=== PATIENT | male | born 1940 | race Caucasian/White ===

== ENCOUNTER 2016-08-01 09:58 | Inpatient (IN) ==
[2016-08-01] MEDS ORDERED: Albuterol 2.5 MG/3 ML NEBULIZER IH PRN (13:55)
--- NOTE | 2016-08-01 14:31 | Internal Med History&Physical ---
<Braeden Rueda - Last Filed: 08/02/16 12:58> Date of Encounter: 08/02/16 Time of Encounter: 14:00 Assessment and Plan (1) HCAP (healthcare-associated pneumonia) Current visit: Yes Status: Acute -Admission in 07/17/16 for pneumonia for 5 days. Abx unknown during treatment. -Patient on Bipap and tolerating it well. Is able to communicate without difficulty. -CXR on 07/30 shows bilateral pulmonary infiltrates. ECHO on 06/26/16 shows LVEF 60% -Labs ordered. Blood culture, sputum, Patient received leviquin and fluids in ED prior to transfer -Will continue abx, fluids, BIPAP. (2) Acute and chronic respiratory failure with hypoxia Current visit: Yes Status: Acute -Likely do to HCAP. See above (3) Chronic kidney disease (CKD) Current visit: Yes Status: Acute -Cr improving -Continue therapy. -Established with [facility]. Qualifiers: Chronic kidney disease stage: stage 3 (moderate) Qualified Code(s): N18.3 - Chronic kidney disease, stage 3 (moderate) (4) Tobacco abuse Current visit: No Status: Chronic -Smokes 2 cigars per day. -Consider adding nicotine patch. (5) Diabetes Current visit: Yes Status: Acute -Patient started on home DM regimen. Qualifiers: Diabetes mellitus type: type 2 Diabetes mellitus complication status: with unspecified complications Diabetes mellitus fci insulin use: with fci use Qualified Code(s): E11.8 - Type 2 diabetes mellitus with unspecified complications; Z79.4 - FPC (current) use of insulin (6) Goals of care, counseling/discussion Current visit: Yes Status: Acute -Patients KARAN is , Yenni, -Lives with . Good support. Established with [facility]. -Patient wishes to remain full code. (7) Alcohol abuse Current visit: No Status: Chronic - reports patient drinks 5/day. -A protocol in place. -Patient does not have signs of alcohol withdraw at this time. Internal Medicine - H&P: HPI Chief complaint: Shortness of Breath Admitted From: Hospital to Hospital Transfer Plans for Post Hospital Care: Home History of present illness: Mr. Cummins is a 76 year old male, PHM:HTN, ETOH, insulin req DM, DVT, CKD III, transferred from [facility] with acute respiratory failure. Patient had recent hospitalization for pneumonia on July 17 for 5 days and sent home on antibiotics. Unsure of abx in hospital and outpatient. Patient improved. He has never been intubated, but placed on home oxygen for the first time. On 07/31 patient's noticed his home oxygen saturation was 80%. brought patient to the ED. At that time, he did have a non productive cough, did not complain of sudden SOB, no fever, chest pain, headache or GI complaints. Currently, the patient is on BIPAP and tolerating it well. Feels like he can breath better. Still feels SOB. Besides the SOB, itching is his only complaint. He has had this issue for years and seems to improve with Lasix. Patient is on coumadin for DVT in 1991. Smokes 2 cigars a day. Drinks 5 beers per day. Yenni , his is his POA. 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 Past Med Surg Social Fam HX - Past Medical History Medical history: arthritis, asthma, COPD, DVT, diabetes, GERD, hyperlipidemia, hypertension, kidney stones, osteoporosis (Left hip avascular necrosis.), RA, renal disease, SVT, other (Psoriasis. Alcohol dependency. Anemia. Nicotine dependency.) Psychiatric history: no psych history, other - Past Surgical History Surgical History: hip replacement, ureteral stent, vascular surgery (Right lower extremity venous thrombectomy s/p DVT), other (Penile implant 2. Colonoscopy.) - Social History Smoking Status: Current every day smoker Smokeless Tobacco Status: No Alcohol use: occasionally, heavy (Drinks as much as 6-12 beers per day. Rarely less than 2-3 beers per day.) Drug use: none - Family History Father Living Status: Internal Medicine - H&P: Meds Warfarin [Coumadin] 5 mg PO Q48H 06/24/16 [History] Atorvastatin [Lipitor] 20 mg PO HS 07/01/16 [History] Carvedilol [Coreg] 12.5 mg PO BID 07/01/16 [History] Cholecalciferol (Vitamin D3) [Vitamin D3] 5,000 unit PO DAILY 07/01/16 [History] CloNIDine HCl [Clonidine HCl] 0.3 mg PO TID 07/01/16 [History] Doxazosin [Cardura] 4 mg PO BID 07/01/16 [History] Hydroxyzine HCl 25 mg PO Q6H 07/01/16 [History] Insulin DETEMIR [Levemir Flextouch] 26 unit SQ HS 07/01/16 [History] NIFEdipine XL (24 HR) [Procardia XL] 60 mg PO BID 07/01/16 [History] Sitagliptin Phosphate [Januvia] 50 mg PO DAILY 07/01/16 [History] Furosemide [Lasix] 40 mg PO DAILY 08/02/16 [History] Warfarin [Coumadin] 2.5 mg PO Q48H 08/02/16 [History] Allergies ciprofloxacin [From Cipro] Allergy (Verified 07/01/16 13:16) See Comments doxycycline Allergy (Verified 07/01/16 13:16) Redness of Skin Erythromycin Base Allergy (Verified 07/01/16 13:16) Rash guanfacine Allergy (Verified 07/01/16 13:16) See Comments ofloxacin Allergy (Verified 07/01/16 13:16) Hives Penicillins [PCN] Allergy (Verified 07/01/16 13:16) See Comments Procaine Allergy (Verified 07/01/16 13:16) See Comments sulfamethoxazole Allergy (Verified 07/01/16 13:16) See Comments Tocainide [From Tonocard] Allergy (Verified 07/01/16 13:16) See Comments All Systems PM: A 10-system review of systems was performed and is negative for pertinent findings except as documented above in the HPI. - Constitutional Constitutional: as per HPI, no chills, no fatigue, no fever(s), no night sweats , no weakness - EENT Eyes: no change in vision, no discharge, no pain, no photophobia - Cardiovascular Cardiovascular ROS IM: no chest pain, no diaphoresis, no dyspnea, no lightheadedness, no palpitations, no syncope - Respiratory Respiratory: cough, dyspnea, no pain on inspiration, no excessive phlegm production, no pain with cough - Gastrointestinal Gastrointestinal: no abdominal pain, no diarrhea, no hematemesis, no hematochezia, no melena, no nausea, no vomiting - Genitourinary Genitourinary ROS male: no difficulty urinating, no dysuria - Integumentary Integumentary IM: pruritus, sores (Diffuse. From itching. ) - Neurological Neurological ROS: no confusion, no convulsions, no focal weakness, no numbness, no tingling, no tremor(s) - Psychiatric Psychiatric: no confusion, no depression - Constitutional Vitals: Resp Pulse Ox 27 99 08/01/16 13:59 08/01/16 13:59 General appearance: Present: A&O X 3, pleasant, answers questions appropriately - Head Head exam: Present: atraumatic, normal inspection - Respiratory Respiratory exam: Present: rhonchi, wheezes - Cardiovascular Cardiovascular exam: Present: RRR, tachycardia. Absent: diastolic murmur, systolic murmur - GI/Abdominal GI/Abdominal exam: Present: soft, no peritoneal signs. Absent: distended, tenderness - Neurological Exam Neurological exam: Present: oriented X3, no focal deficits. Absent: speech deficit - Psychiatric Psychiatric exam: Present: normal affect, normal mood - Skin Additional comments: Sores from chronic itching throughout the body. Internal Med - H&P Results - Labs CBC & Chem 7: 08/02/16 07:49 08/02/16 05:28 <Willie Romero - Last Filed: 08/02/16 18:25> Date of Encounter: 08/01/16 Internal Medicine - H&P: HPI History of present illness: Mr. Cummins is a 76 year old male All Systems PM: A 10-system review of systems was performed and is negative for pertinent findings except as documented above in the HPI. - Constitutional Vitals: Temp Pulse Resp BP Pulse Ox 97.0 F L 75 27 108/76 95 08/02/16 15:00 08/02/16 15:00 08/02/16 16:25 08/02/16 15:00 08/02/16 16:25 Internal Med - H&P Results - Labs CBC & Chem 7: 08/02/16 07:49 08/02/16 05:28 Labs: Short CBC 08/02/16 Range/Units 07:49 WBC 13.7 H (4.3-11.1) K/mcL Hgb 10.5 L (12.9-16.9) g/dL Hct 31.2 L (37.5-50.1) % Plt Count 363 (140-400) K/mcL Neutrophils # 11.5 H (1.6-8.9) K/mcL BMP 08/02/16 05:28 Sodium 138 Potassium 3.3 L Chloride 104 Carbon Dioxide 22 BUN 27 H Creatinine 1.54 H Glucose 37 L* Calcium 9.1 - ABG Interpretation ABG results: 08/01/16 08/02/16 16:50 06:16 ABG pH 7.47 H 7.40 ABG pCO2 36 44 ABG pO2 68 L 68 L ABG HCO3 26.2 27.3 H ABG Total CO2 27.3 H 28.7 H ABG O2 Saturation 94 L 93 L ABG Base Excess 2.5 2.1 - Impressions ITS Impressions Chest X-Ray 08/01/16 13:55 IMPRESSION: 1. Worsening bilateral lung infiltrates, suspicious for pneumonia. D/ / 08/01/2016 17:33:33 Jabari Morse MD / [facility] Interpreting Provider: Jabari Morse MD - Attending Attestation I examined this patient and my medical decision-making was reviewed with the Resident Physician on 08/01/16. I agree with the documented findings, disposition and treatment plan as described except to the extent set forth below. Please see event note of this day for attestation. Pt high risk due to potential for further acute respiratory failure.
[2016-08-01 14:36] LABS: Basophils # 0.1 K/mcL (0.0-0.2); Basophils % 0.6 %; Eosinophils # 0.4 K/mcL (0.0-0.6); Eosinophils % 3.3 %; Hematocrit 34.5 % (37.5-50.1); Hemoglobin 11.6 g/dL (12.9-16.9); Immature Granulocytes % 0.5 % (0-4); Lymphocytes # 1.2 K/mcL (0.6-4.6); Mean Corpuscular HGB Conc 33.6 g/dL (31.6-35.5); Mean Corpuscular Hemoglobin 29.8 pg (28.0-33.3); Mean Corpuscular Volume 88.7 fL (83.0-100.0); Mean Platelet Volume 9.9 fL (9.4-12.4); Neutrophils # 9.6 K/mcL (1.6-8.9); Platelet Count 412 K/mcL (140-400); Red Blood Count 3.89 M/mcL (4.19-5.50); Red Cell Distribution Width 12.5 % (11.5-14.5); Segmented Neutrophils % 77.6 %
[2016-08-01 14:47] LABS: INR 3.6; Prothrombin Time 40.1 Seconds (9.4-12.1)
[2016-08-01 14:50] LABS: Activated Partial Thrombo Time 43.8 Seconds (26.0-36.0)
[2016-08-01 15:20] LABS: Albumin 2.9 g/dL (3.5-5.0); Albumin/Globulin Ratio 0.5 (1.1-2.2); Bilirubin,Total 0.5 mg/dL (0.2-1.2); Calcium 9.7 mg/dL (8.6-10.8); Globulin 5.3 g/dL (2.4-3.5); Potassium 4.1 mEq/L (3.5-4.5); Total Protein 8.2 g/dL (6.0-8.3)
[2016-08-01] MEDS: Ipratropium/Albuterol Neb 3 ML IH SCH ×2 (16:21→22:10)
[2016-08-01 16:57] LABS: ABG Base Excess 2.5 mEq/L (-2.0 to 3.0); ABG HCO3 26.2 mEQ/L (21-27); ABG Oxygen Saturation 94 % (95-98); ABG PCO2 36 mmHg (35-45); ABG PH 7.47 pH Units (7.32-7.45); ABG PO2 68 mmHg (85-104); ABG TCO2 27.3 mEq/L (20-26)
[2016-08-01 16:58] LABS: Blood Gas FiO2 35 %
[2016-08-01] MEDS ORDERED: *HR* Warfarin 2.5 MG TABLET PO SCH (18:00)
[2016-08-01] MEDS ORDERED: Dextrose Gel 15 GM PO PRN ×2 (18:24)
[2016-08-01] MEDS ORDERED: *HR* Dextrose 50 % in Water (Syg) 50 ML SYRINGE IVP PRN (18:24)
[2016-08-01] MEDS ORDERED: D5% in Water 1,000 ML IV PRN (18:24)
[2016-08-01] MEDS ORDERED: *HR* LORazepam 2 MG/ML VIAL IVP PRN ×3 (18:26)
--- NOTE | 2016-08-01 18:37 | Event Note ---
Date of Encounter: 08/01/16 Time of Encounter: 14:00 Full H&P to be completed 76 y/o male with history of HTN, ETOH and insulin req DM transferred from [facility] with acute respiratory failure. Pt recently hospitalized end of June for hypertensive emergency and again early Jul for pneumonia. He continued to have significant dyspnea. His oxygen saturation was 70% and he was started on bipap. At the time of arrival here he is feeling somewhat better. He remains on bipap with oxygen saturation of 90% Exam Alert. Moderate resp distress at rest Heart tachy and regular Lungs with diffuse rhonchi bilaterally. No wheeze No edema I/P 1. Acute hypoxic resp failure 2. Multifocal pneumonia 3. ETOH abuse 4. Tobacco abuse 5. HTN 6. Ins req DM 7. CKD 3 Pt is high risk for worsening respiratory complications. He is admitted inpatient and is full code per our conversation. His is POA.
[2016-08-01] MEDS: cloNIDine HCl 0.1 MG TABLET PO SCH ×2 (18:50→20:23)
[2016-08-01] MEDS ORDERED: Vancomycin (wt based) 1,000 MG VIAL IVPB SCH (19:00)
[2016-08-01] MEDS ORDERED: Vancomycin 2,000 MG in D5% in Water 500 ML IVPB ONE (19:00)
[2016-08-01] MEDS: Thiamine (B-1) 100 MG, Folic Acid 1 MG, MVI, adult with vitamin K 10 ML in 0.9 % Sodi... IV SCH (19:23)
[2016-08-01] MEDS: NIFEdipine XL (24 HR) 60 MG TAB.ER.24 PO SCH (20:22)
[2016-08-01] MEDS: Insulin LISPRO 300 UNITS/3 ML VIAL SQ SCH (20:23)
[2016-08-01] MEDS: Insulin DETEMIR 100 UNIT/ML X5UNITS SQ SCH (20:23)
[2016-08-01] MEDS ORDERED: INSULIN DETEMIR 26 UNIT SQ SCH (21:00)
[2016-08-01] MEDS: Aztreonam 2,000 MG in D5% in Water (Mini-Bag+) 100 ML IVPB SCH (23:42)
[2016-08-02] MEDS ORDERED: *HR* LORazepam 1 MG TABLET PO ONE (03:25)
[2016-08-02] MEDS: Ipratropium/Albuterol Neb 3 ML IH SCH ×4 (04:28→22:46)
[2016-08-02 06:17] LABS: INR 3.3; Prothrombin Time 36.9 Seconds (9.4-12.1)
[2016-08-02 06:24] LABS: ABG Base Excess 2.1 mEq/L (-2.0 to 3.0); ABG HCO3 27.3 mEQ/L (21-27); ABG Oxygen Saturation 93 % (95-98); ABG PCO2 44 mmHg (35-45); ABG PO2 68 mmHg (85-104); ABG TCO2 28.7 mEq/L (20-26); Blood Gas FiO2 40 %
[2016-08-02 06:26] LABS: Calcium 9.1 mg/dL (8.6-10.8); Magnesium 1.4 mg/dL (1.6-2.6); Potassium 3.3 mEq/L (3.5-4.5)
--- NOTE | 2016-08-02 08:17 | Internal Med Progress Note ---
<Braeden Rueda - Last Filed: 08/02/16 13:37> Date of Encounter: 08/02/16 Time of Encounter: 08:15 - Assessment and plan (1) HCAP (healthcare-associated pneumonia) Current Visit: Yes Status: Acute Assessment and plan: -Admission on 07/17/16 for pneumonia for 5d. Abx unknown during treatment -Patient on Bipap and tolerating it well. Is able to communicate without difficulty -CXR on 07/30 shoes bilateral pulmonary infiltrates. ECHO on in June 2016 showed LVEF 60% -Awaiting BC and sputum culture. -Patient has multiple allergies making abx choice difficult. Pseudomonas coverage, atypical and anaerobes. Currently on Vanc, Levaquin, and Aztreonam. -Consider switching abx to merpenem, vanc and gentamicin. (2) Acute and chronic respiratory failure with hypoxia Current Visit: Yes Status: Acute Assessment and plan: -Likely due to HCAP -See above. (3) Chronic kidney disease (CKD) Current Visit: Yes Status: Acute Assessment and plan: -Monitor Qualifiers: Chronic kidney disease stage: stage 3 (moderate) Qualified Code(s): N18.3 - Chronic kidney disease, stage 3 (moderate) (4) Tobacco abuse Current Visit: No Status: Chronic Assessment and plan: -Consider adding nicotine patch. (5) Diabetes Current Visit: Yes Status: Acute Assessment and plan: -Patient became hypoglycemic on home medication. Amp given. No complications -Insulin adjusted Qualifiers: Diabetes mellitus type: type 2 Diabetes mellitus complication status: with unspecified complications Diabetes mellitus adjunct faculty for medical terminology insulin use: with adjunct faculty for medical terminology use Qualified Code(s): E11.8 - Type 2 diabetes mellitus with unspecified complications; Z79.4 - USP (current) use of insulin (6) Goals of care, counseling/discussion Current Visit: Yes Status: Acute Assessment and plan: -Patients KARAN is , Yenni, -Lives with . Good support. Established with [facility] -Patient wishes to remain full code. (7) Alcohol abuse Current Visit: No Status: Chronic - Time Spent With Patient 25 - 35 minutes - Subjective Interval history: Patient states that he feels a little better today than yesterday.Still requiring the bipap. Is able to make complete sentences. Admits to being SOB without the bipap. Denies CP, cough. He is resting comfortably in bed. at bedside. - Constitutional Vitals: Temp Pulse Resp BP Pulse Ox 97.9 F 61 24 125/70 94 L 08/02/16 06:53 08/02/16 06:53 08/02/16 06:53 08/02/16 06:53 08/02/16 06:53 General appearance: Present: A&O X 3, pleasant, answers questions appropriately - Respiratory Respiratory exam: Present: decreased breath sounds, wheezes - Cardiovascular Cardiovascular exam: Present: RRR. Absent: diastolic murmur, systolic murmur - GI/Abdominal GI/Abdominal exam: Present: soft, no peritoneal signs. Absent: distended, tenderness - Neurological Exam Neurological exam: Present: alert, oriented X3 - Psychiatric Psychiatric exam: Present: normal affect, normal mood Internal Medicine: Result - Labs CBC & Chem 7: 08/02/16 07:49 08/02/16 05:28 Labs: Short CBC 08/01/16 Range/Units 14:16 WBC 12.4 H (4.3-11.1) K/mcL Hgb 11.6 L (12.9-16.9) g/dL Hct 34.5 L (37.5-50.1) % Plt Count 412 H (140-400) K/mcL Neutrophils # 9.6 H (1.6-8.9) K/mcL BMP 08/01/16 08/02/16 14:16 05:28 Sodium 140 138 Potassium 4.1 3.3 L Chloride 105 104 Carbon Dioxide 23 22 BUN 32 H 27 H Creatinine 1.87 H 1.54 H Glucose 161 H 37 L* Calcium 9.7 9.1 Liver Function 08/01/16 Range/Units 14:16 Total Bilirubin 0.5 (0.2-1.2) mg/dL AST 17 (5-34) Units/L ALT 13 (0-55) Units/L Alkaline Phosphatase 178 H (38-126) Units/L Albumin 2.9 L (3.5-5.0) g/dL - ABG Interpretation Interpretation: ABG interpreted by id ABG results: ABG ABG pH 7.40 pH Units (7.32-7.45) 08/02/16 06:16 ABG pCO2 44 mmHg (35-45) 08/02/16 06:16 ABG pO2 68 mmHg (85-104) L 08/02/16 06:16 ABG O2 Saturation 93 % (95-98) L 08/02/16 06:16 PT/INR, D-dimer PT 36.9 Seconds (9.4-12.1) H 08/02/16 05:28 - Impressions Impressions Chest X-Ray 08/01/16 13:55 IMPRESSION: 1. Worsening bilateral lung infiltrates, suspicious for pneumonia. D/ / 08/01/2016 17:33:33 Jabari Morse MD / [facility] Interpreting Provider: Jabari Morse MD Consult Discharge Plan - Plan Referrals: Silas Shah MD [Primary Care Provider] - <Willie Romero - Last Filed: 08/02/16 18:35> Date of Encounter: 08/02/16 - Assessment and plan (1) Acute and chronic respiratory failure with hypoxia Current Visit: Yes Status: Acute (2) Pneumonia Current Visit: Yes Status: Suspected Qualifiers: Pneumonia type: due to other aerobic Gram-negative bacteria Laterality: bilateral Lung location: unspecified part of lung Qualified Code(s): J15.6 - Pneumonia due to other aerobic Gram-negative bacteria (3) Chronic kidney disease (CKD) Current Visit: Yes Status: Acute Qualifiers: Chronic kidney disease stage: stage 3 (moderate) Qualified Code(s): N18.3 - Chronic kidney disease, stage 3 (moderate) (4) Alcohol abuse Current Visit: No Status: Chronic (5) Nicotine dependence with nicotine-induced disorder Current Visit: No Status: Chronic Qualifiers: Nicotine product type: other Qualified Code(s): F17.299 - Nicotine dependence, other tobacco product, with unspecified nicotine-induced disorders (6) COPD (chronic obstructive pulmonary disease) Current Visit: No Status: Chronic Qualifiers: COPD type: emphysema Emphysema type: panlobular Qualified Code(s): J43.1 - Panlobular emphysema (7) Hypertension associated with chronic kidney disease due to type 2 diabetes mellitus Current Visit: Yes Status: Chronic - Constitutional Vitals: Temp Pulse Resp BP Pulse Ox 97.0 F L 75 27 108/76 95 08/02/16 15:00 08/02/16 15:00 08/02/16 16:25 08/02/16 15:00 08/02/16 16:25 Internal Medicine: Result - Labs CBC & Chem 7: 08/02/16 07:49 08/02/16 05:28 Labs: Short CBC 08/02/16 Range/Units 07:49 WBC 13.7 H (4.3-11.1) K/mcL Hgb 10.5 L (12.9-16.9) g/dL Hct 31.2 L (37.5-50.1) % Plt Count 363 (140-400) K/mcL Neutrophils # 11.5 H (1.6-8.9) K/mcL BMP 08/02/16 05:28 Sodium 138 Potassium 3.3 L Chloride 104 Carbon Dioxide 22 BUN 27 H Creatinine 1.54 H Glucose 37 L* Calcium 9.1 - ABG Interpretation ABG results: ABG ABG pH 7.40 pH Units (7.32-7.45) 08/02/16 06:16 ABG pCO2 44 mmHg (35-45) 08/02/16 06:16 ABG pO2 68 mmHg (85-104) L 08/02/16 06:16 ABG O2 Saturation 93 % (95-98) L 08/02/16 06:16 PT/INR, D-dimer PT 36.9 Seconds (9.4-12.1) H 08/02/16 05:28 - Attending Attestation I examined this patient and my medical decision-making was reviewed with the Resident Physician on 08/02/16. I agree with the documented findings, disposition and treatment plan as described except to the extent set forth below. Mr. Cummins is currently admitted for acute hypoxic respiratory failure. He remains high risk due to potential for worsening respiratory status and failure. Mr. Cummins is off bipap to eat lunch. He is dropping his oxygen saturation while eating but it does come up. He says he feels somewhat better today. No CP. Not eating very much. Probably constipated. No abdominal pain. Exam Alert. Moderate respiratory distress while eating. Mucus membranes moist Heart reg Lungs with diffuse wheeze but clearer than yesterday. Abd soft. No edema Current labs reviewed I/P 1. Acute on chronic hypoxic respiratory failure 2. Acute HCAP 3. CKD 3 4. tobacco abuse Further diagnoses and plan as above.
[2016-08-02 08:29] LABS: Basophils # 0.1 K/mcL (0.0-0.2); Basophils % 0.4 %; Eosinophils # 0.2 K/mcL (0.0-0.6); Eosinophils % 1.7 %; Hematocrit 31.2 % (37.5-50.1); Hemoglobin 10.5 g/dL (12.9-16.9); Lymphocytes # 0.8 K/mcL (0.6-4.6); Mean Corpuscular HGB Conc 33.7 g/dL (31.6-35.5); Mean Corpuscular Hemoglobin 30.1 pg (28.0-33.3); Mean Corpuscular Volume 89.4 fL (83.0-100.0); Mean Platelet Volume 10.2 fL (9.4-12.4); Monocytes % 7.2 %; Neutrophils # 11.5 K/mcL (1.6-8.9); Platelet Count 363 K/mcL (140-400); Red Blood Count 3.49 M/mcL (4.19-5.50); Red Cell Distribution Width 12.5 % (11.5-14.5); Segmented Neutrophils % 83.7 %
[2016-08-02] MEDS: Insulin LISPRO 300 UNITS/3 ML VIAL SQ SCH ×4 (09:26→20:41)
[2016-08-02] MEDS: Aztreonam 2,000 MG in D5% in Water (Mini-Bag+) 100 ML IVPB SCH ×3 (09:28→23:24)
[2016-08-02] MEDS: Levofloxacin 750 MG/150 ML 750 MG/150 ML BAG IVPB SCH (09:29)
[2016-08-02] MEDS: Magnesium Oxide 400 MG TABLET PO SCH (09:30)
[2016-08-02] MEDS: Cholecalciferol (D-3) 1,000 UNIT TABLET PO SCH (09:30)
[2016-08-02] MEDS: NIFEdipine XL (24 HR) 60 MG TAB.ER.24 PO SCH ×2 (09:30→20:40)
[2016-08-02] MEDS: cloNIDine HCl 0.1 MG TABLET PO SCH ×3 (09:30→20:40)
[2016-08-02] MEDS ORDERED: *HR* LORazepam 2 MG/ML VIAL IVP PRN (09:42)
[2016-08-02] MEDS: Thiamine (B-1) 100 MG, Folic Acid 1 MG, MVI, adult with vitamin K 10 ML in 0.9 % Sodi... IV SCH (11:06)
[2016-08-02] MEDS ORDERED: Vancomycin 2,000 MG in D5% in Water 500 ML IVPB SCH (13:00)
[2016-08-02] MEDS: 0.9 % Sodium Chloride 1,000 ML IVC SCH (14:10)
[2016-08-02] MEDS ORDERED: Warfarin perPT PO PRN (18:00)
[2016-08-02] MEDS ORDERED: *HR* Warfarin 5 MG TABLET PO SCH (18:00)
[2016-08-02] MEDS ORDERED: *HR* Warfarin 4 MG TABLET PO ONE (18:00)
[2016-08-02] MEDS: Insulin DETEMIR 100 UNIT/ML X5UNITS SQ SCH (23:23)
[2016-08-03 03:43] LABS: Basophils # 0.1 K/mcL (0.0-0.2); Basophils % 0.7 %; Eosinophils # 0.3 K/mcL (0.0-0.6); Eosinophils % 2.9 %; Hematocrit 27.2 % (37.5-50.1); Hemoglobin 9.2 g/dL (12.9-16.9); Immature Granulocytes % 0.5 % (0-4); Lymphocytes # 1.1 K/mcL (0.6-4.6); Lymphocytes % 9.5 %; Mean Corpuscular HGB Conc 33.8 g/dL (31.6-35.5); Mean Corpuscular Volume 88.6 fL (83.0-100.0); Monocytes # 1.1 K/mcL (0.0-1.3); Monocytes % 9.8 %; Neutrophils # 8.6 K/mcL (1.6-8.9); Platelet Count 310 K/mcL (140-400); Red Blood Count 3.07 M/mcL (4.19-5.50); Red Cell Distribution Width 12.6 % (11.5-14.5); Segmented Neutrophils % 76.6 %
[2016-08-03 03:48] LABS: INR 2.2; Prothrombin Time 24.7 Seconds (9.4-12.1)
[2016-08-03 03:57] LABS: Calcium 8.3 mg/dL (8.6-10.8); Magnesium 1.1 mg/dL (1.6-2.6); Phosphorous 3.2 mg/dL (2.3-4.7); Potassium 4.1 mEq/L (3.5-4.5)
[2016-08-03 05:18] LABS: ABG Base Excess 2.4 mEq/L (-2.0 to 3.0); ABG HCO3 26.2 mEQ/L (21-27); ABG Oxygen Saturation 96 % (95-98); ABG PCO2 36 mmHg (35-45); ABG PH 7.47 pH Units (7.32-7.45); ABG PO2 75 mmHg (85-104); ABG TCO2 27.3 mEq/L (20-26)
[2016-08-03 05:19] LABS: Blood Gas FiO2 40 %
[2016-08-03] MEDS: Ipratropium/Albuterol Neb 3 ML IH SCH ×5 (05:29→23:31)
[2016-08-03] MEDS: 0.9 % Sodium Chloride 1,000 ML IVC SCH (06:04)
[2016-08-03] MEDS: Aztreonam 2,000 MG in D5% in Water (Mini-Bag+) 100 ML IVPB SCH ×3 (07:38→23:42)
[2016-08-03] MEDS: Insulin LISPRO 300 UNITS/3 ML VIAL SQ SCH ×4 (07:38→20:03)
[2016-08-03] MEDS: Cholecalciferol (D-3) 1,000 UNIT TABLET PO SCH (07:39)
[2016-08-03] MEDS: NIFEdipine XL (24 HR) 60 MG TAB.ER.24 PO SCH ×2 (07:39→22:03)
[2016-08-03] MEDS: cloNIDine HCl 0.1 MG TABLET PO SCH ×3 (07:40→22:03)
[2016-08-03] MEDS: Magnesium Oxide 400 MG TABLET PO SCH (07:40)
--- NOTE | 2016-08-03 09:19 | Internal Med Progress Note ---
Addendum entered and electronically signed by Braeden Rueda DO 10:53: Omit the subjective portion of note Patient feeling worse today compared to yesterday.Increase work of breathing. He is able to make speak complete sentences Patient getting tired, been on the BIPAP constantly since arrival. Failed venti mask. Talked with patient the likely pierre of being intubated, ICU transfer and care. Patient wishes to be intubated if necessary and continue being a full code. not present at bedside. Original Note: <Braeden Rueda - Last Filed: 08/03/16 18:24> Date of Encounter: 08/03/16 Time of Encounter: 09:17 - Assessment and plan (1) HCAP (healthcare-associated pneumonia) Current Visit: Yes Status: Acute Assessment and plan: -Admission on 07/17/16 for pneumonia for 5d. Abx unknown during treatment -Trial of Venti Mask ineffective. Bipap resumed. Tolerating well. -CXR on 07/30 shoes bilateral pulmonary infiltrates. ECHO on in June 2016 showed LVEF 60%. CT Chest 08/03 shows multifocal pneumonia and pleural effusions. Patient has never had thorocentesis. Will monitor. Thorocentesis not needed at this time. -BC and sputum culture negative. -Patient has multiple allergies making abx choice difficult. Pseudomonas coverage, atypical and anaerobes. Currently on Vanc, Levaquin, and Aztreonam. WBC is trending down. Will continue. If need be, consider switching abx to merpenem, vanc and gentamicin. -Because patient is still requiring bipap and failed venti mask, CT shows multifocal pneumonia, will get pulmonary consult. Bronchoscope desired, but patient unable to tolerate procedure because 02 stats in 70's without bipap. (2) Acute and chronic respiratory failure with hypoxia Current Visit: Yes Status: Acute Assessment and plan: -Likely due to HCAP -See above. (3) Chronic kidney disease (CKD) Current Visit: Yes Status: Acute Assessment and plan: -Monitor Qualifiers: Chronic kidney disease stage: stage 3 (moderate) Qualified Code(s): N18.3 - Chronic kidney disease, stage 3 (moderate) (4) Tobacco abuse Current Visit: No Status: Chronic Assessment and plan: -Consider adding nicotine patch. (5) Diabetes Current Visit: Yes Status: Acute Assessment and plan: -Patient is not eating or drinking. Difficult with bipap and not hungry. -Became hypoglycemic and A&Ox3 during this episode. Basal insulin held tonight and patient started on D5 1/2NS -Continue accuchecks and monitor. 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 Good support. Established with [place] PCP -Patient wishes to remain full code. (7) Alcohol abuse Current Visit: No Status: Chronic Assessment and plan: -CWA protocol in place. - Subjective Interval history: Mr. Cummins states that he feels moderately better today than yesterday. He is still requiring bipap. Is able to make complete sentences. Admits to being SOB without the bipap. Denies CP, cough. He is resting comfortably in bed. at bedside. - Constitutional Vitals: Temp Pulse Resp BP Pulse Ox 97.8 F 61 26 131/76 95 08/03/16 07:04 08/03/16 07:04 08/03/16 07:04 08/03/16 07:04 08/03/16 07:04 General appearance: Present: cooperative, A&O X 3, pleasant, answers questions appropriately - Head Head exam: Present: atraumatic, normocephalic - Eye Eye exam: Present: conjuntiva pink, sclera anicteric - Neck Neck exam general surgery: Present: supple, trachea midline. Absent: lymphadenopathy - Respiratory Respiratory exam: Absent: accessory muscle use, rales, rhonchi, wheezes Additional comments: Requires bipap. If removed, stat at 70% - Cardiovascular Cardiovascular exam: Present: RRR, +S1, +S2. Absent: diastolic murmur, gallop, rubs, systolic murmur - GI/Abdominal GI/Abdominal exam: Present: normal bowel sounds, soft, no peritoneal signs. Absent: distended, tenderness - Extremities Exam Extremities exam: Present: warm, radial pulses palpable and symetrical. Absent : calf tenderness, cyanotic, pedal edema - Neurological Exam Neurological exam: Present: alert, oriented X3, no focal deficits. Absent: pronater drift, facial droop, speech deficit - Psychiatric Psychiatric exam: Present: normal affect, normal mood - Skin Skin exam: Present: dry, intact Internal Medicine: Result - Labs CBC & Chem 7: 08/03/16 03:25 08/03/16 03:25 Labs: Short CBC 08/03/16 Range/Units 03:25 WBC 11.3 H (4.3-11.1) K/mcL Hgb 9.2 L (12.9-16.9) g/dL Hct 27.2 L (37.5-50.1) % Plt Count 310 (140-400) K/mcL Neutrophils # 8.6 (1.6-8.9) K/mcL BMP 08/03/16 03:25 Sodium 136 Potassium 4.1 Chloride 103 Carbon Dioxide 24 BUN 27 H Creatinine 1.58 H Glucose 106 H Calcium 8.3 L - ABG Interpretation Interpretation: ABG interpreted by me ABG results: ABG ABG pH 7.47 pH Units (7.32-7.45) H 08/03/16 05:07 ABG pCO2 36 mmHg (35-45) 08/03/16 05:07 ABG pO2 75 mmHg (85-104) L 08/03/16 05:07 ABG O2 Saturation 96 % (95-98) 08/03/16 05:07 PT/INR, D-dimer PT 24.7 Seconds (9.4-12.1) H 08/03/16 03:25 Interpretation: abnormal - Diagnostic Studies CT scan - chest Status: image reviewed by me Additional comments: Reviewed with patient and at bedside. Consult Discharge Plan - Plan Referrals: Silas Shah MD [Primary Care Provider] - <Willie Romero - Last Filed: 08/03/16 18:41> Date of Encounter: 08/03/16 - Assessment and plan (1) Acute and chronic respiratory failure with hypoxia Current Visit: Yes Status: Acute (2) Pneumonia Current Visit: Yes Status: Suspected Qualifiers: Pneumonia type: due to other aerobic Gram-negative bacteria Laterality: bilateral Lung location: unspecified part of lung Qualified Code(s): J15.6 - Pneumonia due to other aerobic Gram-negative bacteria (3) Chronic kidney disease (CKD) Current Visit: Yes Status: Acute Qualifiers: Chronic kidney disease stage: stage 3 (moderate) Qualified Code(s): N18.3 - Chronic kidney disease, stage 3 (moderate) (4) Alcohol abuse Current Visit: No Status: Chronic (5) Nicotine dependence with nicotine-induced disorder Current Visit: No Status: Chronic Qualifiers: Nicotine product type: other Qualified Code(s): F17.299 - Nicotine dependence, other tobacco product, with unspecified nicotine-induced disorders (6) COPD (chronic obstructive pulmonary disease) Current Visit: No Status: Chronic Qualifiers: COPD type: emphysema Emphysema type: panlobular Qualified Code(s): J43.1 - Panlobular emphysema (7) Hypertension associated with chronic kidney disease due to type 2 diabetes mellitus Current Visit: Yes Status: Chronic - Constitutional Vitals: Temp Pulse Resp BP Pulse Ox 97.4 F L 58 27 130/66 94 L 08/03/16 15:00 08/03/16 15:00 08/03/16 15:43 08/03/16 15:00 08/03/16 15:43 Internal Medicine: Result - Labs CBC & Chem 7: 08/03/16 03:25 08/03/16 03:25 Labs: Short CBC 08/03/16 Range/Units 03:25 WBC 11.3 H (4.3-11.1) K/mcL Hgb 9.2 L (12.9-16.9) g/dL Hct 27.2 L (37.5-50.1) % Plt Count 310 (140-400) K/mcL Neutrophils # 8.6 (1.6-8.9) K/mcL BMP 08/03/16 03:25 Sodium 136 Potassium 4.1 Chloride 103 Carbon Dioxide 24 BUN 27 H Creatinine 1.58 H Glucose 106 H Calcium 8.3 L - ABG Interpretation ABG results: ABG ABG pH 7.47 pH Units (7.32-7.45) H 08/03/16 05:07 ABG pCO2 36 mmHg (35-45) 08/03/16 05:07 ABG pO2 75 mmHg (85-104) L 08/03/16 05:07 ABG O2 Saturation 96 % (95-98) 08/03/16 05:07 PT/INR, D-dimer PT 24.7 Seconds (9.4-12.1) H 08/03/16 03:25 - Impressions Impressions Chest CT 08/03/16 11:00 IMPRESSION: Multifocal pneumonia with small pleural effusions. Small mediastinal nodes are seen, likely reactive D/ / Juancarlos Smith MD / Juancarlos Smith MD Interpreting Provider: Juancarlos Smith MD - Attending Attestation I examined this patient and my medical decision-making was reviewed with the Resident Physician on 08/03/16. I agree with the documented findings, disposition and treatment plan as described except to the extent set forth below. Mr. Cummins is currently admitted for acute hypoxic resp failure due to multifocal pneumonia which is HCAP. He remains high risk due to persistent hypoxemia despite treatment. Mr. Cummins still desaturates with removing the bipap. He is unable to tolerate a venti mask. No CP. Coughing some but not much up. No GI symptoms. No fever. Has not been eating much due to the hypoxemia and bipap and blood sugars have been low. Exam Alert. Mod resp distress Diffuse rales and rhonchi noted bilaterally Heart regular Abd distended and full of air. No edema CT done I/P 1. Acute hypoxic resp failure due to multifocal pneumonia 2. Alcohol abuse Further diagnoses and plan as above.
[2016-08-03] MEDS: Levofloxacin 750 MG/150 ML 750 MG/150 ML BAG IVPB SCH (09:46)
[2016-08-03] MEDS: Simethicone 80 MG TAB.CHEW PO SCH ×3 (13:13→22:02)
[2016-08-03] MEDS ORDERED: Benzocaine 20% 9 GM GEL..GRAM. TP PRN (13:16)
[2016-08-03] MEDS ORDERED: [UNRECOGNIZED DRUG - OTHER] IVC SCH (17:15)
[2016-08-03] MEDS: Thiamine (B-1) 100 MG, Folic Acid 1 MG, MVI, adult with vitamin K 10 ML in 0.9 % Sodi... IV SCH (17:23)
[2016-08-03] MEDS ORDERED: D5% in 0.9% NACL 1,000 ML IVC ONE (17:39)
[2016-08-03] MEDS ORDERED: *HR* Warfarin 5 MG TABLET PO ONE (18:00)
[2016-08-03] MEDS: D5% in 0.9% NACL 1,000 ML IVC SCH (20:02)
[2016-08-04] MEDS: Ipratropium/Albuterol Neb 3 ML IH SCH ×5 (04:26→20:03)
[2016-08-04 05:14] LABS: Basophils # 0.1 K/mcL (0.0-0.2); Basophils % 0.4 %; Eosinophils # 0.3 K/mcL (0.0-0.6); Hemoglobin 9.2 g/dL (12.9-16.9); Immature Granulocytes % 1.2 % (0-4); Lymphocytes # 1.3 K/mcL (0.6-4.6); Lymphocytes % 9.6 %; Mean Corpuscular HGB Conc 32.9 g/dL (31.6-35.5); Mean Corpuscular Hemoglobin 29.8 pg (28.0-33.3); Mean Corpuscular Volume 90.6 fL (83.0-100.0); Mean Platelet Volume 10.5 fL (9.4-12.4); Monocytes # 1.6 K/mcL (0.0-1.3); Monocytes % 11.5 %; Neutrophils # 10.4 K/mcL (1.6-8.9); Platelet Count 336 K/mcL (140-400); Red Blood Count 3.09 M/mcL (4.19-5.50); Segmented Neutrophils % 75.3 %
[2016-08-04 05:22] LABS: Calcium 8.2 mg/dL (8.6-10.8); Potassium 4.8 mEq/L (3.5-4.5)
[2016-08-04 05:29] LABS: ABG Base Excess -4.9 mEq/L (-2.0 to 3.0); ABG HCO3 18.8 mEQ/L (21-27); ABG Oxygen Saturation 90 % (95-98); ABG PCO2 29 mmHg (35-45); ABG PH 7.42 pH Units (7.32-7.45); ABG PO2 58 mmHg (85-104); ABG TCO2 19.7 mEq/L (20-26)
[2016-08-04 05:30] LABS: Blood Gas FiO2 45 %
[2016-08-04 05:34] LABS: INR 2.4; Prothrombin Time 26.9 Seconds (9.4-12.1)
[2016-08-04] MEDS ORDERED: *HR* Etomidate 40 MG/20 ML VIAL IVP ONE (07:45)
[2016-08-04] MEDS ORDERED: *HR* Midazolam HCl 2 MG/2 ML VIAL IV ONE (07:45)
[2016-08-04] MEDS ORDERED: *HR* Midazolam HCl 5 MG/5 ML VIAL IVP ONE (07:45)
[2016-08-04] MEDS ORDERED: *HR* Rocuronium Bromide 100 MG/10 ML VIAL IVC ONE (07:45)
[2016-08-04] MEDS ORDERED: Aztreonam 1,000 MG in D5% in Water (Mini-Bag+) 100 ML IVPB SCH (08:03)
[2016-08-04] MEDS: D5% in 0.9% NACL 1,000 ML IVC SCH (08:11)
[2016-08-04] MEDS: Cholecalciferol (D-3) 1,000 UNIT TABLET PO SCH (08:13)
[2016-08-04] MEDS: cloNIDine HCl 0.1 MG TABLET PO SCH ×3 (08:14→21:15)
[2016-08-04] MEDS: Simethicone 80 MG TAB.CHEW PO SCH ×3 (08:15→21:14)
[2016-08-04] MEDS: Magnesium Oxide 400 MG TABLET PO SCH (08:15)
[2016-08-04] MEDS: NIFEdipine XL (24 HR) 60 MG TAB.ER.24 PO SCH (08:15)
[2016-08-04] MEDS: Insulin LISPRO 300 UNITS/3 ML VIAL SQ SCH ×4 (08:16→21:08)
[2016-08-04 09:03] LABS: Thyroid Stimulating Hormone 6.026 mcIU/mL (0.350-4.840)
[2016-08-04] MEDS ORDERED: Aminoglycoside Consult 1 EACH MC ONE (09:07)
--- NOTE | 2016-08-04 09:22 | Pulmonology Consult Note ---
<Bina Berger - Last Filed: 08/04/16 13:46> Date of Encounter: 08/04/16 Time of Encounter: 09:45 Assessment and Plan (1) ARDS (adult respiratory distress syndrome) Current Visit: Yes Status: Acute Patient presented to the ICU in respiratory distress with tachypnea, tachycardia , diaphoresis and use of accessory muscles of respiration as well as a cough. Arterial blood gases revealed hypoxemia. Patient meets criteria for ARDS: Respiratory symptoms have begun within a week and the patient's clinical symptoms have progressively worsened as patient initially had dyspnea and hypoxemia progressing to acute respiratory failure. However, given symptoms may be due to pneumonia, sepsis, aspiration as patient has not had known trauma. Most likely etiology may be pneumonia. Differential does include acute hypoxemic respiratory failure with bilateral alveolar infiltrates. Reform criteria: -patient has bilateral opacities on chest x-ray which are not fully explained by cardiac failure or fluid overload, pleural effusion, lobar collapse, lung collapse or pulmonary nodule; a PaO2/FiO2 ratio of less than 300 patient is currently at 58/.45 = 128.8 ;on PEEP greater than 5 cm of water patient is currently at a PEEP of 10. Currently stratified as moderate ARDS. Patient's risk factor for ARDS was recent pneumonia which puts him at significant risk for a pulmonary source of sepsis. Supportive care: -Fluid balance should be maintained at neutral or negative balance. Will hold supplemental fluids for conservative management of fluids evidence is based on the FACTT trial. -Maintain CVP of less than 4. -Maintain arterial pressure greater than 60. -Enternal nutritional support -DVT prophylaxis -stress ulcer prophylaxis If patient receives low tidal volume and has a pH of less than 7.15 despite our increase in ventilatory rate - we may consider a bicarbonate infusion. Steroids may be considered as this episode is less than 1 week as of today. Antibiotic therapy: We will continue on Levaquin and Vancomycin pending results of blood culture, sputum culture, urine antigens for Legionella and streptococcal. Optimizing ventilation for better outcome: Continue sedation to reduce patient ventilator dyssynchrony. No specific guideline for ARDS however if the patient is difficult to oxygenate heavy sedation may be required 4-5 on the Leija agitation sedation scale. Continue paralytic either intermittent doses or continuous IV infusion with monitoring if oxygenation cannot be achieved despite low tidal volume ventilation and adequate sedation or continued evidence of ventilator patient dyssynchrony. Prone positioning is not available at this institution. History of Present Illness Consult date: 08/04/16 Requesting physician: Willie Romero Reason for consult: dyspnea, cough, hypoxemia Chief complaint: Increased difficulty breathing History of present illness: Patient is a 76-year-old male with a past medical history of daily alcohol use 5 beers per day, tobacco use smoking 2 cigars per day, hypertension, insulin- dependent diabetes, chronic kidney disease stage III, history of DVTs, chronic pruritus, who on 07/31/16 was reported to be desaturating. The patient's noticed that the patient's home oxygen saturation had dropped to the 80's and she took him to the emergency department. Patient's only complaint was nonproductive cough. Patient was recently hospitalized on 07/17/16 for 5 days for pneumonia and was sent home on some unknown antibiotic to be treated as outpatient as well being initiated on home oxygen. Patient was transferred from [facility] and admitted to [facility] 08/01/16. During his course at [facility], patient was placed on BiPAP and initially tolerated it well for the first few days however he remained "short of breath ". On patient began feeling worse having increased work of breathing and difficulty completing sentences. Patient had been on BiPAP continually since admission having failed a Ventimask and was transferred to the ICU for progression of his dyspnea and hypoxemia into respiratory failure. On arrival to the ICU at approximately 935 the patient was on BiPAP 45% FiO2 respiratory rate in the 30s with labored breathing use of accessory muscles and inability to complete full sentences. Blood pressure 154/94, heart rate 71, respiration rate at 30, oxygen saturation 91%. Discussed intubation with patient who agreed and also confirmed that he was full code. His IV was infiltrated and a new IV had to be established in order to push medication for procedure, however once established a 7.5 ET tube was placed at 24 using a glide scope. Good CO2 color change and bilateral breath sounds. Patient was then prepared for left central venous catheter in the internal jugular vein, all 3 ports flushed well and was sutured and dressed appropriately. Full code. POA: Yenni his . Patient has close follow-up with: PCP, emblem fuser tender, neurologist, and do all operator. Past Med Surg Social Fam HX - Past Medical History Medical history: arthritis, asthma, COPD, DVT, diabetes, GERD, hyperlipidemia, hypertension, kidney stones, osteoporosis (Left hip avascular necrosis.), RA, renal disease, SVT, other (Psoriasis. Alcohol dependency. Anemia. Nicotine dependency.) Psychiatric history: no psych history, other - Past Surgical History Surgical History: hip replacement, ureteral stent, vascular surgery (Right lower extremity venous thrombectomy s/p DVT), other (Penile implant 2. Colonoscopy.) - Social History Smoking Status: Current every day smoker Smokeless Tobacco Status: No Alcohol use: occasionally, heavy (Drinks as much as 6-12 beers per day. Rarely less than 2-3 beers per day.) Drug use: none - Family History Father Living Status: Medications and Allergies Warfarin [Coumadin] 5 mg PO Q48H 06/24/16 [History] Atorvastatin [Lipitor] 20 mg PO HS 07/01/16 [History] Carvedilol [Coreg] 12.5 mg PO BID 07/01/16 [History] Cholecalciferol (Vitamin D3) [Vitamin D3] 5,000 unit PO DAILY 07/01/16 [History] CloNIDine HCl [Clonidine HCl] 0.3 mg PO TID 07/01/16 [History] Doxazosin [Cardura] 4 mg PO BID 07/01/16 [History] Hydroxyzine HCl 25 mg PO Q6H 07/01/16 [History] Insulin DETEMIR [Levemir Flextouch] 26 unit SQ HS 07/01/16 [History] NIFEdipine XL (24 HR) [Procardia XL] 60 mg PO BID 07/01/16 [History] Sitagliptin Phosphate [Januvia] 50 mg PO DAILY 07/01/16 [History] Furosemide [Lasix] 40 mg PO DAILY 08/02/16 [History] Warfarin [Coumadin] 2.5 mg PO Q48H 08/02/16 [History] Allergies ciprofloxacin [From Cipro] Allergy (Verified 07/01/16 13:16) See Comments doxycycline Allergy (Verified 07/01/16 13:16) Redness of Skin Erythromycin Base Allergy (Verified 07/01/16 13:16) Rash guanfacine Allergy (Verified 07/01/16 13:16) See Comments ofloxacin Allergy (Verified 07/01/16 13:16) Hives Penicillins [PCN] Allergy (Verified 07/01/16 13:16) See Comments Procaine Allergy (Verified 07/01/16 13:16) See Comments sulfamethoxazole Allergy (Verified 07/01/16 13:16) See Comments Tocainide [From Tonocard] Allergy (Verified 07/01/16 13:16) See Comments ROS unobtainable: due to endotracheal tube All Systems: A 10-system review of systems was performed and is negative for pertinent findings except as documented above in the HPI. Physical Examination Vital Signs: Vital Signs, Last 4 Hours Temp Pulse Resp BP Pulse Ox 08/04/16 08:41 39 97 08/04/16 07:40 97.8 F 63 39 136/74 93 L General appearance: appears uncomfortable, other (Significant respiratory distress) Eyes: nonicteric, injected ENT: oropharynx dry Mallampati (class): 2 Neck: supple, no lymphadenopathy Effort: very labored Inspection: normal Auscultation: bilateral: wheezes, rales Percussion: bilateral: dull Cardiovascular: regular rate and rhythm Gastrointestinal: normoactive bowel sounds, soft, non-tender Integumentary: other (Diffuse excoriations entire body patient states that he has intense pruritus and is always itching.) Extremities: no edema, pink and warm, pulses normal non-focal exam, pupils equal and round, CN II-XII normal mood appropriate, affect normal Results - Laboratory Findings CBC and BMP: 08/04/16 04:16 08/04/16 04:16 ABG ABG pH 7.42 pH Units (7.32-7.45) 08/04/16 05:20 ABG pCO2 29 mmHg (35-45) L 08/04/16 05:20 ABG pO2 58 mmHg (85-104) L 08/04/16 05:20 ABG O2 Saturation 90 % (95-98) L 08/04/16 05:20 PT/INR, D-dimer PT 26.9 Seconds (9.4-12.1) H 08/04/16 04:16 Abnormal lab findings: Abnormal lab results WBC 13.9 K/mcL (4.3-11.1) H 08/04/16 04:16 RBC 3.09 M/mcL (4.19-5.50) L 08/04/16 04:16 Hgb 9.2 g/dL (12.9-16.9) L 08/04/16 04:16 Hct 28.0 % (37.5-50.1) L 08/04/16 04:16 Neutrophils # 10.4 K/mcL (1.6-8.9) H 08/04/16 04:16 Monocytes # 1.6 K/mcL (0.0-1.3) H 08/04/16 04:16 PT 26.9 Seconds (9.4-12.1) H 08/04/16 04:16 APTT 43.8 Seconds (26.0-36.0) H 08/01/16 14:16 ABG pCO2 29 mmHg (35-45) L 08/04/16 05:20 ABG pO2 58 mmHg (85-104) L 08/04/16 05:20 ABG HCO3 18.8 mEQ/L (21-27) L 08/04/16 05:20 ABG Total CO2 19.7 mEq/L (20-26) L 08/04/16 05:20 ABG O2 Saturation 90 % (95-98) L 08/04/16 05:20 ABG Base Excess -4.9 mEq/L (-2.0 to 3.0) L 08/04/16 05:20 Sodium 133 mEq/L (136-145) L 08/04/16 04:16 Potassium 4.8 mEq/L (3.5-4.5) H 08/04/16 04:16 Carbon Dioxide 17 mEq/L (19-29) L 08/04/16 04:16 BUN 35 mg/dL (8-26) H 08/04/16 04:16 Creatinine 2.30 mg/dL (0.72-1.25) H 08/04/16 04:16 Est GFR ( Amer) 34 (> 60) L 08/04/16 04:16 Est GFR (Non-Af Amer) 28 (> 60) L 08/04/16 04:16 Glucose 251 mg/dL (70-99) H 08/04/16 04:16 POC Glucose 178 (58-89) H 08/03/16 19:41 Calcium 8.2 mg/dL (8.6-10.8) L 08/04/16 04:16 Magnesium 1.1 mg/dL (1.6-2.6) L 08/03/16 03:25 Alkaline Phosphatase 178 Units/L (38-126) H 08/01/16 14:16 Albumin 2.9 g/dL (3.5-5.0) L 08/01/16 14:16 Globulin 5.3 g/dL (2.4-3.5) H 08/01/16 14:16 Albumin/Globulin Ratio 0.5 (1.1-2.2) L 08/01/16 14:16 TSH 6.026 mcIU/mL (0.350-4.840) H 08/04/16 04:16 Vancomycin Trough 20.5 mcg/mL (10-20) H* 08/04/16 04:16 - Microbiology Findings Microbiology Findings: Microbiology, Last 48 Hours 08/01/16 14:23 Blood Culture - Preliminary Peripheral Venipuncture No growth. 08/01/16 14:16 Blood Culture - Preliminary Peripheral Venipuncture No growth. 08/02/16 18:09 Sputum Culture - Preliminary Sputum - Clinical Findings Intake & Output: Intake & Output 08/03/16 08/04/16 08/04/16 23:59 07:59 15:59 Intake Total 320 / 320 1100 / 1100 Output Total 0 / 0 150 / 150 Balance 320 / 320 950 / 950 Weight 75.6 kg Pulmonary Procedures - Central Line Placement Left IJ Consent obtained: verbal consent Time out performed: Yes Patient placed on monitor/pulse ox: Yes prep: mask, gown, gloves Central line prep: Povidone-Iodine 1%, Chlorhexidine scrub, sterile drapes applied Local anesthesia used: Lidocaine 1% Amount of anesthesia used (mls): 1.5 Ultrasound used for placement: Yes Central line lumen inserted: triple Post procedure: sutured in place, good blood return, all ports aspirated, flushed, capped, sterile dressing applied Post procedure x-ray: tip of catheter in good position Patient tolerated procedure: well, no complications Complications: none - Intubation Time out performed: Yes Sedative: Versed Consult Discharge Plan - Plan Referrals: Silas Shah MD [Primary Care Provider] - <Alfonso Olmos - Last Filed: 08/04/16 13:59> Date of Encounter: 08/04/16 All Systems: A 10-system review of systems was performed and is negative for pertinent findings except as documented above in the HPI. Physical Examination Vital Signs: Vital Signs, Last 4 Hours Temp Pulse Resp BP Pulse Ox 08/04/16 13:00 52 22 111/63 100 08/04/16 12:00 60 20 117/67 100 08/04/16 11:59 21 117/67 100 08/04/16 11:00 97.8 F 60 24 128/74 100 08/04/16 10:23 12 152/88 90 L Ventilator Settings Ventilator Settings: Ventilator Settings, Last 8 Hours Ventilator Mode A/C Ventilator Mode A/C Ventilator Mode A/C Ventilator Mode A/C Ventilator Mode A/C Ventilator Tidal Volume 400 Setting Ventilator Tidal Volume 400 Setting Ventilator Tidal Volume 400 Setting Ventilator Tidal Volume 400 Setting Ventilator Tidal Volume 500 Setting Ventilator Respiratory Rate 20 Setting Ventilator Respiratory Rate 20 Setting Ventilator Respiratory Rate 20 Setting Ventilator Respiratory Rate 20 Setting Ventilator Respiratory Rate 12 Setting Actual Respiratory Rate 22 Actual Respiratory Rate 20 Actual Respiratory Rate 24 Actual Respiratory Rate 24 Actual Respiratory Rate 12 Positive End Expiratory 10 Pressure Positive End Expiratory 10 Pressure Positive End Expiratory 10 Pressure Positive End Expiratory 10 Pressure Positive End Expiratory 5 Pressure Peak Inspiratory Airway 30 Pressure Peak Inspiratory Airway 30 Pressure Peak Inspiratory Airway 34 Pressure Peak Inspiratory Airway 33 Pressure Peak Inspiratory Airway 31 Pressure Results - Laboratory Findings CBC and BMP: 08/04/16 04:16 08/04/16 04:16 ABG ABG pH 7.42 pH Units (7.32-7.45) 08/04/16 05:20 ABG pCO2 29 mmHg (35-45) L 08/04/16 05:20 ABG pO2 58 mmHg (85-104) L 08/04/16 05:20 ABG O2 Saturation 90 % (95-98) L 08/04/16 05:20 PT/INR, D-dimer PT 26.9 Seconds (9.4-12.1) H 08/04/16 04:16 Abnormal lab findings: Abnormal lab results WBC 13.9 K/mcL (4.3-11.1) H 08/04/16 04:16 RBC 3.09 M/mcL (4.19-5.50) L 08/04/16 04:16 Hgb 9.2 g/dL (12.9-16.9) L 08/04/16 04:16 Hct 28.0 % (37.5-50.1) L 08/04/16 04:16 Neutrophils # 10.4 K/mcL (1.6-8.9) H 08/04/16 04:16 Monocytes # 1.6 K/mcL (0.0-1.3) H 08/04/16 04:16 PT 26.9 Seconds (9.4-12.1) H 08/04/16 04:16 APTT 43.8 Seconds (26.0-36.0) H 08/01/16 14:16 ABG pCO2 29 mmHg (35-45) L 08/04/16 05:20 ABG pO2 58 mmHg (85-104) L 08/04/16 05:20 ABG HCO3 18.8 mEQ/L (21-27) L 08/04/16 05:20 ABG Total CO2 19.7 mEq/L (20-26) L 08/04/16 05:20 ABG O2 Saturation 90 % (95-98) L 08/04/16 05:20 ABG Base Excess -4.9 mEq/L (-2.0 to 3.0) L 08/04/16 05:20 Sodium 133 mEq/L (136-145) L 08/04/16 04:16 Potassium 4.8 mEq/L (3.5-4.5) H 08/04/16 04:16 Carbon Dioxide 17 mEq/L (19-29) L 08/04/16 04:16 BUN 35 mg/dL (8-26) H 08/04/16 04:16 Creatinine 2.30 mg/dL (0.72-1.25) H 08/04/16 04:16 Est GFR ( Amer) 34 (> 60) L 08/04/16 04:16 Est GFR (Non-Af Amer) 28 (> 60) L 08/04/16 04:16 Glucose 251 mg/dL (70-99) H 08/04/16 04:16 POC Glucose 229 (58-89) H 08/04/16 09:37 Calcium 8.2 mg/dL (8.6-10.8) L 08/04/16 04:16 Magnesium 1.1 mg/dL (1.6-2.6) L 08/03/16 03:25 Alkaline Phosphatase 178 Units/L (38-126) H 08/01/16 14:16 Albumin 2.9 g/dL (3.5-5.0) L 08/01/16 14:16 Globulin 5.3 g/dL (2.4-3.5) H 08/01/16 14:16 Albumin/Globulin Ratio 0.5 (1.1-2.2) L 08/01/16 14:16 TSH 6.026 mcIU/mL (0.350-4.840) H 08/04/16 04:16 Vancomycin Trough 20.5 mcg/mL (10-20) H* 08/04/16 04:16 - Microbiology Findings Microbiology Findings: Microbiology, Last 48 Hours 08/04/16 12:10 Streptococcus pneumoniae Antigen (M - Final Urine,Catheterized 08/04/16 12:10 Legionella Antigen - Final Urine,[place] 08/01/16 14:23 Blood Culture - Preliminary Peripheral Venipuncture No growth. 08/01/16 14:16 Blood Culture - Preliminary Peripheral Venipuncture No growth. 08/02/16 18:09 Sputum Culture - Preliminary Sputum - Clinical Findings Intake & Output: Intake & Output 08/03/16 08/04/16 08/04/16 23:59 07:59 15:59 Intake Total 320 / 320 1100 / 1100 Output Total 0 / 0 150 / 150 450 / 450 Balance 320 / 320 950 / 950 -450 / -450 Weight 75.6 kg
--- NOTE | 2016-08-04 11:15 | Electrocardiograph Report ---
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
[2016-08-04] MEDS ORDERED: *HR* Dextrose 50 % in Water (Syg) 50 ML SYRINGE IVP PRN (11:49)
[2016-08-04] MEDS ORDERED: Albuterol 2.5 MG/3 ML NEBULIZER IH PRN (11:49)
[2016-08-04] MEDS ORDERED: Dextrose Gel 15 GM PO PRN ×2 (11:49)
[2016-08-04] MEDS ORDERED: D5% in Water 1,000 ML IV PRN (11:49)
[2016-08-04] MEDS ORDERED: D5% in 0.9% NACL 1,000 ML IVC SCH (11:49)
[2016-08-04] MEDS ORDERED: Warfarin perPT PO PRN (11:49)
[2016-08-04] MEDS ORDERED: Benzocaine 20% 9 GM GEL..GRAM. TP PRN (11:49)
[2016-08-04] MEDS ORDERED: *HR* LORazepam 2 MG/ML VIAL IVP PRN (11:49)
--- NOTE | 2016-08-04 13:59 | Event Note ---
Date of Encounter: 08/04/16 Time of Encounter: 13:51 Patient examined, chart and all data reviewed as well as current and recent chest imaging studies. Reportedly, this patient may have had a pneumonia within the last week and developed progressive hypoxic respiratory failure necessitating noninvasive ventilatory support. Given the near nearly continuous requirement of noninvasive ventilatory support since his admission to [facility] on 2116, and given the patient's increased work of breathing and fatigue as well as altered mental status, the patient was transferred on noninvasive ventilatory support to the intensive care unit. As outlined by Dr. Berger, the patient does fulfill clinical criteria for ARDS. He subsequently underwent intubation and placement of the central venous catheter (given limited access) by Dr Berger under my direct supervision (no untoward events) and will receive ventilation via low tidal volume lung protecctive strategy as outlined in the ARDS network trial. I agree with Dr. Berger's comments regarding conservative fluid management, intermittent use of diuretic therapy use of sedation and possible need for neuromuscular blockade and administration of broad-spectrum antimicrobial agents pending results of cultures. Given the patient's comorbidities and severity of ARDS (moderate severity based upon PaO2 FiO2 ratio), patient's mortality approximate 50% which I reviewed with the spouse. Focused ultrasound evaluation of the chest revealed small bilateral pleural effusions, interstitial edema pattern and preserved left and right heart function. The patient will be maintained with DVT ulcer prophylaxis and enteral feeds can be initiated within the next 24 hours trophic doses.
[2016-08-04] MEDS: FentaNYL (PF) 1,000 MCG in 0.9 % Sodium Chloride 80 ML IVC SCH (14:49)
[2016-08-04 15:41] LABS: ABG Base Excess -3.5 mEq/L (-2.0 to 3.0); ABG HCO3 21.4 mEQ/L (21-27); ABG Oxygen Saturation 88 % (95-98); ABG PCO2 37 mmHg (35-45); ABG PH 7.37 pH Units (7.32-7.45); ABG PO2 57 mmHg (85-104); ABG TCO2 22.5 mEq/L (20-26); Blood Gas FiO2 50 %
[2016-08-04] MEDS ORDERED: MetroNIDAZOLE 500 MG/100 ML 500 MG/100 ML BAG IVPB SCH (16:00)
[2016-08-04] MEDS: Pantoprazole 40 MG VIAL IVP SCH (16:11)
[2016-08-04] MEDS: Chlorhexidine Rinse 15 ML MOUTHWASH MM SCH ×2 (16:11→21:15)
[2016-08-04] MEDS: Aztreonam 1,000 MG in D5% in Water (Mini-Bag+) 100 ML IVPB SCH (16:11)
[2016-08-04] MEDS ORDERED: Insulin LISPRO 300 UNITS/3 ML VIAL SQ SCH (21:00)
[2016-08-04] MEDS ORDERED: NIFEdipine XL (24 HR) 60 MG TAB.ER.24 PO SCH (21:00)
[2016-08-04] MEDS: Aztreonam 2,000 MG in D5% in Water (Mini-Bag+) 100 ML IVPB SCH (21:08)
[2016-08-04] MEDS: 0.9 % Sodium Chloride 1,000 ML IVC SCH (21:09)
[2016-08-04] MEDS: Insulin DETEMIR 100 UNIT/ML X5UNITS SQ SCH (21:31)
[2016-08-05] MEDS: Ipratropium/Albuterol Neb 3 ML IH SCH ×6 (00:23→20:08)
[2016-08-05] MEDS: Aztreonam 1,000 MG in D5% in Water (Mini-Bag+) 100 ML IVPB SCH ×2 (00:35→08:15)
[2016-08-05] MEDS: Insulin LISPRO 300 UNITS/3 ML VIAL SQ SCH ×5 (00:35→17:33)
[2016-08-05] MEDS: FentaNYL (PF) 1,000 MCG in 0.9 % Sodium Chloride 80 ML IVC SCH ×2 (03:19→20:14)
[2016-08-05 04:08] LABS: Basophils # 0.1 K/mcL (0.0-0.2); Basophils % 0.5 %; Eosinophils # 0.8 K/mcL (0.0-0.6); Hematocrit 27.2 % (37.5-50.1); Hemoglobin 8.9 g/dL (12.9-16.9); Immature Granulocytes % 0.9 % (0-4); Lymphocytes # 1.7 K/mcL (0.6-4.6); Mean Corpuscular HGB Conc 32.7 g/dL (31.6-35.5); Mean Corpuscular Hemoglobin 29.6 pg (28.0-33.3); Mean Corpuscular Volume 90.4 fL (83.0-100.0); Mean Platelet Volume 10.3 fL (9.4-12.4); Monocytes # 1.2 K/mcL (0.0-1.3); Monocytes % 10.4 %; Neutrophils # 7.4 K/mcL (1.6-8.9); Platelet Count 297 K/mcL (140-400); Red Blood Count 3.01 M/mcL (4.19-5.50); Red Cell Distribution Width 13.1 % (11.5-14.5); Segmented Neutrophils % 66.2 %
[2016-08-05 04:15] LABS: Calcium 8.5 mg/dL (8.6-10.8); Potassium 4.2 mEq/L (3.5-4.5)
[2016-08-05 04:17] LABS: Activated Partial Thrombo Time 42.2 Seconds (26.0-36.0)
[2016-08-05 04:37] LABS: INR 3.9
[2016-08-05 04:38] LABS: Prothrombin Time 44.3 Seconds (9.4-12.1)
[2016-08-05 06:00] LABS: ABG Oxygen Saturation 82 % (95-98); ABG PCO2 38 mmHg (35-45); ABG PH 7.37 pH Units (7.32-7.45); ABG TCO2 23.2 mEq/L (20-26)
[2016-08-05 06:01] LABS: Blood Gas FiO2 40 %
[2016-08-05 06:02] LABS: ABG PO2 48 mmHg (85-104)
[2016-08-05] MEDS: Chlorhexidine Rinse 15 ML MOUTHWASH MM SCH ×2 (08:15→20:35)
[2016-08-05] MEDS ORDERED: Levofloxacin 750 MG/150 ML 750 MG/150 ML BAG IVPB SCH ×2 (09:00)
--- NOTE | 2016-08-05 09:10 | Pulmonology Progress Note ---
Date of Encounter: 08/05/16 Time of Encounter: 09:10 Assessment and Plan (1) ARDS (adult respiratory distress syndrome) Current Visit: Yes Status: Acute Patient presented to the ICU in respiratory distress with tachypnea, tachycardia , diaphoresis and use of accessory muscles of respiration as well as a cough. Arterial blood gases revealed hypoxemia. Patient meets criteria for ARDS: Respiratory symptoms have begun within a week and the patient's clinical symptoms have progressively worsened as patient initially had dyspnea and hypoxemia progressing to acute respiratory failure. However, given symptoms may be due to pneumonia, sepsis, aspiration as patient has not had known trauma. Most likely etiology may be pneumonia. Differential does include acute hypoxemic respiratory failure with bilateral alveolar infiltrates. [place] criteria: -patient has bilateral opacities on chest x-ray which are not fully explained by cardiac failure or fluid overload, pleural effusion, lobar collapse, lung collapse or pulmonary nodule; a PaO2/FiO2 ratio of less than 300 patient was initially at 58/.45 = 128.8 ; on PEEP greater than 5 cm of water patient is currently at a PEEP of 10. Currently stratified as moderate ARDS. Chest x-ray today demonstrated improving airspace disease anticipate 2-3 more days on ventilator support. Patient's risk factor for ARDS was recent pneumonia which puts him at significant risk for a pulmonary source of sepsis. Supportive care: -Fluid balance should be maintained at neutral or negative balance. Will hold supplemental fluids for conservative management of fluids evidence is based on the FACTT trial. 20 mg IVP Lasix today and re evaluate; may require another dose. -Maintain CVP of less than 4. -Maintain arterial pressure greater than 60. 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 Will Re evaluate INR Tomorrow. May consider Heparin Drip. -stress ulcer prophylaxis If patient receives low tidal volume and has a pH of less than 7.15 despite our increase in ventilatory rate - we may consider a bicarbonate infusion. Steroids may be considered as this episode is less than 1 week as of today. Antibiotic therapy: Stop vancomycin Results: NEGATIVE: blood culture, sputum culture, urine antigens for Legionella and streptococcal. Respiratory panel pending. Optimizing ventilation for better outcome: Continue sedation to reduce patient ventilator dyssynchrony. No specific guideline for ARDS however if the patient is difficult to oxygenate heavy sedation may be required 4-5 on the Leija agitation sedation scale. Continue paralytic either intermittent doses or continuous IV infusion with monitoring if oxygenation cannot be achieved despite low tidal volume ventilation and adequate sedation or continued evidence of ventilator patient dyssynchrony. Subjective Principal diagnosis: ARDS Interval history: Patient responding to commands appropriately. Appears very comfortable. No events overnight. Objective PUL Vital signs: Last Vital Signs Temp 96.9 F L 08/05/16 07:57 Pulse 68 08/05/16 08:15 Resp 20 08/05/16 08:15 BP 117/60 08/05/16 08:15 Pulse Ox 98 08/05/16 08:15 General appearance: no acute distress, alert Eyes: nonicteric ENT: oropharynx moist Mallampati (class): 2 Neck: supple, no lymphadenopathy Effort: normal Auscultation: bilateral: diminished breath sounds Cardiovascular: irregular rhythm Gastrointestinal: normoactive bowel sounds, soft, non-tender, non-distended Integumentary: normal Extremities: no cyanosis, pink and warm, pulses normal Musculoskeletal: no deformities non-focal exam, pupils equal and round Ventilator Settings Ventilator Settings: Ventilator Settings, Last 8 Hours Ventilator Mode A/C Ventilator Mode A/C Ventilator Mode A/C Ventilator Mode A/C Ventilator Mode A/C Ventilator Mode A/C Ventilator Mode A/C Ventilator Mode A/C Ventilator Tidal Volume 400 Setting Ventilator Tidal Volume 400 Setting Ventilator Tidal Volume 400 Setting Ventilator Tidal Volume 400 Setting Ventilator Tidal Volume 400 Setting Ventilator Tidal Volume 400 Setting Ventilator Tidal Volume 400 Setting Ventilator Tidal Volume 400 Setting Ventilator Respiratory Rate 20 Setting Ventilator Respiratory Rate 20 Setting Ventilator Respiratory Rate 20 Setting Ventilator Respiratory Rate 20 Setting Ventilator Respiratory Rate 20 Setting Ventilator Respiratory Rate 20 Setting Ventilator Respiratory Rate 20 Setting Ventilator Respiratory Rate 20 Setting Actual Respiratory Rate 20 Actual Respiratory Rate 20 Actual Respiratory Rate 20 Actual Respiratory Rate 20 Actual Respiratory Rate 20 Actual Respiratory Rate 20 Actual Respiratory Rate 20 Positive End Expiratory 10 Pressure Positive End Expiratory 10 Pressure Positive End Expiratory 10 Pressure Positive End Expiratory 10 Pressure Positive End Expiratory 10 Pressure Positive End Expiratory 10 Pressure Positive End Expiratory 10 Pressure Positive End Expiratory 10 Pressure Peak Inspiratory Airway 26 Pressure Peak Inspiratory Airway 27 Pressure Peak Inspiratory Airway 39 Pressure Peak Inspiratory Airway 27 Pressure Peak Inspiratory Airway 27 Pressure Peak Inspiratory Airway 27 Pressure Peak Inspiratory Airway 29 Pressure Results - Laboratory Findings CBC and BMP: 08/05/16 03:35 08/05/16 03:35 ABG ABG pH 7.37 pH Units (7.32-7.45) 08/05/16 05:52 ABG pCO2 38 mmHg (35-45) 08/05/16 05:52 ABG pO2 48 mmHg (85-104) L* 08/05/16 05:52 ABG O2 Saturation 82 % (95-98) L 08/05/16 05:52 PT/INR, D-dimer PT 44.3 Seconds (9.4-12.1) H* D 08/05/16 03:35 Abnormal lab findings: Abnormal lab results WBC 11.2 K/mcL (4.3-11.1) H 08/05/16 03:35 RBC 3.01 M/mcL (4.19-5.50) L 08/05/16 03:35 Hgb 8.9 g/dL (12.9-16.9) L 08/05/16 03:35 Hct 27.2 % (37.5-50.1) L 08/05/16 03:35 Eosinophils # 0.8 K/mcL (0.0-0.6) H 08/05/16 03:35 PT 44.3 Seconds (9.4-12.1) H* D 08/05/16 03:35 APTT 42.2 Seconds (26.0-36.0) H 08/05/16 03:35 ABG pO2 48 mmHg (85-104) L* 08/05/16 05:52 ABG O2 Saturation 82 % (95-98) L 08/05/16 05:52 ABG Base Excess -3.0 mEq/L (-2.0 to 3.0) L 08/05/16 05:52 BUN 35 mg/dL (8-26) H 08/05/16 03:35 Creatinine 1.85 mg/dL (0.72-1.25) H 08/05/16 03:35 Est GFR ( Amer) 43 (> 60) L 08/05/16 03:35 Est GFR (Non-Af Amer) 36 (> 60) L 08/05/16 03:35 Calcium 8.5 mg/dL (8.6-10.8) L 08/05/16 03:35 Magnesium 1.1 mg/dL (1.6-2.6) L 08/03/16 03:25 Alkaline Phosphatase 178 Units/L (38-126) H 08/01/16 14:16 Albumin 2.9 g/dL (3.5-5.0) L 08/01/16 14:16 Globulin 5.3 g/dL (2.4-3.5) H 08/01/16 14:16 Albumin/Globulin Ratio 0.5 (1.1-2.2) L 08/01/16 14:16 TSH 6.026 mcIU/mL (0.350-4.840) H 08/04/16 04:16 Vancomycin Trough 20.5 mcg/mL (10-20) H* 08/04/16 04:16 - Microbiology Findings Microbiology Findings: Microbiology, Last 48 Hours 08/02/16 18:09 Sputum Culture - Final Sputum 08/04/16 12:10 Streptococcus pneumoniae Antigen (M - Final Urine,Catheterized 08/04/16 12:10 Legionella Antigen - Final Urine,[place] 08/01/16 14:23 Blood Culture - Preliminary Peripheral Venipuncture No growth. 08/01/16 14:16 Blood Culture - Preliminary Peripheral Venipuncture No growth. - Clinical Findings Intake & Output: Intake & Output 08/04/16 08/05/16 08/05/16 23:59 07:59 15:59 Intake Total 160 / 160 240 / 240 100 / 100 Output Total 160 / 160 425 / 425 Balance 0 / 0 -185 / -185 100 / 100 Weight 73.981 kg Consult Discharge Plan - Plan Referrals: Silas Shah MD [Primary Care Provider] -
[2016-08-05] MEDS ORDERED: Vancomycin 1,000 MG in D5% in Water 250 ML IVPB ONE (10:00)
[2016-08-05] MEDS ORDERED: Furosemide 20 MG/2 ML VIAL IVP ONE (11:35)
[2016-08-05] MEDS: cloNIDine HCl 0.1 MG TABLET PO SCH (11:52)
[2016-08-05] MEDS: Pantoprazole 40 MG VIAL IVP SCH (11:57)
[2016-08-05] MEDS: Magnesium Oxide 400 MG TABLET PO SCH (11:57)
[2016-08-05] MEDS: Simethicone 80 MG TAB.CHEW PO SCH ×3 (11:57→20:35)
[2016-08-05] MEDS: Cholecalciferol (D-3) 1,000 UNIT TABLET PO SCH (11:57)
--- NOTE | 2016-08-05 12:00 | Event Note ---
Date of Encounter: 08/05/16 Time of Encounter: 11:56 The patient was examined, the chart and all data reviewed as well as the current chest imaging studies. The patient remains comfortable with intravenous sedation and on full ventilatory support. There has been a significant reduction in the FiO2 requirement through the night and currently on 40% FiO2 and 10 of PEEP saturation values via pulse oximetry approximate 95- 96%. The plateau pressures are acceptable with current ventilator settings targeting protective lung strategy management. All cultures are negative to date and therefore all antimicrobials will be discontinued. Patient utilizes anticoagulation, therapy for chronic DVT currently is therapeutic with Coumadin (the doses been held for the last couple days given therapeutic INR). Given disparity and fluid balance, diuretic therapy will be initiated. Feedings have been ordered as well. I anticipate another 24-48 hours of need for ventilation and dependent upon the patient's clinical status breathing trials will be undertaken in that timeframe. Her graft the fall of hemoglobin is likely delusional, there is no evidence to suggest active bleeding. The patient suffers from life-threatening critical illness due to ARDS, necessitating need for invasive ventilatory support. 35 minutes of critical care time was required during today's evaluation. Nickolas
[2016-08-05] MEDS: Docusate Oral Soln 100 MG/10 ML UDC PO SCH ×2 (12:04→20:35)
[2016-08-05] MEDS: Insulin DETEMIR 100 UNIT/ML X5UNITS SQ SCH (20:38)
[2016-08-06] MEDS: Ipratropium/Albuterol Neb 3 ML IH SCH ×7 (00:12→23:43)
[2016-08-06] MEDS: Insulin LISPRO 300 UNITS/3 ML VIAL SQ SCH ×5 (00:33→23:32)
[2016-08-06 05:29] LABS: ABG Base Excess -4.8 mEq/L (-2.0 to 3.0); ABG HCO3 20.4 mEQ/L (21-27); ABG Oxygen Saturation 93 % (95-98); ABG PCO2 37 mmHg (35-45); ABG PH 7.35 pH Units (7.32-7.45); ABG PO2 71 mmHg (85-104); ABG TCO2 21.5 mEq/L (20-26)
[2016-08-06 05:31] LABS: Blood Gas FiO2 40 %
[2016-08-06 05:56] LABS: Basophils # 0.1 K/mcL (0.0-0.2); Basophils % 0.4 %; Eosinophils # 0.6 K/mcL (0.0-0.6); Eosinophils % 4.8 %; Hematocrit 26.7 % (37.5-50.1); Hemoglobin 8.8 g/dL (12.9-16.9); Immature Granulocytes % 0.6 % (0-4); Lymphocytes % 7.8 %; Mean Corpuscular Hemoglobin 29.4 pg (28.0-33.3); Mean Corpuscular Volume 89.3 fL (83.0-100.0); Mean Platelet Volume 9.8 fL (9.4-12.4); Monocytes # 1.2 K/mcL (0.0-1.3); Monocytes % 9.3 %; Neutrophils # 10.1 K/mcL (1.6-8.9); Platelet Count 295 K/mcL (140-400); Red Blood Count 2.99 M/mcL (4.19-5.50); Red Cell Distribution Width 13.2 % (11.5-14.5); Segmented Neutrophils % 77.1 %
[2016-08-06 06:05] LABS: INR 4.6; Prothrombin Time 51.6 Seconds (9.4-12.1)
[2016-08-06 06:06] LABS: Calcium 8.5 mg/dL (8.6-10.8); Potassium 3.9 mEq/L (3.5-4.5)
--- NOTE | 2016-08-06 07:38 | Pulmonology Progress Note ---
Date of Encounter: 08/06/16 Time of Encounter: 07:36 Assessment and Plan (1) ARDS (adult respiratory distress syndrome) Current Visit: Yes Status: Acute Patient presented to the ICU in respiratory distress with tachypnea, tachycardia , diaphoresis and use of accessory muscles of respiration as well as a cough. Arterial blood gases revealed hypoxemia. Patient meets criteria for ARDS: Respiratory symptoms have begun within a week and the patient's clinical symptoms have progressively worsened as patient initially had dyspnea and hypoxemia progressing to acute respiratory failure. However, given symptoms may be due to pneumonia, sepsis, aspiration as patient has not had known trauma. Most likely etiology may be pneumonia. Differential does include acute hypoxemic respiratory failure with bilateral alveolar infiltrates. [place] criteria: -patient has bilateral opacities on chest x-ray which are not fully explained by cardiac failure or fluid overload, pleural effusion, lobar collapse, lung collapse or pulmonary nodule; a PaO2/FiO2 ratio of less than 300 patient was initially at 58/.45 = 128.8 ; on PEEP greater than 5 cm of water patient was initially at a PEEP of 10. Stratified as moderate ARDS. Patient with low FiO2 requirement 40% PEEP changed to 8. Plan breathing trial and possible extubation today. Chest x-ray today demonstrated: Improving bilateral lung opacities. Patient's risk factor for ARDS was recent pneumonia which puts him at significant risk for a pulmonary source of sepsis. Supportive care: -Fluid balance should be maintained at neutral or negative balance. Will hold supplemental fluids for conservative management of fluids evidence is based on the FACTT trial. Fluid balance today remains slightly positive at 1.5 L overall since admission. 20 mg grams IV push Lasix established mild diuresis yesterday. 20 mg IVP Lasix today and re evaluate; may require another dose. -Maintain CVP of less than 4. -Maintain arterial pressure greater than 60. 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 As warfarin has been on hold, this is likely due to a combination of nutritional factors and poor liver function. Will Re evaluate INR Tomorrow. May consider Heparin Drip. -stress ulcer prophylaxis If patient receives low tidal volume and has a pH of less than 7.15 despite our increase in ventilatory rate - we may consider a bicarbonate infusion. Steroids may be considered as this episode is less than 1 week as of today. Antibiotic therapy: Discontinued due to results below that do not support pneumonia. Results: NEGATIVE: blood culture, sputum culture, urine antigens for Legionella and streptococcal. Optimizing ventilation for better outcome: Continue sedation to reduce patient ventilator dyssynchrony. No specific guideline for ARDS however if the patient is difficult to oxygenate heavy sedation may be required 4-5 on the Leija agitation sedation scale. Continue paralytic either intermittent doses or continuous IV infusion with monitoring if oxygenation cannot be achieved despite low tidal volume ventilation and adequate sedation or continued evidence of ventilator patient dyssynchrony. Patient demonstrated intermittent bradycardia and hypotension. Discontinued coreg and clonidine Subjective Principal diagnosis: ARDS Interval history: Patient mildly sedated resting comfortably and responding to commands appropriately. Intermittent episodes of hypotension and bradycardia overnight clonidine and Coreg were held. Vitals stable. Patient requiring low FiO2 of 40 will try breathing trial and possible extubation today. Objective PUL Vital signs: Last Vital Signs Temp 97.9 F 08/06/16 05:03 Pulse 71 08/06/16 06:00 Resp 20 08/06/16 06:12 BP 146/75 08/06/16 06:12 Pulse Ox 98 08/06/16 06:12 General appearance: no acute distress, appears uncomfortable Eyes: nonicteric ENT: oropharynx moist Mallampati (class): 2 Neck: supple Effort: normal Auscultation: bilateral: diminished breath sounds Cardiovascular: regular rate and rhythm Gastrointestinal: normoactive bowel sounds, soft, non-tender, non-distended Integumentary: normal Extremities: no cyanosis Musculoskeletal: no deformities pupils equal and round Ventilator Settings Ventilator Settings: Ventilator Settings, Last 8 Hours Ventilator Mode A/C Ventilator Mode A/C Ventilator Mode A/C Ventilator Mode A/C Ventilator Mode A/C Ventilator Mode A/C Ventilator Mode A/C Ventilator Mode A/C Ventilator Mode A/C Ventilator Mode A/C Ventilator Mode A/C Ventilator Mode A/C Ventilator Tidal Volume 400 Setting Ventilator Tidal Volume 400 Setting Ventilator Tidal Volume 400 Setting Ventilator Tidal Volume 400 Setting Ventilator Tidal Volume 400 Setting Ventilator Tidal Volume 400 Setting Ventilator Tidal Volume 400 Setting Ventilator Tidal Volume 400 Setting Ventilator Tidal Volume 400 Setting Ventilator Tidal Volume 400 Setting Ventilator Tidal Volume 400 Setting Ventilator Tidal Volume 400 Setting Ventilator Respiratory Rate 20 Setting Ventilator Respiratory Rate 20 Setting Ventilator Respiratory Rate 20 Setting Ventilator Respiratory Rate 20 Setting Ventilator Respiratory Rate 20 Setting Ventilator Respiratory Rate 20 Setting Ventilator Respiratory Rate 20 Setting Ventilator Respiratory Rate 20 Setting Ventilator Respiratory Rate 20 Setting Ventilator Respiratory Rate 20 Setting Ventilator Respiratory Rate 20 Setting Ventilator Respiratory Rate 20 Setting Actual Respiratory Rate 24 Actual Respiratory Rate 22 Actual Respiratory Rate 22 Actual Respiratory Rate 26 Actual Respiratory Rate 20 Actual Respiratory Rate 22 Actual Respiratory Rate 21 Actual Respiratory Rate 21 Actual Respiratory Rate 20 Actual Respiratory Rate 21 Actual Respiratory Rate 24 Positive End Expiratory 10 Pressure Positive End Expiratory 10 Pressure Positive End Expiratory 10 Pressure Positive End Expiratory 10 Pressure Positive End Expiratory 10 Pressure Positive End Expiratory 10 Pressure Positive End Expiratory 10 Pressure Positive End Expiratory 10 Pressure Positive End Expiratory 10 Pressure Positive End Expiratory 10 Pressure Positive End Expiratory 10 Pressure Positive End Expiratory 10 Pressure Peak Inspiratory Airway 23 Pressure Peak Inspiratory Airway 26 Pressure Peak Inspiratory Airway 26 Pressure Peak Inspiratory Airway 23 Pressure Peak Inspiratory Airway 30 Pressure Peak Inspiratory Airway 24 Pressure Peak Inspiratory Airway 28 Pressure Peak Inspiratory Airway 27 Pressure Peak Inspiratory Airway 27 Pressure Peak Inspiratory Airway 26 Pressure Peak Inspiratory Airway 24 Pressure Results - Laboratory Findings CBC and BMP: 08/06/16 05:45 08/06/16 05:45 ABG ABG pH 7.35 pH Units (7.32-7.45) 08/06/16 05:23 ABG pCO2 37 mmHg (35-45) 08/06/16 05:23 ABG pO2 71 mmHg (85-104) L 08/06/16 05:23 ABG O2 Saturation 93 % (95-98) L 08/06/16 05:23 PT/INR, D-dimer PT 51.6 Seconds (9.4-12.1) H* 08/06/16 05:45 Abnormal lab findings: Abnormal lab results WBC 13.1 K/mcL (4.3-11.1) H 08/06/16 05:45 RBC 2.99 M/mcL (4.19-5.50) L 08/06/16 05:45 Hgb 8.8 g/dL (12.9-16.9) L 08/06/16 05:45 Hct 26.7 % (37.5-50.1) L 08/06/16 05:45 Neutrophils # 10.1 K/mcL (1.6-8.9) H 08/06/16 05:45 PT 51.6 Seconds (9.4-12.1) H* 08/06/16 05:45 INR 4.6 H* 08/06/16 05:45 APTT 42.2 Seconds (26.0-36.0) H 08/05/16 03:35 ABG pO2 71 mmHg (85-104) L 08/06/16 05:23 ABG HCO3 20.4 mEQ/L (21-27) L 08/06/16 05:23 ABG O2 Saturation 93 % (95-98) L 08/06/16 05:23 ABG Base Excess -4.8 mEq/L (-2.0 to 3.0) L 08/06/16 05:23 Chloride 110 mEq/L (98-109) H 08/06/16 05:45 Carbon Dioxide 18 mEq/L (19-29) L 08/06/16 05:45 BUN 35 mg/dL (8-26) H 08/06/16 05:45 Creatinine 1.70 mg/dL (0.72-1.25) H 08/06/16 05:45 Est GFR ( Amer) 48 (> 60) L 08/06/16 05:45 Est GFR (Non-Af Amer) 39 (> 60) L 08/06/16 05:45 Glucose 152 mg/dL (70-99) H 08/06/16 05:45 POC Glucose 150 (58-89) H 08/06/16 05:44 Calcium 8.5 mg/dL (8.6-10.8) L 08/06/16 05:45 Magnesium 1.1 mg/dL (1.6-2.6) L 08/03/16 03:25 Alkaline Phosphatase 178 Units/L (38-126) H 08/01/16 14:16 Albumin 2.9 g/dL (3.5-5.0) L 08/01/16 14:16 Globulin 5.3 g/dL (2.4-3.5) H 08/01/16 14:16 Albumin/Globulin Ratio 0.5 (1.1-2.2) L 08/01/16 14:16 TSH 6.026 mcIU/mL (0.350-4.840) H 08/04/16 04:16 Vancomycin Trough 20.5 mcg/mL (10-20) H* 08/04/16 04:16 - Microbiology Findings Microbiology Findings: Microbiology, Last 48 Hours 08/02/16 18:09 Sputum Culture - Final Sputum 08/04/16 12:10 Streptococcus pneumoniae Antigen (M - Final Urine,Catheterized 08/04/16 12:10 Legionella Antigen - Final Urine,[place] - Clinical Findings Intake & Output: Intake & Output 08/05/16 08/05/16 08/06/16 15:59 23:59 07:59 Intake Total 220 / 220 319 / 319 233 / 233 Output Total 45 / 45 1100 / 1100 475 / 475 Balance 175 / 175 -781 / -781 -242 / -242 Weight 74.2 kg Consult Discharge Plan - Plan Referrals: Silas Shah MD [Primary Care Provider] -
[2016-08-06] MEDS: Pantoprazole 40 MG VIAL IVP SCH (07:59)
[2016-08-06] MEDS: Docusate Oral Soln 100 MG/10 ML UDC PO SCH ×2 (07:59→21:08)
[2016-08-06] MEDS: Chlorhexidine Rinse 15 ML MOUTHWASH MM SCH ×2 (07:59→21:08)
[2016-08-06] MEDS: Cholecalciferol (D-3) 1,000 UNIT TABLET PO SCH (08:00)
[2016-08-06] MEDS: Simethicone 80 MG TAB.CHEW PO SCH ×3 (08:00→21:09)
[2016-08-06] MEDS: Magnesium Oxide 400 MG TABLET PO SCH (08:00)
--- NOTE | 2016-08-06 09:30 | Event Note ---
Date of Encounter: 08/06/16 Time of Encounter: 09:26 The patient was examined, the chart and all data reviewed. This morning, is comfortable on low level ventilatory support with low-level continuous sedation. A breathing trial has yet to be performed this morning. Overnight, no acute issues were reported per discussion with nursing staff and respiratory therapy staff. Mild diuresis was established yesterday and fluid balance remains slightly positive at 1.5 L since his admission. The patient is currently free of antimicrobial therapy even lack of supporting data suggesting active pneumonia. Acute respiratory failure with hypoxia in this individual is due to ARDS likely the aftermath of prior pneumonia. Given improvement of the patient's respiratory status, breathing trial will be performed today and perhaps the patient can be extubated later today. Given bradycardia and hypotension, both Coreg and Clonidine were discontinued yesterday. Continue all other supportive measures as outlined by Dr. Berger and her comprehensive clinical note which I reviewed at length. [facility] [phone]
[2016-08-06] MEDS ORDERED: Furosemide 20 MG/2 ML VIAL IVP ONE (10:24)
[2016-08-06] MEDS: FentaNYL (PF) 1,000 MCG in 0.9 % Sodium Chloride 80 ML IVC SCH (12:18)
[2016-08-06] MEDS: Insulin DETEMIR 100 UNIT/ML X5UNITS SQ SCH (23:11)
[2016-08-07] MEDS: Ipratropium/Albuterol Neb 3 ML IH SCH ×5 (04:04→20:35)
[2016-08-07 04:24] LABS: Basophils % 0.3 %; Eosinophils # 0.7 K/mcL (0.0-0.6); Eosinophils % 5.6 %; Hematocrit 26.6 % (37.5-50.1); Hemoglobin 8.9 g/dL (12.9-16.9); INR 2.6; Immature Granulocytes % 0.8 % (0-4); Lymphocytes # 0.9 K/mcL (0.6-4.6); Lymphocytes % 7.5 %; Mean Corpuscular HGB Conc 33.5 g/dL (31.6-35.5); Mean Corpuscular Hemoglobin 29.7 pg (28.0-33.3); Mean Corpuscular Volume 88.7 fL (83.0-100.0); Mean Platelet Volume 10.2 fL (9.4-12.4); Monocytes # 1.1 K/mcL (0.0-1.3); Monocytes % 9.6 %; Neutrophils # 8.8 K/mcL (1.6-8.9); Platelet Count 300 K/mcL (140-400); Prothrombin Time 29.1 Seconds (9.4-12.1); Red Cell Distribution Width 13.2 % (11.5-14.5); Segmented Neutrophils % 76.2 %
[2016-08-07 04:34] LABS: BUN/Creatinine Ratio 20 (6-26); Blood Urea Nitrogen 27 mg/dL (8-26); Calcium 8.6 mg/dL (8.6-10.8); Carbon Dioxide 21 mEq/L (19-29); Chloride 108 mEq/L (98-109); Glucose 171 mg/dL (70-99); Osmolality,Calculated 299 (280-300); Potassium 3.5 mEq/L (3.5-4.5); Sodium 140 mEq/L (136-145); eGFR For African Americans > 60 (> 60); eGFR For Non-African Americans 50 (> 60)
[2016-08-07 05:23] LABS: ABG Base Excess 0.8 mEq/L (-2.0 to 3.0); ABG HCO3 25.3 mEQ/L (21-27); ABG Oxygen Saturation 93 % (95-98); ABG PCO2 39 mmHg (35-45); ABG PH 7.42 pH Units (7.32-7.45); ABG PO2 65 mmHg (85-104); ABG TCO2 26.5 mEq/L (20-26); Blood Gas FiO2 30 %
[2016-08-07] MEDS: Insulin LISPRO 300 UNITS/3 ML VIAL SQ SCH ×4 (06:08→23:25)
--- NOTE | 2016-08-07 06:15 | Pulmonology Progress Note ---
Addendum entered and electronically signed by Bina Berger DO 08/07/16 18:07: Physical exam: General appearance: Appears uncomfortable, mild respiratory distress on 4 L of oxygen by nasal cannula. Eyes: Nonicteric, without injection. ENT: Oropharynx moist, patient has large amount of saliva and phlegm. Mallampati: class II Neck: Supple, no lymphadenopathy Effort: Mildly labored Inspection: Normal Auscultation: Bilateral: Wheezes, Rales Percussion: Bilateral: Dole Cardiovascular: Regular Rate and rhythm Gastrointestinal: Normal active bowel sounds, soft, nontender Integument: Diffuse excoriations on entire body Extremities: No edema, pink and warm, pulses normal, nonfocal exam, pupils equal and round, Original Note: <Bina Berger - Last Filed: 08/07/16 06:14> Date of Encounter: 08/07/16 Time of Encounter: 06:14 Assessment and Plan (1) ARDS (adult respiratory distress syndrome) Current Visit: Yes Status: Acute Patient presented to the ICU in respiratory distress with tachypnea, tachycardia , diaphoresis and use of accessory muscles of respiration as well as a cough. Arterial blood gases revealed hypoxemia. Patient meets criteria for ARDS: Respiratory symptoms have begun within a week and the patient's clinical symptoms have progressively worsened as patient initially had dyspnea and hypoxemia progressing to acute respiratory failure. However, given symptoms may be due to pneumonia, sepsis, aspiration as patient has not had known trauma. Most likely etiology may be pneumonia. Differential does include acute hypoxemic respiratory failure with bilateral alveolar infiltrates. [place] criteria: -patient has bilateral opacities on chest x-ray which are not fully explained by cardiac failure or fluid overload, pleural effusion, lobar collapse, lung collapse or pulmonary nodule; a PaO2/FiO2 ratio of less than 300 patient was initially at 58/.45 = 128.8 ; on PEEP greater than 5 cm of water patient was initially at a PEEP of 10. Stratified as moderate ARDS. Patient with low FiO2 requirement 40% PEEP changed to 8. Plan breathing trial and possible extubation today. Chest x-ray today demonstrated: Improving bilateral lung opacities. Patient's risk factor for ARDS was recent pneumonia which puts him at significant risk for a pulmonary source of sepsis. Supportive care: -Fluid balance should be maintained at neutral or negative balance. Will hold supplemental fluids for conservative management of fluids evidence is based on the FACTT trial. Fluid balance today remains slightly positive at 1.5 L overall since admission. 20 mg grams IV push Lasix established mild diuresis yesterday. 20 mg IVP Lasix today and re evaluate; may require another dose. -Maintain CVP of less than 4. -Maintain arterial pressure greater than 60. 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 As warfarin has been on hold, this is likely due to a combination of nutritional factors and poor liver function. Will Re evaluate INR Tomorrow. May consider Heparin Drip. -stress ulcer prophylaxis If patient receives low tidal volume and has a pH of less than 7.15 despite our increase in ventilatory rate - we may consider a bicarbonate infusion. Steroids may be considered as this episode is less than 1 week as of today. Antibiotic therapy: Discontinued due to results below that do not support pneumonia. Results: NEGATIVE: blood culture, sputum culture, urine antigens for Legionella and streptococcal. Optimizing ventilation for better outcome: Continue sedation to reduce patient ventilator dyssynchrony. No specific guideline for ARDS however if the patient is difficult to oxygenate heavy sedation may be required 4-5 on the Leiaj agitation sedation scale. Continue paralytic either intermittent doses or continuous IV infusion with monitoring if oxygenation cannot be achieved despite low tidal volume ventilation and adequate sedation or continued evidence of ventilator patient dyssynchrony. Patient demonstrated intermittent bradycardia and hypotension. Discontinued coreg and clonidine Subjective Principal diagnosis: ARDS Interval history: Patient mildly sedated resting comfortably and responding to commands appropriately. Intermittent episodes of hypotension and bradycardia overnight clonidine and Coreg were held. Vitals stable. Patient requiring low FiO2 of 40 will try breathing trial and possible extubation today. Objective PUL Vital signs: Last Vital Signs Temp 98.2 F 08/07/16 04:00 Pulse 80 08/07/16 05:00 Resp 21 08/07/16 05:00 BP 135/64 08/07/16 05:00 Pulse Ox 94 L 08/07/16 05:00 Ventilator Settings Ventilator Settings: Ventilator Settings, Last 8 Hours Ventilator Mode A/C Ventilator Mode A/C Ventilator Mode A/C Ventilator Mode A/C Ventilator Mode A/C Ventilator Mode A/C Ventilator Mode A/C Ventilator Mode A/C Ventilator Mode A/C Ventilator Tidal Volume 400 Setting Ventilator Tidal Volume 400 Setting Ventilator Tidal Volume 400 Setting Ventilator Tidal Volume 400 Setting Ventilator Tidal Volume 400 Setting Ventilator Tidal Volume 400 Setting Ventilator Tidal Volume 400 Setting Ventilator Tidal Volume 400 Setting Ventilator Tidal Volume 400 Setting Ventilator Respiratory Rate 20 Setting Ventilator Respiratory Rate 20 Setting Ventilator Respiratory Rate 20 Setting Ventilator Respiratory Rate 20 Setting Ventilator Respiratory Rate 20 Setting Ventilator Respiratory Rate 20 Setting Ventilator Respiratory Rate 20 Setting Ventilator Respiratory Rate 20 Setting Ventilator Respiratory Rate 20 Setting Actual Respiratory Rate 26 Actual Respiratory Rate 26 Positive End Expiratory 8 Pressure Positive End Expiratory 8 Pressure Positive End Expiratory 8 Pressure Positive End Expiratory 8 Pressure Positive End Expiratory 5 Pressure Positive End Expiratory 8 Pressure Positive End Expiratory 8 Pressure Positive End Expiratory 8 Pressure Positive End Expiratory 8 Pressure Peak Inspiratory Airway 24 Pressure Peak Inspiratory Airway 24 Pressure Peak Inspiratory Airway 24 Pressure Peak Inspiratory Airway 23 Pressure Peak Inspiratory Airway 22 Pressure Peak Inspiratory Airway 25 Pressure Peak Inspiratory Airway 30 Pressure Results - Laboratory Findings CBC and BMP: 08/07/16 03:35 08/07/16 03:35 ABG ABG pH 7.42 pH Units (7.32-7.45) 08/07/16 04:27 ABG pCO2 39 mmHg (35-45) 08/07/16 04:27 ABG pO2 65 mmHg (85-104) L 08/07/16 04:27 ABG O2 Saturation 93 % (95-98) L 08/07/16 04:27 PT/INR, D-dimer PT 29.1 Seconds (9.4-12.1) H 08/07/16 03:35 Abnormal lab findings: Abnormal lab results WBC 11.6 K/mcL (4.3-11.1) H 08/07/16 03:35 RBC 3.00 M/mcL (4.19-5.50) L 08/07/16 03:35 Hgb 8.9 g/dL (12.9-16.9) L 08/07/16 03:35 Hct 26.6 % (37.5-50.1) L 08/07/16 03:35 Eosinophils # 0.7 K/mcL (0.0-0.6) H 08/07/16 03:35 PT 29.1 Seconds (9.4-12.1) H 08/07/16 03:35 APTT 42.2 Seconds (26.0-36.0) H 08/05/16 03:35 ABG pO2 65 mmHg (85-104) L 08/07/16 04:27 ABG Total CO2 26.5 mEq/L (20-26) H 08/07/16 04:27 ABG O2 Saturation 93 % (95-98) L 08/07/16 04:27 BUN 27 mg/dL (8-26) H 08/07/16 03:35 Creatinine 1.38 mg/dL (0.72-1.25) H 08/07/16 03:35 Est GFR (Non-Af Amer) 50 (> 60) L 08/07/16 03:35 Glucose 171 mg/dL (70-99) H 08/07/16 03:35 POC Glucose 185 (58-89) H 08/07/16 06:01 Magnesium 1.1 mg/dL (1.6-2.6) L 08/03/16 03:25 Alkaline Phosphatase 178 Units/L (38-126) H 08/01/16 14:16 Albumin 2.9 g/dL (3.5-5.0) L 08/01/16 14:16 Globulin 5.3 g/dL (2.4-3.5) H 08/01/16 14:16 Albumin/Globulin Ratio 0.5 (1.1-2.2) L 08/01/16 14:16 TSH 6.026 mcIU/mL (0.350-4.840) H 08/04/16 04:16 Vancomycin Trough 20.5 mcg/mL (10-20) H* 08/04/16 04:16 - Microbiology Findings Microbiology Findings: Microbiology, Last 48 Hours 08/01/16 14:23 Blood Culture - Final Peripheral Venipuncture No growth. 08/01/16 14:16 Blood Culture - Final Peripheral Venipuncture No growth. - Clinical Findings Intake & Output: Intake & Output 08/06/16 08/06/16 08/07/16 15:59 23:59 07:59 Intake Total 550 / 550 250 / 250 352 / 352 Output Total 800 / 800 450 / 450 350 / 350 Balance -250 / -250 -200 / -200 2 / 2 Weight 74.8 kg Consult Discharge Plan - Plan Referrals: Silas Shah MD [Primary Care Provider] - <Alfonso Olmos - Last Filed: 08/07/16 09:51> Date of Encounter: 08/07/16 Objective PUL Vital signs: Last Vital Signs Temp 98.6 F 08/07/16 08:17 Pulse 88 08/07/16 09:00 Resp 24 08/07/16 09:00 BP 159/83 08/07/16 09:00 Pulse Ox 91 L 08/07/16 09:00 Ventilator Settings Ventilator Settings: Ventilator Settings, Last 8 Hours Ventilator Mode CPAP Ventilator Mode CPAP Ventilator Mode A/C Ventilator Mode A/C Ventilator Mode A/C Ventilator Mode A/C Ventilator Mode A/C Ventilator Mode A/C Ventilator Mode A/C Ventilator Tidal Volume 400 Setting Ventilator Tidal Volume 400 Setting Ventilator Tidal Volume 400 Setting Ventilator Tidal Volume 400 Setting Ventilator Tidal Volume 400 Setting Ventilator Tidal Volume 400 Setting Ventilator Tidal Volume 400 Setting Ventilator Respiratory Rate 20 Setting Ventilator Respiratory Rate 20 Setting Ventilator Respiratory Rate 20 Setting Ventilator Respiratory Rate 20 Setting Ventilator Respiratory Rate 20 Setting Ventilator Respiratory Rate 20 Setting Ventilator Respiratory Rate 20 Setting Actual Respiratory Rate 26 Actual Respiratory Rate 28 Actual Respiratory Rate 26 Positive End Expiratory 8 Pressure Positive End Expiratory 8 Pressure Positive End Expiratory 8 Pressure Positive End Expiratory 8 Pressure Positive End Expiratory 8 Pressure Positive End Expiratory 8 Pressure Positive End Expiratory 8 Pressure Positive End Expiratory 5 Pressure Positive End Expiratory 8 Pressure Peak Inspiratory Airway 14 Pressure Peak Inspiratory Airway 19 Pressure Peak Inspiratory Airway 20 Pressure Peak Inspiratory Airway 24 Pressure Peak Inspiratory Airway 24 Pressure Peak Inspiratory Airway 24 Pressure Peak Inspiratory Airway 23 Pressure Results - Laboratory Findings CBC and BMP: 08/07/16 03:35 08/07/16 03:35 ABG ABG pH 7.42 pH Units (7.32-7.45) 08/07/16 04:27 ABG pCO2 39 mmHg (35-45) 08/07/16 04:27 ABG pO2 65 mmHg (85-104) L 08/07/16 04:27 ABG O2 Saturation 93 % (95-98) L 08/07/16 04:27 PT/INR, D-dimer PT 29.1 Seconds (9.4-12.1) H 08/07/16 03:35 Abnormal lab findings: Abnormal lab results WBC 11.6 K/mcL (4.3-11.1) H 08/07/16 03:35 RBC 3.00 M/mcL (4.19-5.50) L 08/07/16 03:35 Hgb 8.9 g/dL (12.9-16.9) L 08/07/16 03:35 Hct 26.6 % (37.5-50.1) L 08/07/16 03:35 Eosinophils # 0.7 K/mcL (0.0-0.6) H 08/07/16 03:35 PT 29.1 Seconds (9.4-12.1) H 08/07/16 03:35 APTT 42.2 Seconds (26.0-36.0) H 08/05/16 03:35 ABG pO2 65 mmHg (85-104) L 08/07/16 04:27 ABG Total CO2 26.5 mEq/L (20-26) H 08/07/16 04:27 ABG O2 Saturation 93 % (95-98) L 08/07/16 04:27 BUN 27 mg/dL (8-26) H 08/07/16 03:35 Creatinine 1.38 mg/dL (0.72-1.25) H 08/07/16 03:35 Est GFR (Non-Af Amer) 50 (> 60) L 08/07/16 03:35 Glucose 171 mg/dL (70-99) H 08/07/16 03:35 POC Glucose 185 (58-89) H 08/07/16 06:01 Magnesium 1.1 mg/dL (1.6-2.6) L 08/03/16 03:25 Alkaline Phosphatase 178 Units/L (38-126) H 08/01/16 14:16 Albumin 2.9 g/dL (3.5-5.0) L 08/01/16 14:16 Globulin 5.3 g/dL (2.4-3.5) H 08/01/16 14:16 Albumin/Globulin Ratio 0.5 (1.1-2.2) L 08/01/16 14:16 TSH 6.026 mcIU/mL (0.350-4.840) H 08/04/16 04:16 Vancomycin Trough 20.5 mcg/mL (10-20) H* 08/04/16 04:16 - Microbiology Findings Microbiology Findings: Microbiology, Last 48 Hours 08/01/16 14:23 Blood Culture - Final Peripheral Venipuncture No growth. 08/01/16 14:16 Blood Culture - Final Peripheral Venipuncture No growth. - Clinical Findings Intake & Output: Intake & Output 08/06/16 08/07/16 08/07/16 23:59 07:59 15:59 Intake Total 250 / 250 420 / 420 20 / 20 Output Total 450 / 450 350 / 350 100 / 100 Balance -200 / -200 70 / 70 -80 / -80
[2016-08-07] MEDS: Pantoprazole 40 MG VIAL IVP SCH (09:28)
--- NOTE | 2016-08-07 09:48 | Event Note ---
Date of Encounter: 08/07/16 Time of Encounter: 09:44 Patient examined, chart and all data reviewed as well as the most recent imaging studies. I have reviewed the management in detail with and agree with the provisions of care, physical examination findings and management as outlined in her comprehensive progress note No new acute problems were noted overnight. Patient's FiO2 and PEEP requirements gradually improved over the past several days. He is currently undergoing spontaneous breathing trial. He is much more awake and interactive with caregivers this morning versus yesterday. Examination audible for faint crackles bilaterally. Cardiac exam remarkable. Abdominal exam soft. Extremities were warm to touch. Acute respiratory failure with hypoxia in this individual is secondary to ARDS the etiology of which is likely prior pneumonia (higher course of antibiotic therapy completed, culture negative). If the breathing trial is well-tolerated today the patient will undergo extubation. Patient utilizes chronic Coumadin therapy for reported chronic deep vein thrombosis. His INR is currently acceptable but Coumadin will need to be reintroduced. Nickolas
[2016-08-07] MEDS: *HR* LORazepam 2 MG/ML VIAL IVP PRN ×3 (12:30→23:21)
[2016-08-07] MEDS: Magnesium Oxide 400 MG TABLET PO SCH (12:32)
[2016-08-07] MEDS: Simethicone 80 MG TAB.CHEW PO SCH ×3 (12:32→21:10)
[2016-08-07] MEDS: Chlorhexidine Rinse 15 ML MOUTHWASH MM SCH ×2 (12:32→21:10)
[2016-08-07] MEDS: Cholecalciferol (D-3) 1,000 UNIT TABLET PO SCH (12:32)
[2016-08-07] MEDS: Docusate Oral Soln 100 MG/10 ML UDC PO SCH ×2 (12:32→21:10)
[2016-08-07] MEDS ORDERED: Furosemide 40 MG/4 ML VIAL IVP ONE (12:49)
[2016-08-07] MEDS ORDERED: *HR* Warfarin 5 MG TABLET PO ONE (18:00)
[2016-08-07] MEDS: methylPREDNISolone 125 MG/2 ML VIAL IVP SCH ×2 (18:05→23:50)
[2016-08-07] MEDS: Insulin DETEMIR 100 UNIT/ML X5UNITS SQ SCH (20:32)
[2016-08-08] MEDS: Ipratropium/Albuterol Neb 3 ML IH SCH ×7 (00:17→23:54)
[2016-08-08] MEDS: *HR* LORazepam 2 MG/ML VIAL IVP PRN ×2 (02:51→05:19)
[2016-08-08 05:08] LABS: INR 2.5; Prothrombin Time 27.5 Seconds (9.4-12.1)
[2016-08-08] MEDS: methylPREDNISolone 125 MG/2 ML VIAL IVP SCH ×4 (05:42→23:59)
[2016-08-08] MEDS: Insulin LISPRO 300 UNITS/3 ML VIAL SQ SCH ×3 (05:46→18:25)
--- NOTE | 2016-08-08 06:37 | Pulmonology Progress Note ---
Date of Encounter: 08/08/16 Time of Encounter: 06:26 Assessment and Plan (1) ARDS (adult respiratory distress syndrome) Current Visit: Yes Status: Acute Patient presented to the ICU in respiratory distress with tachypnea, tachycardia , diaphoresis and use of accessory muscles of respiration as well as a cough. Arterial blood gases revealed hypoxemia. Patient meets criteria for ARDS: Respiratory symptoms have begun within a week and the patient's clinical symptoms have progressively worsened as patient initially had dyspnea and hypoxemia progressing to acute respiratory failure. However, given symptoms may be due to pneumonia, sepsis, aspiration as patient has not had known trauma. Most likely etiology may be pneumonia. Differential does include acute hypoxemic respiratory failure with bilateral alveolar infiltrates. [place] criteria: -patient has bilateral opacities on chest x-ray which are not fully explained by cardiac failure or fluid overload, pleural effusion, lobar collapse, lung collapse or pulmonary nodule; a PaO2/FiO2 ratio of less than 300 patient was initially at 58/.45 = 128.8 ; on PEEP greater than 5 cm of water patient was initially at a PEEP of 10. Stratified as moderate ARDS. Due to FiO2 and PEEP requirement gradually improving over the last 2 days- Patient was given a breathing trial and was extubated 08/07/16. Initally, patient was tolerating well and was interactive with staff. Patient was on bipap overnight he became hypertensive Appeared uncomfortable and began using accessory muscles with increase tachypnea rate of 30-40 respirations per minute , tachycardia. This morning patient was reintubated. Versed and fentanyl. ET tube was retracted as suggested. Morning Labs and ABG pending Bronchioalveolar Lavage Performed: Pending : Culture, cell count, Gram stain. Chest CT 08/03/16 11:00 IMPRESSION: Multifocal pneumonia with small pleural effusions. Small mediastinal nodes are seen, likely reactive Chest X-Ray 08/08/16 07:53 IMPRESSION: 1. Endotracheal tube tip is currently just above the marii. Recommend the tube be retracted approximately 3 cm 2. Persistent diffuse bilateral airspace disease with pleural effusions, with slight worsening airspace disease in the right perihilar region KUB X-Ray 08/08/16 09:20 IMPRESSION: Gastric tube in the stomach Patient's risk factor for ARDS was recent pneumonia which puts him at significant risk for a pulmonary source of sepsis. Supportive care: -Fluid balance should be maintained at neutral or negative balance. Will hold supplemental fluids for conservative management of fluids evidence is based on the FACTT trial. 20 mg grams IV push Lasix established mild diuresis yesterday. Patient may require another dose if fluid balance remains positive. -Maintain CVP of less than 4. -Maintain arterial pressure greater than 60. -Enternal nutritional support -DVT prophylaxis: Patient does have long-standing DVT and was on warfarin although therapy is currently being held due to INR; INR today is 2.5 . Will Re evaluate INR Tomorrow. Pharmacy to follow warfarin administration. -stress ulcer prophylaxis If patient receives low tidal volume and has a pH of less than 7.15 despite our increase in ventilatory rate - we may consider a bicarbonate infusion. Steroids may be considered as this episode is less than 1 week as of today. Antibiotic therapy: Discontinued due to results below that do not support pneumonia. Results: NEGATIVE: blood culture, sputum culture, urine antigens for Legionella and streptococcal. Optimizing ventilation for better outcome: Continue sedation to reduce patient ventilator dyssynchrony. No specific guideline for ARDS however if the patient is difficult to oxygenate heavy sedation may be required 4-5 on the [place] agitation sedation scale. Continue paralytic either intermittent doses or continuous IV infusion with monitoring if oxygenation cannot be achieved despite low tidal volume ventilation and adequate sedation or continued evidence of ventilator patient dyssynchrony. Palliative care consulted. Subjective Principal diagnosis: ARDS Interval history: Patient was extubated yesterday and was initially doing well on 4 L oxygen by nasal cannula for approximately 3 hours. He began to desaturate down to mid 80s and exhibited increased respiratory effort with accessory muscle use. Patient was placed on BiPAP overnight. Patient had episodes of hypertension that were adjusted with 20 mg hydralazine. This morning patient appeared very uncomfortable, which tachypnea breathing at 30-40 respirations per minute, increase use of muscles of respiration and paradoxical breathing. Patient was reintubated and sedated. Palliative care consult placed. Objective PUL Vital signs: Last Vital Signs Temp 96.7 F L 08/08/16 04:59 Pulse 89 08/08/16 06:00 Resp 42 08/08/16 06:00 BP 176/88 08/08/16 06:00 Pulse Ox 100 08/08/16 06:00 General appearance: appears uncomfortable, other (Increase work of breathing with accessory muscle usage and paradoxical breathing.) Eyes: nonicteric ENT: oropharynx moist Neck: supple Effort: normal Auscultation: bilateral: other (crackles) Cardiovascular: irregular rhythm (A. fib rate controlled) Gastrointestinal: normoactive bowel sounds, soft, non-tender, non-distended Integumentary: other (Diffuse excoriations) Extremities: no cyanosis, no edema, pink and warm, pulses normal Musculoskeletal: no deformities pupils equal and round, other (Right side decreased babysitter strength) other (Baseline dementia. Minimally responsive.) Results - Laboratory Findings CBC and BMP: 08/07/16 03:35 08/07/16 03:35 ABG ABG pH 7.42 pH Units (7.32-7.45) 08/07/16 04:27 ABG pCO2 39 mmHg (35-45) 08/07/16 04:27 ABG pO2 65 mmHg (85-104) L 08/07/16 04:27 ABG O2 Saturation 93 % (95-98) L 08/07/16 04:27 PT/INR, D-dimer PT 27.5 Seconds (9.4-12.1) H 08/08/16 04:55 Abnormal lab findings: Abnormal lab results WBC 11.6 K/mcL (4.3-11.1) H 08/07/16 03:35 RBC 3.00 M/mcL (4.19-5.50) L 08/07/16 03:35 Hgb 8.9 g/dL (12.9-16.9) L 08/07/16 03:35 Hct 26.6 % (37.5-50.1) L 08/07/16 03:35 Eosinophils # 0.7 K/mcL (0.0-0.6) H 08/07/16 03:35 PT 27.5 Seconds (9.4-12.1) H 08/08/16 04:55 APTT 42.2 Seconds (26.0-36.0) H 08/05/16 03:35 ABG pO2 65 mmHg (85-104) L 08/07/16 04:27 ABG Total CO2 26.5 mEq/L (20-26) H 08/07/16 04:27 ABG O2 Saturation 93 % (95-98) L 08/07/16 04:27 BUN 27 mg/dL (8-26) H 08/07/16 03:35 Creatinine 1.38 mg/dL (0.72-1.25) H 08/07/16 03:35 Est GFR (Non-Af Amer) 50 (> 60) L 08/07/16 03:35 Glucose 171 mg/dL (70-99) H 08/07/16 03:35 POC Glucose 170 (58-89) H 08/08/16 05:41 Magnesium 1.1 mg/dL (1.6-2.6) L 08/03/16 03:25 Alkaline Phosphatase 178 Units/L (38-126) H 08/01/16 14:16 Albumin 2.9 g/dL (3.5-5.0) L 08/01/16 14:16 Globulin 5.3 g/dL (2.4-3.5) H 08/01/16 14:16 Albumin/Globulin Ratio 0.5 (1.1-2.2) L 08/01/16 14:16 TSH 6.026 mcIU/mL (0.350-4.840) H 08/04/16 04:16 Vancomycin Trough 20.5 mcg/mL (10-20) H* 08/04/16 04:16 - Microbiology Findings Microbiology Findings: Microbiology, Last 48 Hours 08/01/16 14:23 Blood Culture - Final Peripheral Venipuncture No growth. 08/01/16 14:16 Blood Culture - Final Peripheral Venipuncture No growth. - Clinical Findings Intake & Output: Intake & Output 08/07/16 08/07/16 08/08/16 15:59 23:59 07:59 Intake Total Output Total 1650 / 1650 1000 / 1000 650 / 650 Balance -1630 / -1630 -1000 / -1000 -650 / -650 Pulmonary Procedures - Intubation Time out performed: Yes Sedative: other (Etomidate and Versed) Assist device used: video scope ET tube size: 7.5 Tube secured depth (cm): 25 Tube secured location: lips Tube placement confirmation: visualized tube passing through cords, equal breath sounds bilaterally, no breath sounds over epigastrium, confirmation by capnometry Patient tolerated procedure: well, no complications Intubation complications: none Consult Discharge Plan - Plan Referrals: Silas Shah MD [Primary Care Provider] -
[2016-08-08] MEDS ORDERED: *HR* Midazolam HCl 5 MG/5 ML VIAL IVP ONE (07:39)
[2016-08-08] MEDS ORDERED: *HR* Etomidate 20 MG/10 ML AMPUL IVP ONE (07:39)
[2016-08-08 08:52] LABS: Source of Body Fluid BAL:right upper lobe
[2016-08-08] MEDS: FentaNYL (PF) 1,000 MCG in 0.9 % Sodium Chloride 80 ML IVC SCH ×2 (09:52→23:50)
[2016-08-08 09:57] LABS: Appearance of Body Fluid Clear (Clear); Volume of Body Fluid 18 mL
[2016-08-08] MEDS: Chlorhexidine Rinse 15 ML MOUTHWASH MM SCH ×2 (09:57→21:03)
--- NOTE | 2016-08-08 10:45 | Procedure Note ---
Date of procedure: 08/04/16 Pre-op diagnosis: Acute respiratory failure Post-op diagnosis: same Procedure: Given the magnitude of hypoxia as well as respiratory distress, the patient received sedation with Versed and Etomidate and was subsequently orally intubated by Dr. Berger my direct supervision. No untoward events were noted. A follow-up chest radiograph revealed appropriate placement of the endotracheal tube.
--- NOTE | 2016-08-08 10:48 | Procedure Note ---
Date of procedure: 08/04/16 Pre-op diagnosis: Acute respiratory failure with hypoxia Post-op diagnosis: same Procedure: A left IJ CVC device was placed using sterile maximal barrier technique, sterile ultrasound guidance by Dr. Berger under my direct supervision. The device was flushed sutured in position. No untoward events were noted. A follow-up chest radiograph revealed appropriate placement.
--- NOTE | 2016-08-08 10:51 | Procedure Note ---
Date of procedure: 08/08/16 Pre-op diagnosis: Acute respiratory failure with hypoxia Post-op diagnosis: same Procedure: Following oral intubation, bronchoscopy was performed for the purpose of microbiological analysis (emergently). Disposable bronchoscope was passed through the pre-existing oral undertake tracheal tube. The scope was subsequently wedged into the right lower lobe and a bronchoalveolar lavage was performed. The retrieved specimen was sent for routine analysis including microbiology and cell count differential. The underlying airway mucosa was friable, not severely inflamed. No obvious purulence was noted.
[2016-08-08 10:54] LABS: ABG Base Excess 2.6 mEq/L (-2.0 to 3.0); ABG HCO3 26.1 mEQ/L (21-27); ABG Oxygen Saturation 97 % (95-98); ABG PCO2 35 mmHg (35-45); ABG PH 7.48 pH Units (7.32-7.45); ABG PO2 84 mmHg (85-104); ABG TCO2 27.2 mEq/L (20-26); Blood Gas FiO2 30 %
--- NOTE | 2016-08-08 11:02 | Event Note ---
Date of Encounter: 08/08/16 Time of Encounter: 10:57 Patient examined, chart and all data reviewed as well as most recent imaging studies. Given progressive decline in the patient's clinical status as evidenced by worsening hypoxemia I work breathing and on noninvasive ventilation since extubation, she was subsequently reintubated this morning by Dr. Berger under my direct supervision (review her comprehensive progress note for details). The patient continues to suffer from acute respiratory failure with hypoxia due to presumptive ARDS. He was placed on systemic steroids within the past 24 hours is also receiving empiric diuretics and has not substantially improved. Bronchoalveolar lavage was performed rather emergently in order to specimen to exclude superimposed infection (his low index of suspicion for superimposed pneumonia). Patient has a very guarded prognosis. If he continues to require ventilatory support over the next 5-7 days and if aggressive care is desired by the family, will require tracheostomy placement feeding tube placement and eventual transfer to an LTACH. Continue all other medical measures as outlined. The patient given his tenuous respiratory clinical status required 35 minutes of critical care time today for his management. He suffers from life- threatening respiratory failure which continues to act upon his mortality. Nickolas
[2016-08-08] MEDS: Docusate Oral Soln 100 MG/10 ML UDC PO SCH ×2 (12:21→21:03)
[2016-08-08] MEDS: Simethicone 80 MG TAB.CHEW PO SCH ×3 (12:21→21:03)
[2016-08-08] MEDS: Magnesium Oxide 400 MG TABLET PO SCH (12:21)
[2016-08-08] MEDS: Pantoprazole 40 MG VIAL IVP SCH (12:21)
[2016-08-08] MEDS: Cholecalciferol (D-3) 1,000 UNIT TABLET PO SCH (12:21)
[2016-08-08] MEDS ORDERED: *HR* Warfarin 2.5 MG TABLET PO ONE (18:00)
[2016-08-08] MEDS: Insulin DETEMIR 100 UNIT/ML X5UNITS SQ SCH (21:19)
[2016-08-09] MEDS: Insulin LISPRO 300 UNITS/3 ML VIAL SQ SCH ×5 (00:02→23:22)
[2016-08-09] MEDS: Ipratropium/Albuterol Neb 3 ML IH SCH ×6 (03:27→23:53)
[2016-08-09 04:28] LABS: ABG Base Excess 3.3 mEq/L (-2.0 to 3.0); ABG HCO3 27.8 mEQ/L (21-27); ABG Oxygen Saturation 97 % (95-98); ABG PCO2 41 mmHg (35-45); ABG PH 7.44 pH Units (7.32-7.45); ABG PO2 85 mmHg (85-104); ABG TCO2 29.1 mEq/L (20-26); Blood Gas FiO2 30 %
[2016-08-09 04:38] LABS: INR 2.7; Prothrombin Time 30.3 Seconds (9.4-12.1)
[2016-08-09 04:40] LABS: Basophils % 0.2 %; Hematocrit 28.6 % (37.5-50.1); Hemoglobin 9.5 g/dL (12.9-16.9); Immature Granulocytes % 0.9 % (0-4); Lymphocytes # 0.8 K/mcL (0.6-4.6); Lymphocytes % 6.7 %; Mean Corpuscular HGB Conc 33.2 g/dL (31.6-35.5); Mean Corpuscular Hemoglobin 29.3 pg (28.0-33.3); Mean Corpuscular Volume 88.3 fL (83.0-100.0); Mean Platelet Volume 10.1 fL (9.4-12.4); Monocytes # 0.7 K/mcL (0.0-1.3); Monocytes % 5.7 %; Neutrophils # 10.2 K/mcL (1.6-8.9); Platelet Count 355 K/mcL (140-400); Red Blood Count 3.24 M/mcL (4.19-5.50); Red Cell Distribution Width 13.4 % (11.5-14.5); Segmented Neutrophils % 86.5 %
[2016-08-09 04:41] LABS: Activated Partial Thrombo Time 39.1 Seconds (26.0-36.0)
[2016-08-09 05:03] LABS: Calcium 8.9 mg/dL (8.6-10.8); Magnesium 1.6 mg/dL (1.6-2.6); Potassium 3.3 mEq/L (3.5-4.5)
[2016-08-09 05:13] LABS: Ionized Calcium 1.18 mmol/L (1.15-1.35)
[2016-08-09] MEDS: methylPREDNISolone 125 MG/2 ML VIAL IVP SCH ×4 (05:19→23:23)
--- NOTE | 2016-08-09 07:20 | Pulmonology Progress Note ---
Date of Encounter: 08/09/16 Time of Encounter: 07:18 Assessment and Plan (1) ARDS (adult respiratory distress syndrome) Current Visit: Yes Status: Acute Patient presented to the ICU in respiratory distress with tachypnea, tachycardia , diaphoresis and use of accessory muscles of respiration as well as a cough. Arterial blood gases revealed hypoxemia. Patient meets criteria for ARDS: Respiratory symptoms have begun within a week and the patient's clinical symptoms have progressively worsened as patient initially had dyspnea and hypoxemia progressing to acute respiratory failure. However, given symptoms may be due to pneumonia, sepsis, aspiration as patient has not had known trauma. Most likely etiology may be pneumonia. Differential does include acute hypoxemic respiratory failure with bilateral alveolar infiltrates. [place] criteria: -patient has bilateral opacities on chest x-ray which are not fully explained by cardiac failure or fluid overload, pleural effusion, lobar collapse, lung collapse or pulmonary nodule; a PaO2/FiO2 ratio of less than 300 patient was initially at 58/.45 = 128.8 ; on PEEP greater than 5 cm of water patient was initially at a PEEP of 10. Stratified as moderate ARDS. Due to FiO2 and PEEP requirement gradually improving over the last 2 days- Patient was given a breathing trial and was extubated 08/07/16. Initally, patient was tolerating well and was interactive with staff. Patient was on bipap overnight he became hypertensive Appeared uncomfortable and began using accessory muscles with increase tachypnea rate of 30-40 respirations per minute , tachycardia. patient was reintubated 08/08/16. Versed and fentanyl. ET tube was retracted as suggested. Morning Labs and ABG Scheduled. Bronchioalveolar Lavage Performed 08/08/16: Preliminary results demonstrate no growth after 24 hours : Culture, cell count, Gram stain. Chest CT 08/03/16 11:00 IMPRESSION: Multifocal pneumonia with small pleural effusions. Small mediastinal nodes are seen, likely reactive KUB X-Ray 08/08/16 09:20 IMPRESSION: Gastric tube in the stomach Chest X-Ray 08/09/16 04:00 IMPRESSION: Endotracheal tube has been repositioned and now lies 2.7 cm above the marii. Stable bilateral pulmonary infiltrates with associated small effusions. Patient's risk factor for ARDS was recent pneumonia which puts him at significant risk for a pulmonary source of sepsis. Supportive care: -Fluid balance should be maintained at neutral or negative balance. Will hold supplemental fluids for conservative management of fluids evidence is based on the FACTT trial. 20 mg grams IV push Lasix established mild diuresis. Patient may require another dose if fluid balance remains positive. -Maintain CVP of less than 4. -Maintain arterial pressure greater than 60. 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 Will Re evaluate INR Tomorrow. Pharmacy to follow warfarin administration. -stress ulcer prophylaxis If patient receives low tidal volume and has a pH of less than 7.15 despite our increase in ventilatory rate - we may consider a bicarbonate infusion. Steroids may be considered as this episode is less than 1 week as of presentation. Continue Solu-Medrol IVP today 08/09/16. Will discontinue Solu-Medrol on and begin oral prednisone 60 mg daily. Antibiotic therapy: Discontinued due to results below that do not support pneumonia. Results: NEGATIVE: blood culture, sputum culture, urine antigens for Legionella and streptococcal. Optimizing ventilation for better outcome: Continue sedation to reduce patient ventilator dyssynchrony. No specific guideline for ARDS however if the patient is difficult to oxygenate heavy sedation may be required 4-5 on the Leija agitation sedation scale. Continue paralytic either intermittent doses or continuous IV infusion with monitoring if oxygenation cannot be achieved despite low tidal volume ventilation and adequate sedation or continued evidence of ventilator patient dyssynchrony. Palliative care consulted should be here today on 08/09/16. Subjective Principal diagnosis: ARDS Interval history: Patient was re-intubated and sedated yesterday. Palliative care consult placed. This morning patient is easily arousable however does not follow commands opens eyes and stares. Objective PUL Vital signs: Last Vital Signs Temp 97.3 F L 08/09/16 04:00 Pulse 81 08/09/16 06:00 Resp 20 08/09/16 06:00 BP 146/86 08/09/16 06:00 Pulse Ox 97 08/09/16 06:00 General appearance: no acute distress Eyes: nonicteric ENT: oropharynx moist Mallampati (class): 2 Neck: supple Effort: normal Auscultation: bilateral: diminished breath sounds, wheezes Cardiovascular: regular rate and rhythm Gastrointestinal: normoactive bowel sounds, soft, non-tender, non-distended Integumentary: other (Diffuse excoriations) Extremities: no cyanosis, pink and warm, pulses normal Musculoskeletal: no deformities Gait: normal gait pupils equal and round other (Intubated and sedated) Ventilator Settings Ventilator Settings: Ventilator Settings, Last 8 Hours Ventilator Mode A/C Ventilator Mode A/C Ventilator Mode A/C Ventilator Mode A/C Ventilator Mode A/C Ventilator Mode A/C Ventilator Mode A/C Ventilator Mode A/C Ventilator Mode A/C Ventilator Mode A/C Ventilator Mode A/C Ventilator Mode A/C Ventilator Tidal Volume 400 Setting Ventilator Tidal Volume 400 Setting Ventilator Tidal Volume 400 Setting Ventilator Tidal Volume 400 Setting Ventilator Tidal Volume 400 Setting Ventilator Tidal Volume 400 Setting Ventilator Tidal Volume 400 Setting Ventilator Tidal Volume 400 Setting Ventilator Tidal Volume 400 Setting Ventilator Tidal Volume 400 Setting Ventilator Tidal Volume 400 Setting Ventilator Tidal Volume 400 Setting Ventilator Respiratory Rate 20 Setting Ventilator Respiratory Rate 20 Setting Ventilator Respiratory Rate 20 Setting Ventilator Respiratory Rate 20 Setting Ventilator Respiratory Rate 20 Setting Ventilator Respiratory Rate 20 Setting Ventilator Respiratory Rate 20 Setting Ventilator Respiratory Rate 20 Setting Ventilator Respiratory Rate 20 Setting Ventilator Respiratory Rate 20 Setting Ventilator Respiratory Rate 20 Setting Ventilator Respiratory Rate 20 Setting Actual Respiratory Rate 20 Actual Respiratory Rate 20 Actual Respiratory Rate 20 Actual Respiratory Rate 20 Actual Respiratory Rate 20 Actual Respiratory Rate 20 Actual Respiratory Rate 20 Actual Respiratory Rate 20 Actual Respiratory Rate 20 Actual Respiratory Rate 20 Actual Respiratory Rate 22 Positive End Expiratory 8 Pressure Positive End Expiratory 8 Pressure Positive End Expiratory 8 Pressure Positive End Expiratory 8 Pressure Positive End Expiratory 8 Pressure Positive End Expiratory 8 Pressure Positive End Expiratory 8 Pressure Positive End Expiratory 8 Pressure Positive End Expiratory 8 Pressure Positive End Expiratory 8 Pressure Positive End Expiratory 8 Pressure Positive End Expiratory 8 Pressure Peak Inspiratory Airway 29 Pressure Peak Inspiratory Airway 30 Pressure Peak Inspiratory Airway 28 Pressure Peak Inspiratory Airway 28 Pressure Peak Inspiratory Airway 30 Pressure Peak Inspiratory Airway 28 Pressure Peak Inspiratory Airway 28 Pressure Peak Inspiratory Airway 28 Pressure Peak Inspiratory Airway 28 Pressure Peak Inspiratory Airway 28 Pressure Peak Inspiratory Airway 22 Pressure Results - Laboratory Findings CBC and BMP: 08/09/16 04:20 08/09/16 04:20 ABG ABG pH 7.44 pH Units (7.32-7.45) 08/09/16 04:15 ABG pCO2 41 mmHg (35-45) 08/09/16 04:15 ABG pO2 85 mmHg (85-104) 08/09/16 04:15 ABG O2 Saturation 97 % (95-98) 08/09/16 04:15 PT/INR, D-dimer PT 30.3 Seconds (9.4-12.1) H 08/09/16 04:20 Abnormal lab findings: Abnormal lab results WBC 11.8 K/mcL (4.3-11.1) H 08/09/16 04:20 RBC 3.24 M/mcL (4.19-5.50) L 08/09/16 04:20 Hgb 9.5 g/dL (12.9-16.9) L 08/09/16 04:20 Hct 28.6 % (37.5-50.1) L 08/09/16 04:20 Neutrophils # 10.2 K/mcL (1.6-8.9) H 08/09/16 04:20 PT 30.3 Seconds (9.4-12.1) H 08/09/16 04:20 APTT 39.1 Seconds (26.0-36.0) H 08/09/16 04:20 ABG HCO3 27.8 mEQ/L (21-27) H 08/09/16 04:15 ABG Total CO2 29.1 mEq/L (20-26) H 08/09/16 04:15 ABG Base Excess 3.3 mEq/L (-2.0 to 3.0) H 08/09/16 04:15 Potassium 3.3 mEq/L (3.5-4.5) L 08/09/16 04:20 Chloride 110 mEq/L (98-109) H 08/09/16 04:20 BUN 45 mg/dL (8-26) H D 08/09/16 04:20 Creatinine 1.60 mg/dL (0.72-1.25) H 08/09/16 04:20 Est GFR ( Amer) 51 (> 60) L 08/09/16 04:20 Est GFR (Non-Af Amer) 42 (> 60) L 08/09/16 04:20 BUN/Creatinine Ratio 28 (6-26) H 08/09/16 04:20 Glucose 288 mg/dL (70-99) H 08/09/16 04:20 POC Glucose 290 (58-89) H 08/09/16 05:15 Calculated Osmolality 322 (280-300) H 08/09/16 04:20 Alkaline Phosphatase 178 Units/L (38-126) H 08/01/16 14:16 Albumin 2.9 g/dL (3.5-5.0) L 08/01/16 14:16 Globulin 5.3 g/dL (2.4-3.5) H 08/01/16 14:16 Albumin/Globulin Ratio 0.5 (1.1-2.2) L 08/01/16 14:16 TSH 6.026 mcIU/mL (0.350-4.840) H 08/04/16 04:16 Vancomycin Trough 20.5 mcg/mL (10-20) H* 08/04/16 04:16 - Microbiology Findings Microbiology Findings: Microbiology, Last 48 Hours 08/08/16 08:27 Body Fluid Culture - Preliminary Other-Specify in Comments - Clinical Findings Intake & Output: Intake & Output 08/08/16 08/08/16 08/09/16 15:59 23:59 07:59 Intake Total 140 / 140 653 / 653 266 / 266 Output Total 175 / 175 150 / 150 75 / 75 Balance -35 / -35 503 / 503 191 / 191 Weight 69.9 kg Consult Discharge Plan - Plan Referrals: Silas Shah MD [Primary Care Provider] -
[2016-08-09] MEDS: Pantoprazole 40 MG VIAL IVP SCH (09:41)
[2016-08-09] MEDS: Docusate Oral Soln 100 MG/10 ML UDC PO SCH ×2 (09:41→20:04)
[2016-08-09] MEDS: Simethicone 80 MG TAB.CHEW PO SCH ×3 (09:42→20:04)
[2016-08-09] MEDS: Chlorhexidine Rinse 15 ML MOUTHWASH MM SCH ×2 (09:42→20:04)
[2016-08-09] MEDS: Magnesium Oxide 400 MG TABLET PO SCH (09:42)
[2016-08-09] MEDS: Cholecalciferol (D-3) 1,000 UNIT TABLET PO SCH (09:42)
--- NOTE | 2016-08-09 10:43 | Event Note ---
Date of Encounter: 08/09/16 Time of Encounter: 10:38 Patient examined, chart and all data reviewed as well as recent imaging studies of the chest. The patient's management was reviewed in detail during multidisciplinary critical care rounds this morning. The patient required reintubation yesterday have been progressive decline of respiratory clinical status in spite of noninvasive ventilatory support, empiric diuresis and empiric steroid therapy (treatment of acute respiratory failure with hypoxia secondary to ARDS). Following successful intubation and re -initiation of long protractive strategy via invasive ventilatory support, the patient underwent bronchoalveolar lavage Wish[place] essence revealed no evidence to support an infectious process. Overnight, no acute new issues were reported per discussion with nursing staff. As outlined in Dr. Marcos's apprehensive progress note which I reviewed in detail, patient will be transitioned to enteral steroids within the next 24 hours, anticipating notes no taper until clinical improvement I reviewed the situation yesterday at length with the patient's . It is her understanding that is of care will be continued through the up coming middle part of next week. If there is no improvement in the patient's overall status she may elect to withdraw support but clearly is opposed at least at this time to tracheostomy, feeding tube placement and long-term management of respiratory failure in an LTACH setting for ventilator weaning. The patient's management required 35 minutes of critical care time devoted to evaluation and treatment of acute respiratory failure with hypoxia. [place] [phone]
--- NOTE | 2016-08-09 12:38 | Palliative - Consult Note ---
Date of Encounter: 08/09/16 Time of Encounter: 12:30 - Assessment and Plan (1) Generalized pain Current Visit: Yes Status: Acute Assessment and plan: Remains on Fentanyl drip per ICU protocol, currently at 50mcg/hr. Monitor (2) Anxiety Current Visit: Yes Status: Acute Assessment and plan: Remains on Midolazam per ICU protocol, currently at 10mg/hr. (3) Goals of care, counseling/discussion Current Visit: Yes Status: Acute Assessment and plan: Long discussion with Yenni, re: goals of care. She has already had some discussion with the ICU team re: what she believes pt wishes are. States he has a living will, and she has read it closely and understands that it doesn't clarify every situation. She does not believe that pt would want trach/ artificial feeding or ongoing life sustaining measures if it is suspected he would be institutionalized and have poor quality of life. Patient has 2 sons from previous marriage, son Dereje is engaged and participating with decisions, other son more estranged, although they have communicated with him his father's condition. Yenni and son Dereje are still hopeful that pt will be able to participate in his own decisions, but understand that may not happen. Yenni does not want CPR/ACLS/Defib for cardiac arrest and states, "if his heart stops , let him go". Code status changed to DNRCC-Arrest. She would like to continue vent support a few more days and consider withdraw on /Wed. Will continue to follow. (4) Acute and chronic respiratory failure with hypoxia Current Visit: Yes Status: Acute (5) HCAP (healthcare-associated pneumonia) Current Visit: Yes Status: Acute (6) ARDS (adult respiratory distress syndrome) Current Visit: Yes Status: Acute Palliative-CN HPI - Data of Consult Requesting Physician: Willie Romero DO Primary Care Provider: Silas Shah MD - Consult Narrative History of present illness: Mr. Cummins is a 76 year old male with a recent history of hospital stay for pneumonia in [facility], who presented with increasing shortness of breath. , Yenni at bedside providing information states that he "seemed better" for about a week post-discharge, but then quickly developed labored breathing at home, and his son was notified and brought him to hospital. He was on bipap therapy, however, went further into respiratory failure and required intubation last . He was extubated Wednesday am, and throughout the day required increasing amounts of oxygen, eventually bipap, and was re-intubated Wednesday. He currently remains sedated and on the ventilator. Pertinent medical history includes, diabetes, arthritis/bulging disc in back, COPD, HTN, DVT, renal disease - followed by Dr. Dyer. CC: Willie Romero, DO Past Med Surg Social Fam HX - Past Medical History Medical history: arthritis, asthma, COPD, DVT, diabetes, GERD, hyperlipidemia, hypertension, kidney stones, osteoporosis (Left hip avascular necrosis.), RA, renal disease, SVT, other (Psoriasis. Alcohol dependency. Anemia. Nicotine dependency.) Psychiatric history: no psych history, other - Past Surgical History Surgical History: hip replacement, ureteral stent, vascular surgery (Right lower extremity venous thrombectomy s/p DVT), other (Penile implant 2. Colonoscopy.) - Social History Smoking Status: Current every day smoker Smokeless Tobacco Status: No Alcohol use: occasionally, heavy (Drinks as much as 6-12 beers per day. Rarely less than 2-3 beers per day.) Drug use: none - Family History Father Living Status: Medications and Allergies Warfarin [Coumadin] 5 mg PO Q48H 06/24/16 [History] Atorvastatin [Lipitor] 20 mg PO HS 07/01/16 [History] Carvedilol [Coreg] 12.5 mg PO BID 07/01/16 [History] Cholecalciferol (Vitamin D3) [Vitamin D3] 5,000 unit PO DAILY 07/01/16 [History] CloNIDine HCl [Clonidine HCl] 0.3 mg PO TID 07/01/16 [History] Doxazosin [Cardura] 4 mg PO BID 07/01/16 [History] Hydroxyzine HCl 25 mg PO Q6H 07/01/16 [History] Insulin DETEMIR [Levemir Flextouch] 26 unit SQ HS 07/01/16 [History] NIFEdipine XL (24 HR) [Procardia XL] 60 mg PO BID 07/01/16 [History] Sitagliptin Phosphate [Januvia] 50 mg PO DAILY 07/01/16 [History] Furosemide [Lasix] 40 mg PO DAILY 08/02/16 [History] Warfarin [Coumadin] 2.5 mg PO Q48H 08/02/16 [History] Allergies ciprofloxacin [From Cipro] Allergy (Verified 07/01/16 13:16) See Comments doxycycline Allergy (Verified 07/01/16 13:16) Redness of Skin Erythromycin Base Allergy (Verified 07/01/16 13:16) Rash guanfacine Allergy (Verified 07/01/16 13:16) See Comments ofloxacin Allergy (Verified 07/01/16 13:16) Hives Penicillins [PCN] Allergy (Verified 07/01/16 13:16) See Comments Procaine Allergy (Verified 07/01/16 13:16) See Comments sulfamethoxazole Allergy (Verified 07/01/16 13:16) See Comments Tocainide [From Tonocard] Allergy (Verified 07/01/16 13:16) See Comments ROS unobtainable: due to mental status Palliative Care-Exam - Constitutional Vitals: Temp Pulse Resp BP Pulse Ox 97.5 F L 73 20 166/83 98 08/09/16 11:57 08/09/16 12:07 08/09/16 12:00 08/09/16 12:00 08/09/16 12:00 General appearance: Present: no acute distress - Head Head Exam: Present: normal inspection, normocephalic - Respiratory Additional comments: Breath sounds course throughout. Remains on vent - Fio2 30%, PEEP 8. - Cardiovascular Cardiovascular exam: Present: +S1, +S2 - GI/Abdominal Exam GI/Abdominal exam: Present: diminished bowel sounds, distended, soft - Catheter Type: Urethral (Garcia) Additional comments: Urine clear yellow - Extremities Exam Extremities exam: Present: normal capillary refill, normal inspection - Neurological Exam Additional comments: Sedated on vent, does move in bed when examined - Skin Skin exam: Present: dry, pallor, warm Internal Medicine - CN: Reslt - Labs CBC & Chem 7: 08/09/16 04:20 08/09/16 04:20 Labs: Short CBC 08/09/16 Range/Units 04:20 WBC 11.8 H (4.3-11.1) K/mcL Hgb 9.5 L (12.9-16.9) g/dL Hct 28.6 L (37.5-50.1) % Plt Count 355 (140-400) K/mcL Neutrophils # 10.2 H (1.6-8.9) K/mcL BMP 08/09/16 04:20 Sodium 145 Potassium 3.3 L Chloride 110 H Carbon Dioxide 24 BUN 45 H D Creatinine 1.60 H Glucose 288 H Calcium 8.9 - ABG Interpretation ABG results: ABG ABG pH 7.44 pH Units (7.32-7.45) 08/09/16 04:15 ABG pCO2 41 mmHg (35-45) 08/09/16 04:15 ABG pO2 85 mmHg (85-104) 08/09/16 04:15 ABG O2 Saturation 97 % (95-98) 08/09/16 04:15 PT/INR, D-dimer PT 30.3 Seconds (9.4-12.1) H 08/09/16 04:20 - Impressions Impressions Chest X-Ray 08/09/16 04:00 IMPRESSION: Endotracheal tube has been repositioned and now lies 2.7 cm above the marii. Stable bilateral pulmonary infiltrates with associated small effusions. D/ / 08/09/2016 08:17:20 Deandre Liriano MD / [email or web address] Interpreting Provider: Deandre Liriano MD Consult Discharge Plan - Plan Referrals: Silas Shah MD [Primary Care Provider] - Palliative Quality Palliative Quality: Screen for Code Status: Yes, Screen for Goals of Care: Yes, Screen for Pain: Yes, If Pain Regimen Started, Initiate Bowel Regimen: Yes, Screen for Nausea/Vomitting: NA Code Status: 08/01/16 14:30 FULL [Resuscitation Status: Active] [RES] Routine Comment: Resuscitation Status: Full Code
[2016-08-09] MEDS ORDERED: Furosemide 20 MG/2 ML VIAL IVP ONE (15:37)
[2016-08-09] MEDS: FentaNYL (PF) 1,000 MCG in 0.9 % Sodium Chloride 80 ML IVC SCH (16:54)
[2016-08-09] MEDS ORDERED: *HR* Warfarin 5 MG TABLET PO ONE (18:00)
[2016-08-09] MEDS: Insulin DETEMIR 100 UNIT/ML X5UNITS SQ SCH (20:06)
[2016-08-09] MEDS ORDERED: *HR* Atropine Sulfate 1 MG/10 ML SYRINGE ONE (20:40)
[2016-08-10] MEDS ORDERED: FentaNYL (PF) 3,000 MCG in 0.9 % Sodium Chloride 240 ML IVC SCH (03:00)
[2016-08-10 03:29] LABS: Hematocrit 26.5 % (37.5-50.1); Hemoglobin 8.8 g/dL (12.9-16.9); Immature Granulocytes % 0.6 % (0-4); Lymphocytes # 0.4 K/mcL (0.6-4.6); Lymphocytes % 3.4 %; Mean Corpuscular HGB Conc 33.2 g/dL (31.6-35.5); Mean Corpuscular Hemoglobin 29.6 pg (28.0-33.3); Mean Corpuscular Volume 89.2 fL (83.0-100.0); Mean Platelet Volume 10.2 fL (9.4-12.4); Monocytes # 0.8 K/mcL (0.0-1.3); Monocytes % 6.3 %; Neutrophils # 11.5 K/mcL (1.6-8.9); Platelet Count 344 K/mcL (140-400); Red Blood Count 2.97 M/mcL (4.19-5.50); Red Cell Distribution Width 13.6 % (11.5-14.5); Segmented Neutrophils % 89.7 %
[2016-08-10 03:34] LABS: Calcium 8.6 mg/dL (8.6-10.8); Potassium 3.9 mEq/L (3.5-4.5)
[2016-08-10 03:38] LABS: INR 2.7; Prothrombin Time 29.7 Seconds (9.4-12.1)
[2016-08-10] MEDS: Ipratropium/Albuterol Neb 3 ML IH SCH ×5 (03:41→19:59)
[2016-08-10] MEDS: Insulin LISPRO 300 UNITS/3 ML VIAL SQ SCH ×5 (04:05→23:52)
[2016-08-10 04:36] LABS: ABG Base Excess 4.6 mEq/L (-2.0 to 3.0); ABG HCO3 29.2 mEQ/L (21-27); ABG Oxygen Saturation 98 % (95-98); ABG PCO2 43 mmHg (35-45); ABG PH 7.44 pH Units (7.32-7.45); ABG PO2 103 mmHg (85-104); ABG TCO2 30.5 mEq/L (20-26); Blood Gas FiO2 30 %
[2016-08-10] MEDS: methylPREDNISolone 125 MG/2 ML VIAL IVP SCH (05:53)
--- NOTE | 2016-08-10 06:41 | Pulmonology Progress Note ---
<Bina Berger - Last Filed: 08/10/16 11:35> Date of Encounter: 08/10/16 Time of Encounter: 06:38 Assessment and Plan (1) ARDS (adult respiratory distress syndrome) Current Visit: Yes Status: Acute Patient presented to the ICU in respiratory distress with tachypnea, tachycardia , diaphoresis and use of accessory muscles of respiration as well as a cough. Arterial blood gases revealed hypoxemia. Patient meets criteria for ARDS: Respiratory symptoms have begun within a week and the patient's clinical symptoms have progressively worsened as patient initially had dyspnea and hypoxemia progressing to acute respiratory failure. However, given symptoms may be due to pneumonia, sepsis, aspiration as patient has not had known trauma. Most likely etiology may be pneumonia. Differential does include acute hypoxemic respiratory failure with bilateral alveolar infiltrates. Geraldine criteria: -patient has bilateral opacities on chest x-ray which are not fully explained by cardiac failure or fluid overload, pleural effusion, lobar collapse, lung collapse or pulmonary nodule; a PaO2/FiO2 ratio of less than 300 patient was initially at 58/.45 = 128.8 ; on PEEP greater than 5 cm of water patient was initially at a PEEP of 10. Stratified as moderate ARDS. Due to FiO2 and PEEP requirement gradually improving over 2 days- Patient was given a breathing trial and was extubated 08/07/16. Initally, patient was tolerating well and was interactive with staff. Patient was on bipap overnight he became hypertensive Appeared uncomfortable and began using accessory muscles with increase tachypnea rate of 30-40 respirations per minute, tachycardia. patient was reintubated 08/08/16. Morning Labs: CBC, BMP, PT, and ABG Scheduled. Bronchioalveolar Lavage Performed 08/08/16: Preliminary results demonstrate no growth after 24 hours : Culture, cell count, Gram stain. Chest CT 08/03/16 11:00 IMPRESSION: Multifocal pneumonia with small pleural effusions. Small mediastinal nodes are seen, likely reactive KUB X-Ray 08/08/16 09:20 IMPRESSION: Gastric tube in the stomach Chest X-Ray 08/09/16 04:00 IMPRESSION: Endotracheal tube has been repositioned and now lies 2.7 cm above the marii. Stable bilateral pulmonary infiltrates with associated small effusions. CT head: pending Patient's risk factor for ARDS was recent pneumonia which puts him at significant risk for a pulmonary source of sepsis. Supportive care: -Fluid balance should be maintained at neutral or negative balance. Will hold supplemental fluids for conservative management of fluids evidence is based on the FACTT trial. D5 half-normal was ordered at a rate of 145 over 4 hours for correction of hypernatremia. Will Re-check BMP for response. -Maintain CVP of less than 4. -Maintain arterial pressure greater than 60. 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 INR today is 2.7. Will Re evaluate INR Tomorrow. Pharmacy to follow warfarin administration. -stress ulcer prophylaxis If patient receives low tidal volume and has a pH of less than 7.15 despite our increase in ventilatory rate - we may consider a bicarbonate infusion. Steroids may be considered as this episode is less than 1 week as of presentation. Will discontinue Solu-Medrol on 08/10/16 and begin oral prednisone 30 mg daily. Antibiotic therapy: Levaquin Started due to only 5 days of therapy and culture neg. Start date: 08/10/16 for 14 d course. d1 of 14. Stop Date: 08/24/16. Results: NEGATIVE: blood culture, sputum culture, urine antigens for Legionella and streptococcal. Palliative care saw patient yesterday on 08/09/16. Family discussed. made patient DNR CCA yesterday. Plan per family is to terminally extubate patient sometime this week probably Wednesday. CPAP trial began at 6:35 AM. Subjective Principal diagnosis: ARDS Interval history: This morning patient is easily arousable however does not follow commands opens eyes and stares. Palliative care came yesterday. Family discussed options and changed him to DNR CCA. Plan is to terminally extubate patient as per family. Today will try a trial of CPAP. As of yesterday fluid balance was + 547 for the day however overall patient is -136. Hypernatremia with elevtaions in BUN and Cr. Objective PUL Vital signs: Last Vital Signs Temp 98.6 F 08/10/16 04:00 Pulse 81 08/10/16 06:00 Resp 23 08/10/16 06:00 BP 158/77 08/10/16 06:00 Pulse Ox 99 08/10/16 06:00 General appearance: no acute distress Eyes: nonicteric ENT: oropharynx moist Mallampati (class): 2 Neck: supple, no lymphadenopathy Effort: normal Auscultation: bilateral: diminished breath sounds, wheezes Cardiovascular: regular rate and rhythm Gastrointestinal: normoactive bowel sounds, soft, non-tender, non-distended Integumentary: other (Diffuse excoriations) Extremities: no cyanosis, pink and warm, pulses normal Musculoskeletal: no deformities pupils equal and round other (Intubated and sedated) Ventilator Settings Ventilator Settings: Ventilator Settings, Last 8 Hours Ventilator Mode A/C Ventilator Mode A/C Ventilator Mode A/C Ventilator Mode A/C Ventilator Mode A/C Ventilator Mode A/C Ventilator Mode A/C Ventilator Mode A/C Ventilator Mode A/C Ventilator Mode A/C Ventilator Mode A/C Ventilator Mode A/C Ventilator Mode A/C Ventilator Tidal Volume 400 Setting Ventilator Tidal Volume 400 Setting Ventilator Tidal Volume 400 Setting Ventilator Tidal Volume 400 Setting Ventilator Tidal Volume 400 Setting Ventilator Tidal Volume 400 Setting Ventilator Tidal Volume 400 Setting Ventilator Tidal Volume 400 Setting Ventilator Tidal Volume 400 Setting Ventilator Tidal Volume 400 Setting Ventilator Tidal Volume 400 Setting Ventilator Tidal Volume 400 Setting Ventilator Tidal Volume 400 Setting Ventilator Respiratory Rate 20 Setting Ventilator Respiratory Rate 20 Setting Ventilator Respiratory Rate 20 Setting Ventilator Respiratory Rate 20 Setting Ventilator Respiratory Rate 20 Setting Ventilator Respiratory Rate 20 Setting Ventilator Respiratory Rate 20 Setting Ventilator Respiratory Rate 20 Setting Ventilator Respiratory Rate 20 Setting Ventilator Respiratory Rate 20 Setting Ventilator Respiratory Rate 20 Setting Ventilator Respiratory Rate 20 Setting Ventilator Respiratory Rate 20 Setting Actual Respiratory Rate 26 Actual Respiratory Rate 26 Actual Respiratory Rate 21 Actual Respiratory Rate 21 Actual Respiratory Rate 20 Actual Respiratory Rate 23 Actual Respiratory Rate 23 Actual Respiratory Rate 21 Actual Respiratory Rate 21 Actual Respiratory Rate 21 Actual Respiratory Rate 20 Positive End Expiratory 8 Pressure Positive End Expiratory 8 Pressure Positive End Expiratory 8 Pressure Positive End Expiratory 8 Pressure Positive End Expiratory 8 Pressure Positive End Expiratory 8 Pressure Positive End Expiratory 8 Pressure Positive End Expiratory 8 Pressure Positive End Expiratory 8 Pressure Positive End Expiratory 8 Pressure Positive End Expiratory 8 Pressure Positive End Expiratory 8 Pressure Positive End Expiratory 8 Pressure Peak Inspiratory Airway 26 Pressure Peak Inspiratory Airway 26 Pressure Peak Inspiratory Airway 31 Pressure Peak Inspiratory Airway 27 Pressure Peak Inspiratory Airway 27 Pressure Peak Inspiratory Airway 29 Pressure Peak Inspiratory Airway 27 Pressure Peak Inspiratory Airway 27 Pressure Peak Inspiratory Airway 27 Pressure Peak Inspiratory Airway 27 Pressure Peak Inspiratory Airway 27 Pressure Peak Inspiratory Airway 30 Pressure Results - Laboratory Findings CBC and BMP: 08/10/16 03:15 08/10/16 03:15 ABG ABG pH 7.44 pH Units (7.32-7.45) 08/10/16 04:25 ABG pCO2 43 mmHg (35-45) 08/10/16 04:25 ABG pO2 103 mmHg (85-104) 08/10/16 04:25 ABG O2 Saturation 98 % (95-98) 08/10/16 04:25 PT/INR, D-dimer PT 29.7 Seconds (9.4-12.1) H 08/10/16 03:15 Abnormal lab findings: Abnormal lab results WBC 12.8 K/mcL (4.3-11.1) H 08/10/16 03:15 RBC 2.97 M/mcL (4.19-5.50) L 08/10/16 03:15 Hgb 8.8 g/dL (12.9-16.9) L 08/10/16 03:15 Hct 26.5 % (37.5-50.1) L 08/10/16 03:15 Neutrophils # 11.5 K/mcL (1.6-8.9) H 08/10/16 03:15 Lymphocytes # 0.4 K/mcL (0.6-4.6) L 08/10/16 03:15 PT 29.7 Seconds (9.4-12.1) H 08/10/16 03:15 APTT 39.1 Seconds (26.0-36.0) H 08/09/16 04:20 ABG HCO3 29.2 mEQ/L (21-27) H 08/10/16 04:25 ABG Total CO2 30.5 mEq/L (20-26) H 08/10/16 04:25 ABG Base Excess 4.6 mEq/L (-2.0 to 3.0) H 08/10/16 04:25 Sodium 147 mEq/L (136-145) H 08/10/16 03:15 Chloride 112 mEq/L (98-109) H 08/10/16 03:15 BUN 66 mg/dL (8-26) H D 08/10/16 03:15 Creatinine 1.98 mg/dL (0.72-1.25) H 08/10/16 03:15 Est GFR ( Amer) 40 (> 60) L 08/10/16 03:15 Est GFR (Non-Af Amer) 33 (> 60) L 08/10/16 03:15 BUN/Creatinine Ratio 33 (6-26) H 08/10/16 03:15 Glucose 328 mg/dL (70-99) H 08/10/16 03:15 POC Glucose 350 (58-89) H 08/10/16 03:51 Calculated Osmolality 336 (280-300) H 08/10/16 03:15 Alkaline Phosphatase 178 Units/L (38-126) H 08/01/16 14:16 Albumin 2.9 g/dL (3.5-5.0) L 08/01/16 14:16 Globulin 5.3 g/dL (2.4-3.5) H 08/01/16 14:16 Albumin/Globulin Ratio 0.5 (1.1-2.2) L 08/01/16 14:16 TSH 6.026 mcIU/mL (0.350-4.840) H 08/04/16 04:16 Vancomycin Trough 20.5 mcg/mL (10-20) H* 08/04/16 04:16 - Microbiology Findings Microbiology Findings: Microbiology, Last 48 Hours 08/08/16 08:27 Body Fluid Culture - Preliminary Other-Specify in Comments - Clinical Findings Intake & Output: Intake & Output 08/09/16 08/09/16 08/10/16 15:59 23:59 07:59 Intake Total 200 / 200 1094 / 1094 622 / 622 Output Total 175 / 175 200 / 200 125 / 125 Balance 894 / 894 497 / 497 Consult Discharge Plan - Plan Referrals: Silas Shah MD [Primary Care Provider] - <Naty Emanuel - Last Filed: 08/10/16 12:24> Objective PUL Vital signs: Last Vital Signs Temp 98.0 F 08/10/16 07:35 Pulse 60 08/10/16 11:00 Resp 21 08/10/16 11:09 BP 172/79 08/10/16 11:00 Pulse Ox 98 08/10/16 11:09 Ventilator Settings Ventilator Settings: Ventilator Settings, Last 8 Hours Ventilator Mode CPAP Ventilator Mode CPAP Ventilator Mode CPAP Ventilator Mode CPAP Ventilator Mode CPAP Ventilator Mode CPAP Ventilator Mode CPAP Ventilator Mode CPAP Ventilator Mode CPAP Ventilator Mode A/C Ventilator Mode A/C Ventilator Mode A/C Ventilator Mode A/C Ventilator Tidal Volume 400 Setting Ventilator Tidal Volume 400 Setting Ventilator Tidal Volume 400 Setting Ventilator Tidal Volume 400 Setting Ventilator Respiratory Rate 20 Setting Ventilator Respiratory Rate 20 Setting Ventilator Respiratory Rate 20 Setting Ventilator Respiratory Rate 20 Setting Actual Respiratory Rate 22 Actual Respiratory Rate 21 Actual Respiratory Rate 22 Actual Respiratory Rate 22 Actual Respiratory Rate 27 Actual Respiratory Rate 26 Actual Respiratory Rate 29 Actual Respiratory Rate 29 Actual Respiratory Rate 29 Actual Respiratory Rate 26 Actual Respiratory Rate 26 Positive End Expiratory 5 Pressure Positive End Expiratory 5 Pressure Positive End Expiratory 5 Pressure Positive End Expiratory 5 Pressure Positive End Expiratory 5 Pressure Positive End Expiratory 8 Pressure Positive End Expiratory 8 Pressure Positive End Expiratory 8 Pressure Positive End Expiratory 8 Pressure Positive End Expiratory 8 Pressure Positive End Expiratory 8 Pressure Positive End Expiratory 8 Pressure Positive End Expiratory 8 Pressure Peak Inspiratory Airway 13 Pressure Peak Inspiratory Airway 13 Pressure Peak Inspiratory Airway 14 Pressure Peak Inspiratory Airway 14 Pressure Peak Inspiratory Airway 14 Pressure Peak Inspiratory Airway 13 Pressure Peak Inspiratory Airway 17 Pressure Peak Inspiratory Airway 17 Pressure Peak Inspiratory Airway 17 Pressure Peak Inspiratory Airway 26 Pressure Peak Inspiratory Airway 26 Pressure Peak Inspiratory Airway 31 Pressure Results - Laboratory Findings CBC and BMP: 08/10/16 03:15 08/10/16 03:15 ABG ABG pH 7.44 pH Units (7.32-7.45) 08/10/16 04:25 ABG pCO2 43 mmHg (35-45) 08/10/16 04:25 ABG pO2 103 mmHg (85-104) 08/10/16 04:25 ABG O2 Saturation 98 % (95-98) 08/10/16 04:25 PT/INR, D-dimer PT 29.7 Seconds (9.4-12.1) H 08/10/16 03:15 Abnormal lab findings: Abnormal lab results WBC 12.8 K/mcL (4.3-11.1) H 08/10/16 03:15 RBC 2.97 M/mcL (4.19-5.50) L 08/10/16 03:15 Hgb 8.8 g/dL (12.9-16.9) L 08/10/16 03:15 Hct 26.5 % (37.5-50.1) L 08/10/16 03:15 Neutrophils # 11.5 K/mcL (1.6-8.9) H 08/10/16 03:15 Lymphocytes # 0.4 K/mcL (0.6-4.6) L 08/10/16 03:15 PT 29.7 Seconds (9.4-12.1) H 08/10/16 03:15 APTT 39.1 Seconds (26.0-36.0) H 08/09/16 04:20 ABG HCO3 29.2 mEQ/L (21-27) H 08/10/16 04:25 ABG Total CO2 30.5 mEq/L (20-26) H 08/10/16 04:25 ABG Base Excess 4.6 mEq/L (-2.0 to 3.0) H 08/10/16 04:25 Sodium 147 mEq/L (136-145) H 08/10/16 03:15 Chloride 112 mEq/L (98-109) H 08/10/16 03:15 BUN 66 mg/dL (8-26) H D 08/10/16 03:15 Creatinine 1.98 mg/dL (0.72-1.25) H 08/10/16 03:15 Est GFR ( Amer) 40 (> 60) L 08/10/16 03:15 Est GFR (Non-Af Amer) 33 (> 60) L 08/10/16 03:15 BUN/Creatinine Ratio 33 (6-26) H 08/10/16 03:15 Glucose 328 mg/dL (70-99) H 08/10/16 03:15 POC Glucose 166 (58-89) H 08/10/16 11:25 Calculated Osmolality 336 (280-300) H 08/10/16 03:15 Alkaline Phosphatase 178 Units/L (38-126) H 08/01/16 14:16 Albumin 2.9 g/dL (3.5-5.0) L 08/01/16 14:16 Globulin 5.3 g/dL (2.4-3.5) H 08/01/16 14:16 Albumin/Globulin Ratio 0.5 (1.1-2.2) L 08/01/16 14:16 TSH 6.026 mcIU/mL (0.350-4.840) H 08/04/16 04:16 Vancomycin Trough 20.5 mcg/mL (10-20) H* 08/04/16 04:16 - Microbiology Findings Microbiology Findings: Microbiology, Last 48 Hours 08/08/16 08:27 Body Fluid Culture - Preliminary Other-Specify in Comments - Clinical Findings Intake & Output: Intake & Output 08/09/16 08/10/16 08/10/16 23:59 07:59 15:59 Intake Total 1094 / 1094 672 / 672 175 / 175 Output Total 200 / 200 200 / 200 180 / 180 Balance 894 / 894 472 / 472 -5 / -5 - Attending Attestation I examined this patient and my medical decision-making was reviewed with the [employer]W MEMBER/PA/Advanced Practice Nurse/Resident Physician. I agree with the documented findings, disposition and treatment plan as described except to the extent set forth below. Patient seen and examined. Labs, radiology, chart personally reviewed. Agree with resident's history and physical, assessment, plan with following comments: ROD TAPE OPERATOR: Patient does not follows commands, will need to image his brain and also correct hypernatremia Pulmonary: Acceptable oxygenation and ventilation. Palliative care to follow- up with family regarding reintubation. I suspect patient respiratory status would worsen after extubation mainly due to mental status change and perhaps not been able to clear his secretions. Otherwise we will reduce steroid use and hopefully that will keep his blood glucose under control. I feel patient might need to be on antibiotics even if his culture are negatives. Continue vent support for now for his acute respiratory failure. Cardiovascular: Hypertension, suspect this is from the discomfort during the trial. GI: Nutrition per dietary and GI prophylaxis per routine Heme: DVT prophylaxis per routine ID: Pharmacy to check total number of days patient has been on antibiotics, I'd like to see patient to complete at least 8 days. Renal; urine out put and renal funtion reviewed. Hypernatremia and to correct that with IVF. Endorcine: blood glucose is monitored Lines: all lines checked and no evidence of infections Skin: skin care to prevent pressure ulcers per nursing routine care I spent 35 min of Critical Care time with this patient. It involved decision making of high complexity to assess, manipulate, and support vital organ system failure and/or to prevent further life threatening deterioration of the patient' s condition. The time involved in the performance of separately reportable procedures was not counted toward critical care time.
[2016-08-10] MEDS: Simethicone 80 MG TAB.CHEW PO SCH ×3 (08:01→20:19)
[2016-08-10] MEDS: Pantoprazole 40 MG VIAL IVP SCH (08:01)
[2016-08-10] MEDS: Cholecalciferol (D-3) 1,000 UNIT TABLET PO SCH (08:01)
[2016-08-10] MEDS: Docusate Oral Soln 100 MG/10 ML UDC PO SCH ×2 (08:01→20:19)
[2016-08-10] MEDS: Magnesium Oxide 400 MG TABLET PO SCH (08:02)
[2016-08-10] MEDS: Chlorhexidine Rinse 15 ML MOUTHWASH MM SCH ×2 (08:02→20:19)
[2016-08-10] MEDS ORDERED: predniSONE 20 MG TABLET PO SCH (09:00)
[2016-08-10] MEDS ORDERED: Dextrose Gel 15 GM PO PRN ×2 (09:23)
[2016-08-10] MEDS ORDERED: D5% in Water 1,000 ML IV PRN (09:23)
[2016-08-10] MEDS ORDERED: *HR* Dextrose 50 % in Water (Syg) 50 ML SYRINGE IVP PRN (09:23)
[2016-08-10] MEDS: FentaNYL (PF) 1,000 MCG in 0.9 % Sodium Chloride 80 ML IVC SCH ×2 (11:55→20:14)
[2016-08-10] MEDS ORDERED: Levofloxacin 750 MG/150 ML 750 MG/150 ML BAG IVPB SCH (12:00)
[2016-08-10] MEDS: D5% in 0.45% NACL 1,000 ML IVC SCH ×3 (12:07→23:51)
--- NOTE | 2016-08-10 13:06 | Palliative Progress Note ---
Date of Encounter: 08/10/16 Time of Encounter: 11:30 - Assessment and plan (1) Anxiety Current Visit: Yes Status: Acute Assessment and plan: Lorazepam as needed. Mr. Cummins was on sedation prior to SBT, but has been off since SBT started. He is tolerating well. Continue to monitor. (2) Generalized pain Current Visit: Yes Status: Acute Assessment and plan: Mr. Cummins is currently on a Fentanyl drip per ICU protocol. His spouse reports he struggles with chronic back pain related to arthritis. Based on his home medication list, he is not on any prison medications to manage his arthritis pain. Will follow. (3) Goals of care, counseling/discussion Current Visit: Yes Status: Acute Assessment and plan: Re-evaluated goals of care with Mr. Cummins's spouse-Yenni. She continues to support comfort as a goal for him and states that he would not want therapist radiation ventilator support or a tracheostomy. We discussed his current physical assessment and diagnostic testing. Mr. Cummins has been tolerating SBT since 629. His spouse would like for his son to be present when he is extubated. Current plans are to meet 08/11/16 at 1200. Discussed with the resident and primary nurse. (4) Acute and chronic respiratory failure with hypoxia Current Visit: Yes Status: Acute Assessment and plan: management per ICU team. - Time Spent With Patient Total time spent is greater than 50% in coordination of care (as documented) at patient's floor/unit and/or counseling patient: - Subjective Interval history: Mr. Cummins remains in the ICU, intubated and on mechanical ventilation. He has been tolerating SBT since 629. Results of head CT are pending. Awaiting arrival of family members to discuss plan/goals of care. - Constitutional Vitals: Abnormal lab results WBC 12.8 K/mcL (4.3-11.1) H 08/10/16 03:15 RBC 2.97 M/mcL (4.19-5.50) L 08/10/16 03:15 Hgb 8.8 g/dL (12.9-16.9) L 08/10/16 03:15 Hct 26.5 % (37.5-50.1) L 08/10/16 03:15 Neutrophils # 11.5 K/mcL (1.6-8.9) H 08/10/16 03:15 Lymphocytes # 0.4 K/mcL (0.6-4.6) L 08/10/16 03:15 PT 29.7 Seconds (9.4-12.1) H 08/10/16 03:15 APTT 39.1 Seconds (26.0-36.0) H 08/09/16 04:20 ABG HCO3 29.2 mEQ/L (21-27) H 08/10/16 04:25 ABG Total CO2 30.5 mEq/L (20-26) H 08/10/16 04:25 ABG Base Excess 4.6 mEq/L (-2.0 to 3.0) H 08/10/16 04:25 Sodium 147 mEq/L (136-145) H 08/10/16 03:15 Chloride 112 mEq/L (98-109) H 08/10/16 03:15 BUN 66 mg/dL (8-26) H D 08/10/16 03:15 Creatinine 1.98 mg/dL (0.72-1.25) H 08/10/16 03:15 Est GFR ( Amer) 40 (> 60) L 08/10/16 03:15 Est GFR (Non-Af Amer) 33 (> 60) L 08/10/16 03:15 BUN/Creatinine Ratio 33 (6-26) H 08/10/16 03:15 Glucose 328 mg/dL (70-99) H 08/10/16 03:15 POC Glucose 166 (58-89) H 08/10/16 11:25 Calculated Osmolality 336 (280-300) H 08/10/16 03:15 Alkaline Phosphatase 178 Units/L (38-126) H 08/01/16 14:16 Albumin 2.9 g/dL (3.5-5.0) L 08/01/16 14:16 Globulin 5.3 g/dL (2.4-3.5) H 08/01/16 14:16 Albumin/Globulin Ratio 0.5 (1.1-2.2) L 08/01/16 14:16 TSH 6.026 mcIU/mL (0.350-4.840) H 08/04/16 04:16 Vancomycin Trough 20.5 mcg/mL (10-20) H* 08/04/16 04:16 General appearance: Absent: cooperative, no acute distress Exam: 76 year old male patient, intubated on mechanical ventilation. Opens eyes, but unable to follow commands. - Eye Additional comments: opens eyes occasionally - ENT ENT exam: Present: mucous membranes moist - Respiratory Respiratory exam: Present: decreased breath sounds Additional comments: intubated on mechanical ventilation, on spontaneous - Cardiovascular Cardiovascular exam: Present: irregular rhythm. Absent: tachycardia - GI/Abdominal GI/Abdominal exam: Present: normal bowel sounds, soft. Absent: guarding, tenderness - Additional comments: escalona catheter intact - Extremities Exam Extremities exam: Present: normal inspection. Absent: pedal edema - Neurological Exam Neurological exam: Absent: alert (opens eyes occasionally, unable to follow commands. ) - Psychiatric Psychiatric exam: Absent: agitated, anxious - Skin Skin exam: Present: dry, warm Palliative Quality Palliative Quality: Screen for Code Status: Yes, Screen for Goals of Care: Yes, Screen for Pain: Yes, If Pain Regimen Started, Initiate Bowel Regimen: Yes, Screen for Nausea/Vomitting: NA Code Status: 08/01/16 14:30 FULL [Resuscitation Status: Active] [RES] Routine Comment: Resuscitation Status: Full Code 08/09/16 12:45 DNR [Resuscitation Status: Active] [RES] Routine Comment: Resuscitation Status: DNR-Comfort Care-Arrest - Labs CBC & Chem 7: 08/10/16 03:15 08/10/16 03:15 Labs: Laboratory Results - last 24 hr 08/09/16 08/09/16 08/10/16 18:33 23:03 03:15 WBC RBC Hgb Hct MCV MCH MCHC RDW Plt Count MPV Immature Gran % Seg Neutrophils % Lymphocytes % Monocytes % Eosinophils % Basophils % Neutrophils # Lymphocytes # Monocytes # Eosinophils # Basophils # PT 29.7 H INR 2.7 ABG pH ABG pCO2 ABG pO2 ABG HCO3 ABG Total CO2 ABG O2 Saturation ABG Base Excess Blood Gas Modality Inspired O2 Sodium Potassium Chloride Carbon Dioxide BUN Creatinine Est GFR ( Amer) Est GFR (Non-Af Amer) BUN/Creatinine Ratio Glucose POC Glucose 332 H 380 H Calculated Osmolality Calcium 08/10/16 08/10/16 08/10/16 03:15 03:15 03:51 WBC 12.8 H RBC 2.97 L Hgb 8.8 L Hct 26.5 L MCV 89.2 MCH 29.6 MCHC 33.2 RDW 13.6 Plt Count 344 MPV 10.2 Immature Gran % 0.6 Seg Neutrophils % 89.7 Lymphocytes % 3.4 Monocytes % 6.3 Eosinophils % 0.0 Basophils % 0.0 Neutrophils # 11.5 H Lymphocytes # 0.4 L Monocytes # 0.8 Eosinophils # 0.0 Basophils # 0.0 PT INR ABG pH ABG pCO2 ABG pO2 ABG HCO3 ABG Total CO2 ABG O2 Saturation ABG Base Excess Blood Gas Modality Inspired O2 Sodium 147 H Potassium 3.9 Chloride 112 H Carbon Dioxide 25 BUN 66 H D Creatinine 1.98 H Est GFR ( Amer) 40 L Est GFR (Non-Af Amer) 33 L BUN/Creatinine Ratio 33 H Glucose 328 H POC Glucose 350 H Calculated Osmolality 336 H Calcium 8.6 08/10/16 08/10/16 08/10/16 04:25 09:22 11:25 WBC RBC Hgb Hct MCV MCH MCHC RDW Plt Count MPV Immature Gran % Seg Neutrophils % Lymphocytes % Monocytes % Eosinophils % Basophils % Neutrophils # Lymphocytes # Monocytes # Eosinophils # Basophils # PT INR ABG pH 7.44 ABG pCO2 43 ABG pO2 103 ABG HCO3 29.2 H ABG Total CO2 30.5 H ABG O2 Saturation 98 ABG Base Excess 4.6 H Blood Gas Modality ASSIST CONTROL Inspired O2 30 Sodium Potassium Chloride Carbon Dioxide BUN Creatinine Est GFR ( Amer) Est GFR (Non-Af Amer) BUN/Creatinine Ratio Glucose POC Glucose 171 H 166 H Calculated Osmolality Calcium - Impressions Impressions Head CT 08/10/16 11:00 IMPRESSION: No acute intracranial abnormality. D/ / Everardo Emerson MD / Everardo Emerson MD Interpreting Provider: Everardo Emerson MD - ABG Interpretation ABG results: ABG ABG pH 7.44 pH Units (7.32-7.45) 08/10/16 04:25 ABG pCO2 43 mmHg (35-45) 08/10/16 04:25 ABG pO2 103 mmHg (85-104) 08/10/16 04:25 ABG O2 Saturation 98 % (95-98) 08/10/16 04:25 PT/INR, D-dimer PT 29.7 Seconds (9.4-12.1) H 08/10/16 03:15 Consult Discharge Plan - Plan Referrals: Silas Shah MD [Primary Care Provider] -
[2016-08-10 15:48] LABS: Calcium 8.4 mg/dL (8.6-10.8); Potassium 3.8 mEq/L (3.5-4.5)
[2016-08-10] MEDS ORDERED: *HR* Warfarin 2.5 MG TABLET PO ONE (18:00)
[2016-08-10] MEDS ORDERED: Insulin DETEMIR 100 UNIT/ML X5UNITS SQ SCH (21:00)
[2016-08-11] MEDS: Ipratropium/Albuterol Neb 3 ML IH SCH ×6 (00:08→20:21)
[2016-08-11] MEDS: FentaNYL (PF) 1,000 MCG in 0.9 % Sodium Chloride 80 ML IVC SCH ×2 (01:25→12:55)
[2016-08-11] MEDS: Insulin LISPRO 300 UNITS/3 ML VIAL SQ SCH ×5 (04:09→22:31)
[2016-08-11 04:24] LABS: INR 3.3; Prothrombin Time 36.4 Seconds (9.4-12.1)
[2016-08-11 04:32] LABS: Calcium 8.2 mg/dL (8.6-10.8); Potassium 3.7 mEq/L (3.5-4.5)
[2016-08-11 04:33] LABS: Basophils % 0.1 %; Hematocrit 26.9 % (37.5-50.1); Hemoglobin 8.7 g/dL (12.9-16.9); Immature Granulocytes % 0.8 % (0-4); Lymphocytes # 0.9 K/mcL (0.6-4.6); Lymphocytes % 6.8 %; Mean Corpuscular HGB Conc 32.3 g/dL (31.6-35.5); Mean Corpuscular Hemoglobin 29.6 pg (28.0-33.3); Mean Corpuscular Volume 91.5 fL (83.0-100.0); Mean Platelet Volume 10.4 fL (9.4-12.4); Monocytes # 1.4 K/mcL (0.0-1.3); Monocytes % 10.6 %; Neutrophils # 10.6 K/mcL (1.6-8.9); Platelet Count 294 K/mcL (140-400); Red Blood Count 2.94 M/mcL (4.19-5.50); Red Cell Distribution Width 13.6 % (11.5-14.5); Segmented Neutrophils % 81.7 %
--- NOTE | 2016-08-11 05:17 | Pulmonology Progress Note ---
<Bina Berger - Last Filed: 08/11/16 10:38> Date of Encounter: 08/11/16 Time of Encounter: 05:17 Assessment and Plan (1) ARDS (adult respiratory distress syndrome) Current Visit: Yes Status: Acute Patient presented to the ICU in respiratory distress with tachypnea, tachycardia , diaphoresis and use of accessory muscles of respiration as well as a cough. Arterial blood gases revealed hypoxemia. Patient meets criteria for ARDS: Respiratory symptoms have begun within a week and the patient's clinical symptoms have progressively worsened as patient initially had dyspnea and hypoxemia progressing to acute respiratory failure. However, given symptoms may be due to pneumonia, sepsis, aspiration as patient has not had known trauma. Most likely etiology may be pneumonia. Differential does include acute hypoxemic respiratory failure with bilateral alveolar infiltrates. [place] criteria: -patient has bilateral opacities on chest x-ray which are not fully explained by cardiac failure or fluid overload, pleural effusion, lobar collapse, lung collapse or pulmonary nodule; a PaO2/FiO2 ratio of less than 300 patient was initially at 58/.45 = 128.8 ; on PEEP greater than 5 cm of water patient was initially at a PEEP of 10. Stratified as moderate ARDS. Due to FiO2 and PEEP requirement gradually improving over 2 days- Patient was given a breathing trial and was extubated 08/07/16. Initally, patient was tolerating well and was interactive with staff. Patient was on bipap overnight he became hypertensive Appeared uncomfortable and began using accessory muscles with increase tachypnea rate of 30-40 respirations per minute, tachycardia. patient was reintubated 08/08/16. Chest CT 08/03/16 11:00 IMPRESSION: Multifocal pneumonia with small pleural effusions. Small mediastinal nodes are seen, likely reactive Head CT 08/10/16 11:00 IMPRESSION: No acute intracranial abnormality. Chest X-Ray 08/11/16 07:36 IMPRESSION: Endotracheal tube tip in the right mainstem bronchus. The tube should be retracted by approximately 3 cm. Chest X-Ray 08/11/16 08:15 IMPRESSION: Status post repositioning of endotracheal tube with tip now 3 cm above the marii. Otherwise stable findings. KUB X-Ray 08/11/16 08:15 IMPRESSION: Enteric tube in place, tip likely within the distal stomach. Patient's risk factor for ARDS was recent pneumonia which puts him at significant risk for a pulmonary source of sepsis. Supportive care: -Fluid balance should be maintained at neutral or negative balance. Will hold supplemental fluids for conservative management of fluids evidence is based on the FACTT trial. -Maintain CVP of less than 4. -Maintain arterial pressure greater than 60. 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 INR today is 2.7. Will Re evaluate INR Tomorrow. Pharmacy to follow warfarin administration. -stress ulcer prophylaxis If patient receives low tidal volume and has a pH of less than 7.15 despite our increase in ventilatory rate - we may consider a bicarbonate infusion. Steroids may be considered as this episode is less than 1 week as of presentation. oral prednisone 30 mg daily. Antibiotic therapy: Levaquin Started due to only 5 days of therapy and culture neg. Start date: 08/10/16 for 14 d course. d2 of 14. Stop Date: 08/24/16. Results: NEGATIVE: blood culture, sputum culture, urine antigens for Legionella and streptococcal. Bronchioalveolar Lavage Performed 08/08/16: Preliminary results demonstrate no growth after 24 hours : Culture, cell count, Gram stain. Morning Labs: CBC, BMP, PT, and ABG Scheduled. Palliative care saw patient and family on 08/09/16. and family discussed and consensus was made to make patient DNR CCA. Plan per family is to terminally extubate patient today 08/11/16 after family meeting at 14:00. Patient switched to Precedex. CPAP trial. Subjective Principal diagnosis: ARDS Interval history: Overnight patient had multiple episodes of desaturation down into the low 80s and 90s and his peak inspiratory pressure dropped to 10. Respiratory investigated and noted the endotracheal tube to be at the 21 and was advanced to the 23. Tubing replaced and ET tube resecured. There was some concern for a leak given the peak inspiratory pressure however no leak was found. FiO2 was changed to 35. This morning patient is easily arousable however does not follow commands opens eyes and stares. Repeat chest x-ray this morning demonstrated that the ET tube was in the right mainstem. ET tube was retracted 2 cm back to the 21. Plan is to terminally extubate patient as per family. Today will try a trial of CPAP. Objective PUL Vital signs: Last Vital Signs Temp 97.4 F L 08/11/16 04:00 Pulse 82 08/11/16 04:00 Resp 14 08/11/16 04:30 BP 171/97 08/11/16 04:30 Pulse Ox 93 L 08/11/16 04:30 General appearance: no acute distress Eyes: nonicteric ENT: oropharynx moist Mallampati (class): 2 Neck: supple, no lymphadenopathy Effort: normal Auscultation: bilateral: diminished breath sounds, wheezes Cardiovascular: irregular rhythm, PVC's noted Gastrointestinal: normoactive bowel sounds, soft, non-tender, non-distended Integumentary: other (Diffuse excoriations at various stages of healing) Extremities: no cyanosis, pink and warm, pulses normal Musculoskeletal: no deformities pupils equal and round other (Intubated and sedated) Ventilator Settings Ventilator Settings: Ventilator Settings, Last 8 Hours Ventilator Mode VC+ Ventilator Mode VC+ Ventilator Mode VC+ Ventilator Mode VC+ Ventilator Mode VC+ Ventilator Mode VC+ Ventilator Mode VC+ Ventilator Mode VC+ Ventilator Mode VC+ Ventilator Mode VC+ Ventilator Mode VC+ Ventilator Mode VC+ Ventilator Tidal Volume 400 Setting Ventilator Tidal Volume 400 Setting Ventilator Tidal Volume 400 Setting Ventilator Tidal Volume 400 Setting Ventilator Tidal Volume 400 Setting Ventilator Tidal Volume 400 Setting Ventilator Tidal Volume 400 Setting Ventilator Tidal Volume 400 Setting Ventilator Tidal Volume 400 Setting Ventilator Tidal Volume 400 Setting Ventilator Tidal Volume 400 Setting Ventilator Tidal Volume 400 Setting Ventilator Respiratory Rate 14 Setting Ventilator Respiratory Rate 14 Setting Ventilator Respiratory Rate 14 Setting Ventilator Respiratory Rate 14 Setting Ventilator Respiratory Rate 14 Setting Ventilator Respiratory Rate 14 Setting Ventilator Respiratory Rate 14 Setting Ventilator Respiratory Rate 14 Setting Ventilator Respiratory Rate 14 Setting Ventilator Respiratory Rate 14 Setting Ventilator Respiratory Rate 14 Setting Ventilator Respiratory Rate 14 Setting Actual Respiratory Rate 24 Actual Respiratory Rate 16 Actual Respiratory Rate 20 Actual Respiratory Rate 21 Actual Respiratory Rate 22 Actual Respiratory Rate 21 Actual Respiratory Rate 22 Actual Respiratory Rate 23 Actual Respiratory Rate 22 Actual Respiratory Rate 22 Actual Respiratory Rate 19 Actual Respiratory Rate 18 Positive End Expiratory 5 Pressure Positive End Expiratory 5 Pressure Positive End Expiratory 5 Pressure Positive End Expiratory 5 Pressure Positive End Expiratory 5 Pressure Positive End Expiratory 5 Pressure Positive End Expiratory 5 Pressure Positive End Expiratory 5 Pressure Positive End Expiratory 5 Pressure Positive End Expiratory 5 Pressure Positive End Expiratory 5 Pressure Peak Inspiratory Airway 12 Pressure Peak Inspiratory Airway 10 Pressure Peak Inspiratory Airway 13 Pressure Peak Inspiratory Airway 17 Pressure Peak Inspiratory Airway 13 Pressure Peak Inspiratory Airway 16 Pressure Peak Inspiratory Airway 16 Pressure Peak Inspiratory Airway 17 Pressure Peak Inspiratory Airway 17 Pressure Peak Inspiratory Airway 19 Pressure Peak Inspiratory Airway 19 Pressure Results - Laboratory Findings CBC and BMP: 08/11/16 04:04 08/11/16 04:04 ABG ABG pH 7.44 pH Units (7.32-7.45) 08/10/16 04:25 ABG pCO2 43 mmHg (35-45) 08/10/16 04:25 ABG pO2 103 mmHg (85-104) 08/10/16 04:25 ABG O2 Saturation 98 % (95-98) 08/10/16 04:25 PT/INR, D-dimer PT 36.4 Seconds (9.4-12.1) H 08/11/16 04:04 Abnormal lab findings: Abnormal lab results WBC 13.0 K/mcL (4.3-11.1) H 08/11/16 04:04 RBC 2.94 M/mcL (4.19-5.50) L 08/11/16 04:04 Hgb 8.7 g/dL (12.9-16.9) L 08/11/16 04:04 Hct 26.9 % (37.5-50.1) L 08/11/16 04:04 Neutrophils # 10.6 K/mcL (1.6-8.9) H 08/11/16 04:04 Monocytes # 1.4 K/mcL (0.0-1.3) H 08/11/16 04:04 PT 36.4 Seconds (9.4-12.1) H 08/11/16 04:04 APTT 39.1 Seconds (26.0-36.0) H 08/09/16 04:20 ABG HCO3 29.2 mEQ/L (21-27) H 08/10/16 04:25 ABG Total CO2 30.5 mEq/L (20-26) H 08/10/16 04:25 ABG Base Excess 4.6 mEq/L (-2.0 to 3.0) H 08/10/16 04:25 Chloride 112 mEq/L (98-109) H 08/11/16 04:04 BUN 65 mg/dL (8-26) H 08/11/16 04:04 Creatinine 1.54 mg/dL (0.72-1.25) H 08/11/16 04:04 Est GFR ( Amer) 53 (> 60) L 08/11/16 04:04 Est GFR (Non-Af Amer) 44 (> 60) L 08/11/16 04:04 BUN/Creatinine Ratio 42 (6-26) H 08/11/16 04:04 Glucose 168 mg/dL (70-99) H 08/11/16 04:04 POC Glucose 185 (58-89) H 08/11/16 03:52 Calculated Osmolality 323 (280-300) H 08/11/16 04:04 Calcium 8.2 mg/dL (8.6-10.8) L 08/11/16 04:04 Alkaline Phosphatase 178 Units/L (38-126) H 08/01/16 14:16 Albumin 2.9 g/dL (3.5-5.0) L 08/01/16 14:16 Globulin 5.3 g/dL (2.4-3.5) H 08/01/16 14:16 Albumin/Globulin Ratio 0.5 (1.1-2.2) L 08/01/16 14:16 TSH 6.026 mcIU/mL (0.350-4.840) H 08/04/16 04:16 Vancomycin Trough 20.5 mcg/mL (10-20) H* 08/04/16 04:16 - Microbiology Findings Microbiology Findings: Microbiology, Last 48 Hours 08/08/16 08:27 Body Fluid Culture - Preliminary Other-Specify in Comments - Clinical Findings Intake & Output: Intake & Output 08/10/16 08/10/16 08/11/16 15:59 23:59 07:59 Intake Total 525 / 525 1400 / 1400 474 / 474 Output Total 380 / 380 200 / 200 300 / 300 Balance 145 / 145 1200 / 1200 174 / 174 Weight 73.028 kg Consult Discharge Plan - Plan Referrals: Silas Shah MD [Primary Care Provider] - <Naty Emanuel - Last Filed: 08/11/16 17:16> Objective PUL Vital signs: Last Vital Signs Temp 97.7 F 08/11/16 07:20 Pulse 91 08/11/16 16:00 Resp 36 08/11/16 16:00 BP 186/70 08/11/16 16:00 Pulse Ox 90 L 08/11/16 16:00 Ventilator Settings Ventilator Settings: Ventilator Settings, Last 8 Hours Ventilator Mode CPAP Ventilator Mode VC+ Ventilator Mode VC+ Ventilator Mode VC+ Ventilator Mode VC+ Ventilator Mode VC+ Ventilator Tidal Volume 400 Setting Ventilator Tidal Volume 400 Setting Ventilator Tidal Volume 400 Setting Ventilator Tidal Volume 400 Setting Ventilator Tidal Volume 400 Setting Ventilator Tidal Volume 400 Setting Ventilator Respiratory Rate 14 Setting Ventilator Respiratory Rate 14 Setting Ventilator Respiratory Rate 14 Setting Ventilator Respiratory Rate 14 Setting Ventilator Respiratory Rate 14 Setting Ventilator Respiratory Rate 14 Setting Actual Respiratory Rate 22 Actual Respiratory Rate 14 Actual Respiratory Rate 18 Actual Respiratory Rate 18 Actual Respiratory Rate 18 Actual Respiratory Rate 21 Positive End Expiratory 5 Pressure Positive End Expiratory 5 Pressure Positive End Expiratory 5 Pressure Positive End Expiratory 5 Pressure Positive End Expiratory 5 Pressure Positive End Expiratory 5 Pressure Peak Inspiratory Airway 10 Pressure Peak Inspiratory Airway 26 Pressure Peak Inspiratory Airway 11 Pressure Peak Inspiratory Airway 11 Pressure Peak Inspiratory Airway 27 Pressure Results - Laboratory Findings CBC and BMP: 08/11/16 04:04 08/11/16 04:04 ABG ABG pH 7.40 pH Units (7.32-7.45) 08/11/16 05:03 ABG pCO2 48 mmHg (35-45) H 08/11/16 05:03 ABG pO2 65 mmHg (85-104) L 08/11/16 05:03 ABG O2 Saturation 92 % (95-98) L 08/11/16 05:03 PT/INR, D-dimer PT 36.4 Seconds (9.4-12.1) H 08/11/16 04:04 Abnormal lab findings: Abnormal lab results WBC 13.0 K/mcL (4.3-11.1) H 08/11/16 04:04 RBC 2.94 M/mcL (4.19-5.50) L 08/11/16 04:04 Hgb 8.7 g/dL (12.9-16.9) L 08/11/16 04:04 Hct 26.9 % (37.5-50.1) L 08/11/16 04:04 Neutrophils # 10.6 K/mcL (1.6-8.9) H 08/11/16 04:04 Monocytes # 1.4 K/mcL (0.0-1.3) H 08/11/16 04:04 PT 36.4 Seconds (9.4-12.1) H 08/11/16 04:04 APTT 39.1 Seconds (26.0-36.0) H 08/09/16 04:20 ABG pCO2 48 mmHg (35-45) H 08/11/16 05:03 ABG pO2 65 mmHg (85-104) L 08/11/16 05:03 ABG HCO3 29.7 mEQ/L (21-27) H 08/11/16 05:03 ABG Total CO2 31.2 mEq/L (20-26) H 08/11/16 05:03 ABG O2 Saturation 92 % (95-98) L 08/11/16 05:03 ABG Base Excess 4.3 mEq/L (-2.0 to 3.0) H 08/11/16 05:03 Chloride 112 mEq/L (98-109) H 08/11/16 04:04 BUN 65 mg/dL (8-26) H 08/11/16 04:04 Creatinine 1.54 mg/dL (0.72-1.25) H 08/11/16 04:04 Est GFR ( Amer) 53 (> 60) L 08/11/16 04:04 Est GFR (Non-Af Amer) 44 (> 60) L 08/11/16 04:04 BUN/Creatinine Ratio 42 (6-26) H 08/11/16 04:04 Glucose 168 mg/dL (70-99) H 08/11/16 04:04 POC Glucose 140 (58-89) H 08/11/16 15:22 Calculated Osmolality 323 (280-300) H 08/11/16 04:04 Calcium 8.2 mg/dL (8.6-10.8) L 08/11/16 04:04 Alkaline Phosphatase 178 Units/L (38-126) H 08/01/16 14:16 Albumin 2.9 g/dL (3.5-5.0) L 08/01/16 14:16 Globulin 5.3 g/dL (2.4-3.5) H 08/01/16 14:16 Albumin/Globulin Ratio 0.5 (1.1-2.2) L 08/01/16 14:16 TSH 6.026 mcIU/mL (0.350-4.840) H 08/04/16 04:16 Vancomycin Trough 20.5 mcg/mL (10-20) H* 08/04/16 04:16 - Microbiology Findings Microbiology Findings: Microbiology, Last 48 Hours 08/08/16 08:27 Body Fluid Culture - Final Other-Specify in Comments - Clinical Findings Intake & Output: Intake & Output 08/11/16 08/11/16 08/11/16 07:59 15:59 23:59 Intake Total 1661 / 1661 534.0 / 534.0 Output Total 450 / 450 300 / 300 Balance 1211 / 1211 234.0 / 234.0 Weight 73.028 kg - Attending Attestation I examined this patient and my medical decision-making was reviewed with the RENDERING EQUIPMENT TENDER/PA/Advanced Practice Nurse/Resident Physician. I agree with the documented findings, disposition and treatment plan as described except to the extent set forth below. Patient seen and examined. Labs, radiology, chart personally reviewed. Agree with resident's history and physical, assessment, plan with following comments: CARPET INSTALLATION SPECIALIST: Patient follows commands after extubation, patient was on high dose Versed for sedation for vent synchrony and comfort, family wanted patient to be terminally extubated and for that reason I changed Versed to Precedex to help anxiety and also transition for extubation. Patient tolerated Precedex. Pulmonary: Acceptable oxygenation and ventilation. Family meeting in the presence of palliative care regarding end of life care and also comfort if patient struggles after extubation. CPAP trial was done and patient had acceptable numbers then subsequently was extubated. Patient had some respiratory distress after extubation which was treated with medications. at the bedside and answered all her questions. Family does not want reintubation. Cardiovascular: Monitor blood pressure GI: Nutrition per dietary and GI prophylaxis per routine. Swallowing Evaluation first Heme: DVT prophylaxis per routine Renal; urine out put and renal funtion reviewed. Hypernatremia is improved Endorcine: blood glucose is monitored. Adjust insulin coverage Lines: all lines checked and no evidence of infections Skin: skin care to prevent pressure ulcers per nursing routine care Overall prognosis is poor and monitor patient at this time was possibility of transferring to palliative care bed. I spent min 32 of Critical Care time with this patient. It involved decision making of high complexity to assess, manipulate, and support vital organ system failure and/or to prevent further life threatening deterioration of the patient' s condition. The time involved in the performance of separately reportable procedures was not counted toward critical care time.
[2016-08-11 05:23] LABS: ABG Base Excess 4.3 mEq/L (-2.0 to 3.0); ABG HCO3 29.7 mEQ/L (21-27); ABG Oxygen Saturation 92 % (95-98); ABG PCO2 48 mmHg (35-45); ABG PO2 65 mmHg (85-104); ABG TCO2 31.2 mEq/L (20-26)
[2016-08-11 05:24] LABS: Blood Gas FiO2 35 %
[2016-08-11] MEDS ORDERED: Dexmedetomidine HCl 400 MCG/100 ML MLS IVC SCH (07:30)
[2016-08-11] MEDS: Pantoprazole 40 MG VIAL IVP SCH (08:19)
[2016-08-11] MEDS: Chlorhexidine Rinse 15 ML MOUTHWASH MM SCH (08:19)
[2016-08-11] MEDS: Docusate Oral Soln 100 MG/10 ML UDC PO SCH ×2 (08:53→19:32)
[2016-08-11] MEDS: Simethicone 80 MG TAB.CHEW PO SCH ×3 (08:53→19:32)
[2016-08-11] MEDS: Cholecalciferol (D-3) 1,000 UNIT TABLET PO SCH (08:53)
[2016-08-11] MEDS: Magnesium Oxide 400 MG TABLET PO SCH (08:53)
[2016-08-11] MEDS ORDERED: predniSONE 10 MG TABLET PO SCH (09:00)
[2016-08-11] MEDS ORDERED: *HR* LORazepam 2 MG/ML VIAL IVP PRN (13:26)
[2016-08-11] MEDS ORDERED: *HR* Morphine 2 MG/ML SYRINGE IVP PRN (13:28)
--- NOTE | 2016-08-11 15:25 | Palliative Progress Note ---
Date of Encounter: 08/11/16 Time of Encounter: 13:30 - Assessment and plan (1) Dyspnea Current Visit: Yes Status: Acute Assessment and plan: Supportive oxygen after extubation, does not care to do bipap again as he did not tolerate well before. Will have low-dose Morphine available frequently if needed. (2) Generalized pain Current Visit: Yes Status: Acute Assessment and plan: Remains on Fentanyl per Icu protocol. Monitor (3) Anxiety Current Visit: Yes Status: Acute Assessment and plan: Precedex has been D/C'd. Will ensure order for Lorazepam as preparing for extubation. (4) Goals of care, counseling/discussion Current Visit: Yes Status: Acute Assessment and plan: Patient's family all here and would like pt extubated today. Doing fairly well on CPAP trial. D/W Dr. Emanuel, will extubate without sedatives and see how he does. Will have PRN meds available for dyspnea and anxiety if needed. Code status changed to DNRCC. Will continue other present medications and atb for now and follow his clinical course. Family understand that it is possible he experience resp distress if lungs fail, and that we will keep him comfortable if that time comes. If he transfers out of ICU - can go to Palliative unit under hospitalist care. Will continue to follow (5) Acute and chronic respiratory failure with hypoxia Current Visit: Yes Status: Acute (6) HCAP (healthcare-associated pneumonia) Current Visit: Yes Status: Acute (7) ARDS (adult respiratory distress syndrome) Current Visit: Yes Status: Acute - Time Spent With Patient Total time spent is greater than 50% in coordination of care (as documented) at patient's floor/unit and/or counseling patient: 25 - 35 minutes - Subjective Interval history: Patient currently in CPAP trial, family at bedside. states that she has spoke with Dr. Shah, pts family practitioner and had a good discussion with him. She is hoping for pt to be extubated soon. Precedex has been turned off and pt awake and restless. - Constitutional Vitals: Abnormal lab results WBC 13.0 K/mcL (4.3-11.1) H 08/11/16 04:04 RBC 2.94 M/mcL (4.19-5.50) L 08/11/16 04:04 Hgb 8.7 g/dL (12.9-16.9) L 08/11/16 04:04 Hct 26.9 % (37.5-50.1) L 08/11/16 04:04 Neutrophils # 10.6 K/mcL (1.6-8.9) H 08/11/16 04:04 Monocytes # 1.4 K/mcL (0.0-1.3) H 08/11/16 04:04 PT 36.4 Seconds (9.4-12.1) H 08/11/16 04:04 APTT 39.1 Seconds (26.0-36.0) H 08/09/16 04:20 ABG pCO2 48 mmHg (35-45) H 08/11/16 05:03 ABG pO2 65 mmHg (85-104) L 08/11/16 05:03 ABG HCO3 29.7 mEQ/L (21-27) H 08/11/16 05:03 ABG Total CO2 31.2 mEq/L (20-26) H 08/11/16 05:03 ABG O2 Saturation 92 % (95-98) L 08/11/16 05:03 ABG Base Excess 4.3 mEq/L (-2.0 to 3.0) H 08/11/16 05:03 Chloride 112 mEq/L (98-109) H 08/11/16 04:04 BUN 65 mg/dL (8-26) H 08/11/16 04:04 Creatinine 1.54 mg/dL (0.72-1.25) H 08/11/16 04:04 Est GFR ( Amer) 53 (> 60) L 08/11/16 04:04 Est GFR (Non-Af Amer) 44 (> 60) L 08/11/16 04:04 BUN/Creatinine Ratio 42 (6-26) H 08/11/16 04:04 Glucose 168 mg/dL (70-99) H 08/11/16 04:04 POC Glucose 98 (58-89) H 08/11/16 08:00 Calculated Osmolality 323 (280-300) H 08/11/16 04:04 Calcium 8.2 mg/dL (8.6-10.8) L 08/11/16 04:04 Alkaline Phosphatase 178 Units/L (38-126) H 08/01/16 14:16 Albumin 2.9 g/dL (3.5-5.0) L 08/01/16 14:16 Globulin 5.3 g/dL (2.4-3.5) H 08/01/16 14:16 Albumin/Globulin Ratio 0.5 (1.1-2.2) L 08/01/16 14:16 TSH 6.026 mcIU/mL (0.350-4.840) H 08/04/16 04:16 Vancomycin Trough 20.5 mcg/mL (10-20) H* 08/04/16 04:16 General appearance: Present: no acute distress - Respiratory Additional comments: Breath sounds course, remains on vent - Cardiovascular Cardiovascular exam: Present: +S1, +S2 - GI/Abdominal GI/Abdominal exam: Present: normal bowel sounds, soft - Extremities Exam Extremities exam: Present: normal capillary refill, normal inspection - Neurological Exam Neurological exam: Present: alert, altered Additional comments: Eyes open, nods yes/no at times. Remains intubated - Psychiatric Psychiatric exam: Present: anxious - Skin Skin exam: Present: dry, pallor, warm Palliative Quality Palliative Quality: Screen for Code Status: Yes, Screen for Goals of Care: Yes, Screen for Pain: Yes, If Pain Regimen Started, Initiate Bowel Regimen: Yes, Screen for Nausea/Vomitting: NA Code Status: 08/01/16 14:30 FULL [Resuscitation Status: Active] [RES] Routine Comment: Resuscitation Status: Full Code 08/09/16 12:45 DNR [Resuscitation Status: Active] [RES] Routine Comment: Resuscitation Status: DNR-Comfort Care-Arrest 08/11/16 13:01 DNR [Resuscitation Status: Active] [RES] Routine Comment: Resuscitation Status: [id number] 08/11/16 13:24 DNR [Resuscitation Status: Active] [RES] Routine Comment: Resuscitation Status: DNR-Comfort Care - Labs CBC & Chem 7: 08/11/16 04:04 08/11/16 04:04 Labs: Laboratory Results - last 24 hr 08/10/16 08/10/16 08/10/16 03:30 19:59 23:49 WBC RBC Hgb Hct MCV MCH MCHC RDW Plt Count MPV Immature Gran % Seg Neutrophils % Lymphocytes % Monocytes % Eosinophils % Basophils % Neutrophils # Lymphocytes # Monocytes # Eosinophils # Basophils # PT INR ABG pH ABG pCO2 ABG pO2 ABG HCO3 ABG Total CO2 ABG O2 Saturation ABG Base Excess Inspired O2 Sodium 146 H Potassium 3.8 Chloride 112 H Carbon Dioxide 25 BUN 64 H Creatinine 1.67 H Est GFR ( Amer) 49 L Est GFR (Non-Af Amer) 40 L BUN/Creatinine Ratio 38 H Glucose 251 H POC Glucose 273 H 262 H Calculated Osmolality 329 H Calcium 8.4 L 08/11/16 08/11/16 08/11/16 03:52 04:04 04:04 WBC 13.0 H RBC 2.94 L Hgb 8.7 L Hct 26.9 L MCV 91.5 MCH 29.6 MCHC 32.3 RDW 13.6 Plt Count 294 MPV 10.4 Immature Gran % 0.8 Seg Neutrophils % 81.7 Lymphocytes % 6.8 Monocytes % 10.6 Eosinophils % 0.0 Basophils % 0.1 Neutrophils # 10.6 H Lymphocytes # 0.9 Monocytes # 1.4 H Eosinophils # 0.0 Basophils # 0.0 PT 36.4 H INR 3.3 ABG pH ABG pCO2 ABG pO2 ABG HCO3 ABG Total CO2 ABG O2 Saturation ABG Base Excess Inspired O2 Sodium Potassium Chloride Carbon Dioxide BUN Creatinine Est GFR ( Amer) Est GFR (Non-Af Amer) BUN/Creatinine Ratio Glucose POC Glucose 185 H Calculated Osmolality Calcium 08/11/16 08/11/16 08/11/16 04:04 05:03 08:00 WBC RBC Hgb Hct MCV MCH MCHC RDW Plt Count MPV Immature Gran % Seg Neutrophils % Lymphocytes % Monocytes % Eosinophils % Basophils % Neutrophils # Lymphocytes # Monocytes # Eosinophils # Basophils # PT INR ABG pH 7.40 ABG pCO2 48 H ABG pO2 65 L ABG HCO3 29.7 H ABG Total CO2 31.2 H ABG O2 Saturation 92 L ABG Base Excess 4.3 H Inspired O2 35 Sodium 145 Potassium 3.7 Chloride 112 H Carbon Dioxide 25 BUN 65 H Creatinine 1.54 H Est GFR ( Amer) 53 L Est GFR (Non-Af Amer) 44 L BUN/Creatinine Ratio 42 H Glucose 168 H POC Glucose 98 H Calculated Osmolality 323 H Calcium 8.2 L - Impressions Impressions Chest X-Ray 08/11/16 07:36 IMPRESSION: Endotracheal tube tip in the right mainstem bronchus. The tube should be retracted by approximately 3 cm. D/ / 08/11/2016 08:06:01 Miguelito Carpio MD / irwin Interpreting Provider: Miguelito Carpio MD Chest X-Ray 08/11/16 08:15 IMPRESSION: Status post repositioning of endotracheal tube with tip now 3 cm above the marii. Otherwise stable findings. D/ / Shahla Hoang Cha, MD / Shahla Hoang Cha, MD Interpreting Provider: Shahla Hoang Cha, MD X-Ray 08/11/16 08:15 IMPRESSION: Enteric tube in place, tip likely within the distal stomach. D/ / Shahla Hoang Cha, MD / Shahla Hoang Cha, MD Interpreting Provider: Shahla Hoang Cha, MD - ABG Interpretation ABG results: ABG ABG pH 7.40 pH Units (7.32-7.45) 08/11/16 05:03 ABG pCO2 48 mmHg (35-45) H 08/11/16 05:03 ABG pO2 65 mmHg (85-104) L 08/11/16 05:03 ABG O2 Saturation 92 % (95-98) L 08/11/16 05:03 PT/INR, D-dimer PT 36.4 Seconds (9.4-12.1) H 08/11/16 04:04 Consult Discharge Plan - Plan Referrals: Silas Shah MD [Primary Care Provider] -
[2016-08-11] MEDS ORDERED: *HR* Dextrose 50 % in Water (Syg) 50 ML SYRINGE IVP PRN (17:33)
[2016-08-11] MEDS ORDERED: Albuterol 2.5 MG/3 ML NEBULIZER IH PRN (17:33)
[2016-08-11] MEDS ORDERED: Benzocaine 20% 9 GM GEL..GRAM. TP PRN (17:33)
[2016-08-11] MEDS ORDERED: D5% in Water 1,000 ML IV PRN (17:33)
[2016-08-11] MEDS ORDERED: Warfarin perPT PO PRN (17:33)
[2016-08-11] MEDS ORDERED: Dextrose Gel 15 GM PO PRN ×2 (17:33)
[2016-08-11] MEDS: *HR* Morphine 2 MG/ML SYRINGE IVP PRN ×5 (17:52→23:33)
[2016-08-11] MEDS: *HR* LORazepam 2 MG/ML VIAL IVP PRN ×2 (20:15→22:31)
[2016-08-11] MEDS ORDERED: Scopolamine Patch 1.5 MG PATCH.TD72 TD ONE (23:02)
[2016-08-11] MEDS ORDERED: DIPHENOXYLATE PO PRN (23:03)
[2016-08-11] MEDS ORDERED: ATROPINE PO PRN (23:03)
[2016-08-11] MEDS ORDERED: *HR* FentaNYL PATCH 12 MCG PATCH TD STA (23:05)
[2016-08-11] MEDS ORDERED: PHENobarbital 32.4 MG TABLET PO SCH (23:15)
[2016-08-11] MEDS: Atropine Sulfate 1% 40 DROP/2 ML BOTTLE SL PRN (23:34)
[2016-08-12] MEDS: *HR* Morphine 2 MG/ML SYRINGE IVP PRN ×6 (00:18→08:49)
[2016-08-12] MEDS: Insulin LISPRO 300 UNITS/3 ML VIAL SQ SCH ×3 (00:23→08:44)
[2016-08-12] MEDS: Ipratropium/Albuterol Neb 3 ML IH SCH ×7 (00:44→23:34)
[2016-08-12] MEDS: Atropine Sulfate 1% 40 DROP/2 ML BOTTLE SL PRN ×5 (01:31→14:21)
[2016-08-12] MEDS: *HR* LORazepam 2 MG/ML VIAL IVP PRN (01:31)
[2016-08-12 04:01] LABS: Basophils % 0.1 %; Eosinophils # 0.3 K/mcL (0.0-0.6); Eosinophils % 1.8 %; Hematocrit 29.7 % (37.5-50.1); Hemoglobin 9.5 g/dL (12.9-16.9); Immature Granulocytes % 1.2 % (0-4); Immature Platelets 4.6 % (1.1-6.1); Lymphocytes # 1.7 K/mcL (0.6-4.6); Lymphocytes % 11.8 %; Mean Corpuscular Hemoglobin 29.1 pg (28.0-33.3); Mean Corpuscular Volume 91.1 fL (83.0-100.0); Mean Platelet Volume 10.3 fL (9.4-12.4); Monocytes # 1.5 K/mcL (0.0-1.3); Monocytes % 10.3 %; Neutrophils # 10.8 K/mcL (1.6-8.9); Platelet Count 333 K/mcL (140-400); Red Blood Count 3.26 M/mcL (4.19-5.50); Red Cell Distribution Width 13.5 % (11.5-14.5); Segmented Neutrophils % 74.8 %
[2016-08-12 04:12] LABS: INR 2.9; Prothrombin Time 32.4 Seconds (9.4-12.1)
[2016-08-12 04:25] LABS: BUN/Creatinine Ratio 42 (6-26); Blood Urea Nitrogen 57 mg/dL (8-26); Calcium 8.7 mg/dL (8.6-10.8); Carbon Dioxide 26 mEq/L (19-29); Chloride 113 mEq/L (98-109); Glucose 123 mg/dL (70-99); Osmolality,Calculated 325 (280-300); Potassium 4.1 mEq/L (3.5-4.5); Sodium 149 mEq/L (136-145); eGFR For African Americans > 60 (> 60); eGFR For Non-African Americans 51 (> 60)
[2016-08-12] MEDS: Simethicone 80 MG TAB.CHEW PO SCH (07:17)
[2016-08-12] MEDS: Docusate Oral Soln 100 MG/10 ML UDC PO SCH (07:17)
[2016-08-12] MEDS ORDERED: predniSONE 10 MG TABLET PO SCH (09:00)
[2016-08-12] MEDS ORDERED: Magnesium Oxide 400 MG TABLET PO SCH (09:00)
[2016-08-12] MEDS ORDERED: Pantoprazole 40 MG VIAL IVP SCH (09:00)
[2016-08-12] MEDS ORDERED: Cholecalciferol (D-3) 1,000 UNIT TABLET PO SCH (09:00)
--- NOTE | 2016-08-12 09:08 | Palliative Progress Note ---
Date of Encounter: 08/12/16 Time of Encounter: 08:50 - Assessment and plan (1) Dyspnea Current Visit: Yes Status: Acute Assessment and plan: He is still having significant resp distress and has had a total of 12 doses Morphine since 1500 yesterday. Was increased to 4mg every hour PRN late evening. D/W who desires him more comfortable. Will begin Morphine drip and titrate for comfort. (2) Ineffective airway clearance Current Visit: Yes Status: Acute Assessment and plan: Continue Atropine drops and add Scopolamine patch to help with secretion management and avoid suctioning (3) Generalized pain Current Visit: Yes Status: Acute (4) Anxiety Current Visit: Yes Status: Acute Assessment and plan: Patient has been restless and states has fearful expression when awake and he is scared to sleep. Will schedule Lorazepam every 4 hours and adjust as necessary. (5) Goals of care, counseling/discussion Current Visit: Yes Status: Acute Assessment and plan: tearful at bedside. Desires him to be more comfortable. Understands he is doing poorly and that resp status has declined. Will D/C accuchecks and po meds. Allow sips for comfort if he can tolerate. Provided emotional support to . D/W Dr. Figueroa - he is likely to over the next 24 hours. If he stabilized, can discuss inpt hospice with in am. (6) Acute and chronic respiratory failure with hypoxia Current Visit: Yes Status: Acute (7) HCAP (healthcare-associated pneumonia) Current Visit: Yes Status: Acute (8) ARDS (adult respiratory distress syndrome) Current Visit: Yes Status: Acute - Time Spent With Patient Total time spent is greater than 50% in coordination of care (as documented) at patient's floor/unit and/or counseling patient: 25 - 35 minutes - Subjective Interval history: Patient with increasing respiratory distress throughout yesterday evening and required increase in Morphine. Received several doses during the night. at bedside and states increased dose helped some, but he still appears with significant resp distress with RR 34-36 and use of accessory muscles. Sao2 remains in 80's. Some mottling noted to lower extremities. - Constitutional Vitals: Abnormal lab results WBC 14.5 K/mcL (4.3-11.1) H 08/12/16 03:53 RBC 3.26 M/mcL (4.19-5.50) L 08/12/16 03:53 Hgb 9.5 g/dL (12.9-16.9) L 08/12/16 03:53 Hct 29.7 % (37.5-50.1) L 08/12/16 03:53 Neutrophils # 10.8 K/mcL (1.6-8.9) H 08/12/16 03:53 Monocytes # 1.5 K/mcL (0.0-1.3) H 08/12/16 03:53 PT 32.4 Seconds (9.4-12.1) H 08/12/16 03:53 APTT 39.1 Seconds (26.0-36.0) H 08/09/16 04:20 ABG pCO2 48 mmHg (35-45) H 08/11/16 05:03 ABG pO2 65 mmHg (85-104) L 08/11/16 05:03 ABG HCO3 29.7 mEQ/L (21-27) H 08/11/16 05:03 ABG Total CO2 31.2 mEq/L (20-26) H 08/11/16 05:03 ABG O2 Saturation 92 % (95-98) L 08/11/16 05:03 ABG Base Excess 4.3 mEq/L (-2.0 to 3.0) H 08/11/16 05:03 Sodium 149 mEq/L (136-145) H 08/12/16 03:53 Chloride 113 mEq/L (98-109) H 08/12/16 03:53 BUN 57 mg/dL (8-26) H 08/12/16 03:53 Creatinine 1.36 mg/dL (0.72-1.25) H 08/12/16 03:53 Est GFR (Non-Af Amer) 51 (> 60) L 08/12/16 03:53 BUN/Creatinine Ratio 42 (6-26) H 08/12/16 03:53 Glucose 123 mg/dL (70-99) H 08/12/16 03:53 POC Glucose 169 (58-89) H 08/12/16 07:50 Calculated Osmolality 325 (280-300) H 08/12/16 03:53 Alkaline Phosphatase 178 Units/L (38-126) H 08/01/16 14:16 Albumin 2.9 g/dL (3.5-5.0) L 08/01/16 14:16 Globulin 5.3 g/dL (2.4-3.5) H 08/01/16 14:16 Albumin/Globulin Ratio 0.5 (1.1-2.2) L 08/01/16 14:16 TSH 6.026 mcIU/mL (0.350-4.840) H 08/04/16 04:16 Vancomycin Trough 20.5 mcg/mL (10-20) H* 08/04/16 04:16 General appearance: Present: mild distress - Respiratory Additional comments: Rhonchi noted throughout all lung francis.. - Cardiovascular Cardiovascular exam: Present: +S1, +S2, tachycardia - GI/Abdominal GI/Abdominal exam: Present: normal bowel sounds, soft - Additional comments: Garcia with dk hunter urine - Extremities Exam Additional comments: Some mottling noted to lower extremities - Neurological Exam Additional comments: Eyes open, restless, currently not following commands. states he did communicate with them yesterday evening - Skin Skin exam: Present: dry, pallor, warm Palliative Quality Palliative Quality: Screen for Code Status: Yes, Screen for Goals of Care: Yes, Screen for Pain: Yes, If Pain Regimen Started, Initiate Bowel Regimen: Yes, Screen for Nausea/Vomitting: NA Code Status: 08/01/16 14:30 FULL [Resuscitation Status: Active] [RES] Routine Comment: Resuscitation Status: Full Code 08/09/16 12:45 DNR [Resuscitation Status: Active] [RES] Routine Comment: Resuscitation Status: DNR-Comfort Care-Arrest 08/11/16 13:01 DNR [Resuscitation Status: Active] [RES] Routine Comment: Resuscitation Status: [id number] 08/11/16 13:24 DNR [Resuscitation Status: Active] [RES] Routine Comment: Resuscitation Status: DNR-Comfort Care - Labs CBC & Chem 7: 08/12/16 03:53 08/12/16 03:53 Labs: Laboratory Results - last 24 hr 08/11/16 08/11/16 08/12/16 15:22 22:20 00:22 WBC RBC Hgb Hct MCV MCH MCHC RDW Plt Count MPV Immature Gran % Seg Neutrophils % Lymphocytes % Monocytes % Eosinophils % Basophils % Neutrophils # Lymphocytes # Monocytes # Eosinophils # Basophils # Immature Plt Fraction PT INR Sodium Potassium Chloride Carbon Dioxide BUN Creatinine Est GFR ( Amer) Est GFR (Non-Af Amer) BUN/Creatinine Ratio Glucose POC Glucose 140 H 155 H 120 H Calculated Osmolality Calcium 08/12/16 08/12/16 08/12/16 03:53 03:53 03:53 WBC 14.5 H RBC 3.26 L Hgb 9.5 L Hct 29.7 L MCV 91.1 MCH 29.1 MCHC 32.0 RDW 13.5 Plt Count 333 MPV 10.3 Immature Gran % 1.2 Seg Neutrophils % 74.8 Lymphocytes % 11.8 Monocytes % 10.3 Eosinophils % 1.8 Basophils % 0.1 Neutrophils # 10.8 H Lymphocytes # 1.7 Monocytes # 1.5 H Eosinophils # 0.3 Basophils # 0.0 Immature Plt Fraction 4.6 PT 32.4 H INR 2.9 Sodium 149 H Potassium 4.1 Chloride 113 H Carbon Dioxide 26 BUN 57 H Creatinine 1.36 H Est GFR ( Amer) > 60 Est GFR (Non-Af Amer) 51 L BUN/Creatinine Ratio 42 H Glucose 123 H POC Glucose Calculated Osmolality 325 H Calcium 8.7 08/12/16 07:50 WBC RBC Hgb Hct MCV MCH MCHC RDW Plt Count MPV Immature Gran % Seg Neutrophils % Lymphocytes % Monocytes % Eosinophils % Basophils % Neutrophils # Lymphocytes # Monocytes # Eosinophils # Basophils # Immature Plt Fraction PT INR Sodium Potassium Chloride Carbon Dioxide BUN Creatinine Est GFR ( Amer) Est GFR (Non-Af Amer) BUN/Creatinine Ratio Glucose POC Glucose 169 H Calculated Osmolality Calcium - ABG Interpretation ABG results: ABG ABG pH 7.40 pH Units (7.32-7.45) 08/11/16 05:03 ABG pCO2 48 mmHg (35-45) H 08/11/16 05:03 ABG pO2 65 mmHg (85-104) L 08/11/16 05:03 ABG O2 Saturation 92 % (95-98) L 08/11/16 05:03 PT/INR, D-dimer PT 32.4 Seconds (9.4-12.1) H 08/12/16 03:53 Consult Discharge Plan - Plan Referrals: Silas Shah MD [Primary Care Provider] -
[2016-08-12] MEDS ORDERED: Scopolamine Patch 1.5 MG PATCH.TD72 TD SCH (09:15)
[2016-08-12] MEDS: Morphine 50 MG in D5% in Water 45 ML IVC SCH ×2 (09:44→22:25)
[2016-08-12] MEDS: *HR* LORazepam 2 MG/ML VIAL IVP SCH ×4 (09:51→20:51)
[2016-08-12] MEDS ORDERED: Levofloxacin 750 MG/150 ML 750 MG/150 ML BAG IVPB SCH (12:00)
--- NOTE | 2016-08-12 17:47 | Internal Med Progress Note ---
Date of Encounter: 08/12/16 Time of Encounter: 17:45 - Assessment and plan (1) ARDS (adult respiratory distress syndrome) Current Visit: Yes Status: Acute Assessment and plan: Secondary to healthcare associated pneumonia status post extubation Antibiotics were discontinued including Levaquin Continue only comfort measures with scopolamine, morphine drip, Ativan as needed May be discharged in the morning to inpatient hospice Followed by the palliative care service (2) Chronic kidney disease (CKD) Current Visit: Yes Status: Acute Assessment and plan: - Qualifiers: Chronic kidney disease stage: stage 3 (moderate) Qualified Code(s): N18.3 - Chronic kidney disease, stage 3 (moderate) (3) Diabetes Current Visit: Yes Status: Acute Assessment and plan: Discontinued sliding-scale Qualifiers: Diabetes mellitus type: type 2 Diabetes mellitus complication status: with unspecified complications Diabetes mellitus detention insulin use: with intermediate card tender use Qualified Code(s): E11.8 - Type 2 diabetes mellitus with unspecified complications; Z79.4 - residential (current) use of insulin (4) COPD (chronic obstructive pulmonary disease) Current Visit: No Status: Chronic Qualifiers: COPD type: emphysema Emphysema type: panlobular Qualified Code(s): J43.1 - Panlobular emphysema (5) Tobacco abuse Current Visit: No Status: Chronic Assessment and plan: -Poor prognosis (6) End of life care Current Visit: Yes Status: Acute - Subjective Interval history: The patient appears peaceful, not able to wake up - Constitutional Vitals: Temp Pulse Resp BP Pulse Ox 96.2 F L 92 22 152/82 89 L 08/12/16 11:04 08/12/16 11:04 08/12/16 16:42 08/12/16 11:04 08/12/16 16:42 General appearance: Present: A&O X 0, underweight. Absent: cooperative, A&O X 3 , pleasant, answers questions appropriately - Head Head exam: Present: atraumatic, normocephalic - Eye Eye exam: Present: PERRL, conjuntiva pink, sclera anicteric Pupils: Present: PERRL - Neck Neck exam general surgery: Present: supple, trachea midline. Absent: lymphadenopathy - Respiratory Respiratory exam: Present: accessory muscle use, decreased breath sounds, CTAB, rales (Diffuse crackles with very diminished breath sounds). Absent: rhonchi, wheezes - Cardiovascular Cardiovascular exam: Present: RRR, +S1, +S2. Absent: diastolic murmur, gallop, rubs, systolic murmur - GI/Abdominal GI/Abdominal exam: Present: distended, normal bowel sounds, soft, no peritoneal signs. Absent: tenderness - Extremities Exam Extremities exam: Present: warm, radial pulses palpable and symetrical. Absent : calf tenderness, cyanotic, pedal edema - Neurological Exam Neurological exam: Present: CN II-XII intact, no focal deficits. Absent: oriented X3, pronater drift, facial droop, speech deficit - Skin Skin exam: Present: dry, intact Internal Medicine: Result - Labs CBC & Chem 7: 08/12/16 03:53 08/12/16 03:53 Labs: Short CBC 08/12/16 Range/Units 03:53 WBC 14.5 H (4.3-11.1) K/mcL Hgb 9.5 L (12.9-16.9) g/dL Hct 29.7 L (37.5-50.1) % Plt Count 333 (140-400) K/mcL Neutrophils # 10.8 H (1.6-8.9) K/mcL BMP 08/12/16 03:53 Sodium 149 H Potassium 4.1 Chloride 113 H Carbon Dioxide 26 BUN 57 H Creatinine 1.36 H Glucose 123 H Calcium 8.7 - ABG Interpretation ABG results: ABG ABG pH 7.40 pH Units (7.32-7.45) 08/11/16 05:03 ABG pCO2 48 mmHg (35-45) H 08/11/16 05:03 ABG pO2 65 mmHg (85-104) L 08/11/16 05:03 ABG O2 Saturation 92 % (95-98) L 08/11/16 05:03 PT/INR, D-dimer PT 32.4 Seconds (9.4-12.1) H 08/12/16 03:53 Consult Discharge Plan - Plan Referrals: Silas Shah MD [Primary Care Provider] -
[2016-08-12 21:14] VITALS: BP 171/88
[2016-08-13] MEDS: *HR* LORazepam 2 MG/ML VIAL IVP SCH ×3 (01:02→09:18)
[2016-08-13] MEDS: Ipratropium/Albuterol Neb 3 ML IH SCH ×2 (04:05→07:50)
[2016-08-13] MEDS: *HR* Morphine 2 MG/ML SYRINGE IVP PRN ×3 (04:27→09:17)
[2016-08-13] MEDS: Atropine Sulfate 1% 40 DROP/2 ML BOTTLE SL PRN ×3 (04:28→09:18)
--- NOTE | 2016-08-13 09:37 | Discharge Summary ---
Date of Encounter: 08/13/16 Time of Encounter: 09:29 - Discharge Diagnosis (1) ARDS (adult respiratory distress syndrome) Priority: Primary Status: Acute Comments: Secondary to healthcare associated pneumonia status post extubation Antibiotics were discontinued including Levaquin Continue only comfort measures with scopolamine, morphine drip, Ativan as needed Discharge to inpatient hospice Followed by the palliative care service (2) Chronic kidney disease (CKD) Priority: Secondary Status: Acute Qualifiers: Chronic kidney disease stage: stage 3 (moderate) Qualified Code(s): N18.3 - Chronic kidney disease, stage 3 (moderate) (3) Diabetes Priority: Secondary Status: Acute Qualifiers: Diabetes mellitus type: type 2 Diabetes mellitus complication status: with unspecified complications Diabetes mellitus intermediate insulin use: with long term acute care registered nurse use Qualified Code(s): E11.8 - Type 2 diabetes mellitus with unspecified complications; Z79.4 - jail (current) use of insulin (4) COPD (chronic obstructive pulmonary disease) Priority: Secondary Status: Chronic Qualifiers: COPD type: emphysema Emphysema type: panlobular Qualified Code(s): J43.1 - Panlobular emphysema (5) Tobacco abuse Priority: Secondary Status: Chronic (6) End of life care Priority: Secondary Status: Acute - Discharge Medications Home Medications: Warfarin [Coumadin] 5 mg PO Q48H 06/24/16 [History] Atorvastatin [Lipitor] 20 mg PO HS 07/01/16 [History] Carvedilol [Coreg] 12.5 mg PO BID 07/01/16 [History] Cholecalciferol (Vitamin D3) [Vitamin D3] 5,000 unit PO DAILY 07/01/16 [History] CloNIDine HCl [Clonidine HCl] 0.3 mg PO TID 07/01/16 [History] Doxazosin [Cardura] 4 mg PO BID 07/01/16 [History] Hydroxyzine HCl 25 mg PO Q6H 07/01/16 [History] Insulin DETEMIR [Levemir Flextouch] 26 unit SQ HS 07/01/16 [History] NIFEdipine XL (24 HR) [Procardia XL] 60 mg PO BID 07/01/16 [History] Sitagliptin Phosphate [Januvia] 50 mg PO DAILY 07/01/16 [History] Furosemide [Lasix] 40 mg PO DAILY 08/02/16 [History] Warfarin [Coumadin] 2.5 mg PO Q48H 08/02/16 [History] Allergies/Adverse Reactions: Allergies ciprofloxacin [From Cipro] Allergy (Verified 07/01/16 13:16) See Comments doxycycline Allergy (Verified 07/01/16 13:16) Redness of Skin Erythromycin Base Allergy (Verified 07/01/16 13:16) Rash guanfacine Allergy (Verified 07/01/16 13:16) See Comments ofloxacin Allergy (Verified 07/01/16 13:16) Hives Penicillins [PCN] Allergy (Verified 07/01/16 13:16) See Comments Procaine Allergy (Verified 07/01/16 13:16) See Comments sulfamethoxazole Allergy (Verified 07/01/16 13:16) See Comments Tocainide [From Tonocard] Allergy (Verified 07/01/16 13:16) See Comments Procedures/tests Complete & Pending: Procedures Performed prior 72 hours Category Date Time Status Head CT without Contrast [CT head/brain wo con] [CT] Cat Scan 08/10/16 11:00 Completed Routine Date of admission: 08/01/16 15:59 Primary care physician: Silas Shah MD Consults: 08/01/16 18:20 Consult to Nurse Navigator [CONS] Routine Comment: 08/04/16 08:50 Consult to Pulmonology [CONS] Routine Consulting Provider: [facility] [place] Reason for Consult: Concern for ARDS. Patient on bipap and having increase work of breathing. Intubate. Call Completed: Yes 08/05/16 11:33 Consult to Nutrition [CONS] Stat Comment: Consulting Provider: NUTRITION Reason for Dietary Consult: TF Start and Manage 08/08/16 08:06 Consult to Palliative Care [CONS] Routine Comment: Consulting Provider: Palliative [facility] [place] - Patient Status Disposition: Hospice - Medical Facility Condition: Critical - Discharge Instructions Follow Up With: Silas Shah MD [Primary Care Provider] - Additional Instructions: Continue care per palliative care service - Diet and Activity Diet: regular diet Hospital course: Mr. Cummins is a 76 year old male with a past medical history of arthritis, asthma, COPD, DVT, diabetes, GERD, hyperlipidemia, hypertension, kidney stones, osteoporosis (Left hip avascular necrosis.), RA, renal disease, SVT, other ( Psoriasis. Alcohol dependency. Anemia. Nicotine dependency. Presented with increasing shortness of breath, quickly developed labored breathing at home, and his son was notified and brought him to hospital. He was on bipap therapy, however, went further into respiratory failure and required intubation , went to the ICU He was extubated Wednesday, and throughout the day required increasing amounts of oxygen, eventually bipap, and was re-intubated Wednesday. He was sedated and on the ventilator. The patient was treated with antibiotic therapy but unfortunately she developed ARDS. Family decided to pursue comfort measures only due to his poor prognosis, the moment his resting peacefully using morphine drip and Ativan when necessary. Scopolamine patch was placed as well that is helping with his secretions. The patient will be discharged in order for that particular service to takeover and continue hospice. - Time Spent with Patient Total time spent providing and/or coordinating discharge services: Greater than 30 minutes - Constitutional Vitals: Temp Pulse Resp BP Pulse Ox 97.8 F 91 16 171/88 93 L 08/12/16 21:10 08/12/16 21:10 08/13/16 07:52 08/12/16 21:10 08/13/16 07:52 General appearance: Present: A&O X 0, underweight. Absent: cooperative, A&O X 3 , pleasant, answers questions appropriately - Head Head exam: Present: atraumatic, normocephalic - Eye Eye exam: Present: PERRL (Myotic pupils), conjuntiva pink, sclera anicteric Pupils: Present: PERRL - Neck Neck exam general surgery: Present: supple, trachea midline. Absent: lymphadenopathy - Respiratory Respiratory exam: Present: CTAB, rales (Coarse crackles/diffuse). Absent: accessory muscle use, rhonchi, wheezes - Cardiovascular Cardiovascular exam: Present: RRR, +S1, +S2, tachycardia. Absent: diastolic murmur, gallop, rubs, systolic murmur - GI/Abdominal GI/Abdominal exam: Present: normal bowel sounds, soft, no peritoneal signs. Absent: distended, tenderness - Extremities Exam Extremities exam: Present: warm, radial pulses palpable and symetrical. Absent : calf tenderness, cyanotic, pedal edema - Neurological Exam Neurological exam: Present: no focal deficits. Absent: CN II-XII intact ( Appears peaceful), oriented X3, pronater drift, facial droop, speech deficit - Skin Skin exam: Present: dry, intact
== END 2016-08-13 10:45 | disposition hospice, inpatient (51) | DRG 207 ==
LOC: 2NENU → SUATTDRO 15:59 → ICNU 08-04 09:47 → 2ANU 08-11 17:41
PROVIDERS: ADMIT Internal Medicine; ATTEND Internal Medicine

== ENCOUNTER 2016-08-13 09:29 | Inpatient (IN) ==
[2016-08-13] MEDS ORDERED: Bisacodyl 10 MG RECTAL SUPPOSITORY RC PRN (09:41)
[2016-08-13] MEDS ORDERED: Ipratropium/Albuterol Neb 3 ML IH PRN (09:41)
[2016-08-13] MEDS ORDERED: Haloperidol Lactate 5 MG/ML VIAL IVP PRN (09:41)
[2016-08-13] MEDS ORDERED: Scopolamine Patch 1.5 MG PATCH.TD72 TD SCH (09:45)
--- NOTE | 2016-08-13 09:57 | Palliative - Consult Note ---
Date of Encounter: 08/13/16 Time of Encounter: 09:50 - Assessment and Plan (1) Dyspnea Current Visit: No Status: Acute Assessment and plan: Patient currently on MOrphine drip at 3mg/hr. He has increased RR this am, and has required breakthrough doses x5 last 24 hours. Will increase drip to 4mg/hr and monitor. Adjust as necessary Qualifiers: Dyspnea type: unspecified Qualified Code(s): R06.00 - Dyspnea, unspecified (2) Anxiety Current Visit: No Status: Acute Assessment and plan: Patient still has periods of alertness, and when he is awake, he appears restless and fearful. , Yenni desires light sedation to avoid distress. Will schedule Lorazepam ATC and monitor. ADjust as needed. (3) Ineffective airway clearance Current Visit: No Status: Acute Assessment and plan: Continue scopolamine patch and atropine drops SL PRN. (4) Goals of care, counseling/discussion Current Visit: No Status: Acute Assessment and plan: Transition to general inpt hospice care today. Dr. Molina has discharged pt from [facility]. Palliative will continue to follow and assist with symptom management. Palliative-CN HPI - Data of Consult Consult date: 08/13/16 Requesting Physician: Silas Alexis MD - Consult Narrative History of present illness: Mr. Cummins is a 76 year old male who has had frequent hospitalizations for recurrent respiratory infections and pneumonia, who was again admitted with increased shortness of breath. Patient decompensated after admission and was intubated. He was on vent settings and treated for ARDS - had improved and was extubated on WedAug 07 but declined and was re-intubated the next am. Conversations were held with and family, and on Aug 11 he was again extubated. He had been doing fairly well with CPAP trial and was stable for a few hours after extubation, but again declined throughout the evening, requiring opioids to help with dyspnea and increasing respiratory rate. He had been transitioned to DNR-Comfort Care. He required increased IV opioids and eventually required a continuous drip to control his symptoms. He currently does have periods of alertness, and able to communicate some with "yes/no". His , Yenni, has been by his side throughout hospitalization. Today, he was discharged from the hospital and admitted for general inpt care under [facility]. CC: Silas Alexis MD Past Med Surg Social Fam HX - Past Medical History Medical history: arthritis, asthma, COPD, DVT, diabetes, GERD, hyperlipidemia, hypertension, kidney stones, osteoporosis (Left hip avascular necrosis.), RA, renal disease, SVT, other (Psoriasis. Alcohol dependency. Anemia. Nicotine dependency.) Psychiatric history: no psych history, other - Past Surgical History Surgical History: hip replacement, ureteral stent, vascular surgery (Right lower extremity venous thrombectomy s/p DVT), other (Penile implant 2. Colonoscopy.) - Social History Smoking Status: Current every day smoker Smokeless Tobacco Status: No Alcohol use: occasionally, heavy (Drinks as much as 6-12 beers per day. Rarely less than 2-3 beers per day.) Drug use: none - Family History Father Living Status: Medications and Allergies Warfarin [Coumadin] 5 mg PO Q48H 06/24/16 [History] Atorvastatin [Lipitor] 20 mg PO HS 07/01/16 [History] Carvedilol [Coreg] 12.5 mg PO BID 07/01/16 [History] Cholecalciferol (Vitamin D3) [Vitamin D3] 5,000 unit PO DAILY 07/01/16 [History] CloNIDine HCl [Clonidine HCl] 0.3 mg PO TID 07/01/16 [History] Doxazosin [Cardura] 4 mg PO BID 07/01/16 [History] Hydroxyzine HCl 25 mg PO Q6H 07/01/16 [History] Insulin DETEMIR [Levemir Flextouch] 26 unit SQ HS 07/01/16 [History] NIFEdipine XL (24 HR) [Procardia XL] 60 mg PO BID 07/01/16 [History] Sitagliptin Phosphate [Januvia] 50 mg PO DAILY 07/01/16 [History] Furosemide [Lasix] 40 mg PO DAILY 08/02/16 [History] Warfarin [Coumadin] 2.5 mg PO Q48H 08/02/16 [History] Allergies ciprofloxacin [From Cipro] Allergy (Verified 07/01/16 13:16) See Comments doxycycline Allergy (Verified 07/01/16 13:16) Redness of Skin Erythromycin Base Allergy (Verified 07/01/16 13:16) Rash guanfacine Allergy (Verified 07/01/16 13:16) See Comments ofloxacin Allergy (Verified 07/01/16 13:16) Hives Penicillins [PCN] Allergy (Verified 07/01/16 13:16) See Comments Procaine Allergy (Verified 07/01/16 13:16) See Comments sulfamethoxazole Allergy (Verified 07/01/16 13:16) See Comments Tocainide [From Tonocard] Allergy (Verified 07/01/16 13:16) See Comments ROS unobtainable: due to mental status Palliative Care-Exam - Head Head Exam: Present: normal inspection, normocephalic - Respiratory Additional comments: Scattered rhonchi throughout - Cardiovascular Cardiovascular exam: Present: irregular rhythm, tachycardia - GI/Abdominal Exam GI/Abdominal exam: Present: normal bowel sounds, soft - Catheter Type: Urethral (Garcia) Additional comments: Pale yellow urine - Extremities Exam Extremities exam: Present: normal capillary refill, normal inspection - Neurological Exam Neurological exam: Present: alert Additional comments: Periods of alertness, appears too weak to communicate. Will shake head yes/no - Skin Skin exam: Present: dry, pallor, warm Palliative Quality Palliative Quality: Screen for Code Status: Yes, Screen for Goals of Care: Yes, Screen for Pain: Yes, If Pain Regimen Started, Initiate Bowel Regimen: Yes, Screen for Nausea/Vomitting: Yes Code Status: 08/13/16 09:41 Resuscitation Status: Active [RES] Routine Comment: Resuscitation Status: DNR-Comfort Care
[2016-08-13] MEDS: *HR* Morphine 2 MG/ML SYRINGE IVP PRN ×3 (12:10→17:01)
[2016-08-13] MEDS: *HR* LORazepam 2 MG/ML VIAL IVP SCH ×4 (12:12→23:55)
[2016-08-13] MEDS: Atropine Sulfate 1% 40 DROP/2 ML BOTTLE SL PRN ×5 (12:13→23:55)
--- NOTE | 2016-08-13 12:36 | Pallative History & Physical ---
Date of Encounter: 08/13/16 Time of Encounter: 10:20 Assessment and Plan (1) Anxiety Current visit: No Status: Acute The patient is still having moments of alertness awake he is very restless and fearful. Continue light sedation to avoid distress digital lorazepam on the clock and monitor. Adjusting as needed. (2) Dyspnea Current visit: No Status: Acute Patient is currently on a morphine drip and we will adjust this as needed. Qualifiers: Dyspnea type: unspecified Qualified Code(s): R06.00 - Dyspnea, unspecified (3) Goals of care, counseling/discussion Current visit: No Status: Acute The patient is in hospice care, and of life care for acute dyspnea DNR comfort care. (4) Ineffective airway clearance Current visit: No Status: Acute Scopolamine patch and atropine drops as needed. Internal Medicine - H&P: HPI Admitted From: Intrahospital Transfer Plans for Post Hospital Care: Hospice - Home History of present illness: Mr. Cummins is a 76 year old male With a history of recent pneumonia. Came to the hospital originally for increasing shortness of breath. Padmini respiratory failure requiring intubation. Was extubated and then had to be reintubated. The family has since decided on compassionate extubation, end-of-life care with hospice pursuing no further aggressive care. The patient is currently unresponsive to voice Past Med Surg Social Fam HX - Past Medical History Medical history: arthritis, asthma, COPD, DVT, diabetes, GERD, hyperlipidemia, hypertension, kidney stones, osteoporosis, RA, renal disease, SVT, other Psychiatric history: no psych history, other - Past Surgical History Surgical History: hip replacement, ureteral stent, vascular surgery, other - Social History Smoking Status: Current every day smoker Smokeless Tobacco Status: No Alcohol use: occasionally, heavy Drug use: none - Family History Father History Unknown: Yes Living Status: Internal Medicine - H&P: Meds Warfarin [Coumadin] 5 mg PO Q48H 06/24/16 [History] Atorvastatin [Lipitor] 20 mg PO HS 07/01/16 [History] Carvedilol [Coreg] 12.5 mg PO BID 07/01/16 [History] Cholecalciferol (Vitamin D3) [Vitamin D3] 5,000 unit PO DAILY 07/01/16 [History] CloNIDine HCl [Clonidine HCl] 0.3 mg PO TID 07/01/16 [History] Doxazosin [Cardura] 4 mg PO BID 07/01/16 [History] Hydroxyzine HCl 25 mg PO Q6H 07/01/16 [History] Insulin DETEMIR [Levemir Flextouch] 26 unit SQ HS 07/01/16 [History] NIFEdipine XL (24 HR) [Procardia XL] 60 mg PO BID 07/01/16 [History] Sitagliptin Phosphate [Januvia] 50 mg PO DAILY 07/01/16 [History] Furosemide [Lasix] 40 mg PO DAILY 08/02/16 [History] Warfarin [Coumadin] 2.5 mg PO Q48H 08/02/16 [History] Allergies ciprofloxacin [From Cipro] Allergy (Verified 07/01/16 13:16) See Comments doxycycline Allergy (Verified 07/01/16 13:16) Redness of Skin Erythromycin Base Allergy (Verified 07/01/16 13:16) Rash guanfacine Allergy (Verified 07/01/16 13:16) See Comments ofloxacin Allergy (Verified 07/01/16 13:16) Hives Penicillins [PCN] Allergy (Verified 07/01/16 13:16) See Comments Procaine Allergy (Verified 07/01/16 13:16) See Comments sulfamethoxazole Allergy (Verified 07/01/16 13:16) See Comments Tocainide [From Tonocard] Allergy (Verified 07/01/16 13:16) See Comments ROS unobtainable: due to mental status Palliative Care-Exam - Constitutional General appearance: Present: no acute distress - Head Head Exam: Present: atraumatic - Eye Eye exam: Present: normal appearance - ENT ENT exam: Present: mucous membranes moist - Neck Neck exam: Present: normal inspection - Respiratory Respiratory exam: Present: decreased breath sounds, rhonchi - Cardiovascular Cardiovascular exam: Present: RRR - GI/Abdominal Exam GI/Abdominal exam: Present: normal bowel sounds, soft. Absent: tenderness - Catheter Type: Urethral (Garcia) - Extremities Exam Extremities exam: Present: normal inspection. Absent: tenderness - Neurological Exam Neurological exam: Present: altered (Unresponsive to voice, patient is on a morphine drip) - Psychiatric Psychiatric exam: Absent: agitated, anxious - Skin Skin exam: Present: dry, warm Palliative Quality Palliative Quality: Screen for Code Status: Yes, Screen for Goals of Care: Yes, Screen for Pain: Yes, If Pain Regimen Started, Initiate Bowel Regimen: Yes, Screen for Nausea/Vomitting: Yes Code Status: 08/13/16 09:41 Resuscitation Status: Active [RES] Routine Comment: Resuscitation Status: DNR-Comfort Care
--- NOTE | 2016-08-13 12:45 | Event Note ---
Date of Encounter: 08/13/16 Time of Encounter: 12:44 Hospice medical staff assistant certification of terminal illness: Hospice benefit. Start: 08/13/2016 Hospice benefit. In: +90 days Palliative performance scale: 20-30% History: Patient with recent history of pneumonia that went into respiratory failure requiring repeated intubations. Patient was compassionately extubated yesterday. The patient and family did not wish to pursue any further aggressive care. Due to the patient's respiratory status recently, as well as their desire not to pursue any further aggressive care I find that These findings support a life expectancy of 6 months or less. I attest that I have compose the above narrative based on my review of the patient's medical records, and or on my examination of the patient. Silas Alexis M.D. Associate medical billing coder. [facility]
[2016-08-13] MEDS: Morphine 50 MG in D5% in Water 45 ML IVC SCH (14:20)
[2016-08-13] MEDS ORDERED: 0.9 % Sodium Chloride 1,000 ML ONE (19:47)
[2016-08-14] MEDS: Atropine Sulfate 1% 40 DROP/2 ML BOTTLE SL PRN ×6 (03:24→23:53)
[2016-08-14] MEDS: Morphine 50 MG in D5% in Water 45 ML IVC SCH ×2 (04:03→16:10)
[2016-08-14] MEDS: *HR* LORazepam 2 MG/ML VIAL IVP SCH ×6 (04:03→23:53)
[2016-08-14] MEDS: *HR* Morphine 2 MG/ML SYRINGE IVP PRN (04:07)
--- NOTE | 2016-08-14 09:36 | Palliative Progress Note ---
Date of Encounter: 08/14/16 Time of Encounter: 09:30 - Assessment and plan (1) Dyspnea Current Visit: No Status: Acute Assessment and plan: Morphine drip was increased to 5mg late yesterday evening. Continue and titrate for comfort. Has received 4 doses for breakthrough last 24 hours, but only once since drip increased to 5. Monitor Qualifiers: Dyspnea type: unspecified Qualified Code(s): R06.00 - Dyspnea, unspecified (2) Anxiety Current Visit: No Status: Acute Assessment and plan: Continue scheduled Lorazepam and monitor. (3) Ineffective airway clearance Current Visit: No Status: Acute Assessment and plan: Continue scopolamine patch and atropine drops PRN (4) Goals of care, counseling/discussion Current Visit: No Status: Acute Assessment and plan: Son notified of increased fever, lower oxygen levels and change in breathing patterns. He verbalized understanding. did go home to rest - will be back later this am. - Time Spent With Patient Total time spent is greater than 50% in coordination of care (as documented) at patient's floor/unit and/or counseling patient: 25 - 35 minutes - Subjective Interval history: Patient not responding this am. Brief periods of apnea noted by son. Increased fevers/decreased saturations. - Constitutional General appearance: Present: mild distress - Respiratory Additional comments: Resp irreg - brief apneic periods noted. Rhonchi throughout anterior chest - Cardiovascular Cardiovascular exam: Present: irregular rhythm, tachycardia - GI/Abdominal GI/Abdominal exam: Present: hypoactive bowel sounds, soft - Additional comments: Clear yellow urine - Extremities Exam Extremities exam: Present: normal capillary refill, normal inspection - Neurological Exam Additional comments: Unresponsive to verbal and tactile stimuli at present. - Skin Skin exam: Present: dry, pallor, warm Palliative Quality Palliative Quality: Screen for Code Status: Yes, Screen for Goals of Care: Yes, Screen for Pain: Yes, If Pain Regimen Started, Initiate Bowel Regimen: Yes, Screen for Nausea/Vomitting: Yes Code Status: 08/13/16 09:41 Resuscitation Status: Active [RES] Routine Comment: Resuscitation Status: DNR-Comfort Care Consult Discharge Plan - Plan Referrals: Silas Shah MD [Primary Care Provider] -
[2016-08-15 00:38] VITALS: BP 127/73
[2016-08-15] MEDS: Morphine 50 MG in D5% in Water 45 ML IVC SCH (02:57)
[2016-08-15] MEDS: Atropine Sulfate 1% 40 DROP/2 ML BOTTLE SL PRN (04:03)
[2016-08-15] MEDS: *HR* LORazepam 2 MG/ML VIAL IVP SCH (04:03)
--- NOTE | 2016-08-15 13:48 | Death Note ---
Discharge Sum: Summary - Date and Time Date of admission: 08/13/16 11:27 Date of : 08/15/16 Time of : 04:44 - Summary Details: Mr. Cummins is a 76-year-old male patient admitted to [facility] under general inpatient hospice for intense symptom management. Mr. Cummins had a history of recurrent respiratory infections leading to respiratory failure. He was initially admitted to the hospital for acute respiratory failure and required mechanical ventilation. He was being treated for ARDS and was extubated on August 07. His condition declined and he was subsequently reintubated the next day. The palliative care team was consulted for ongoing discussions regarding goals of care and the patient's previously known wish. His family meeting the decision to transition to comfort care, and on 08/11/2016 , he was extubated. He was transitioned to the palliative care unit for further symptom management. The decision was made to pursue hospice care, but the patient was not stable for transition home. He was transitioned to general inpatient hospice care on 08/13/2016 for symptom management. His condition continued to decline. Mr. Cummins's dyspnea was treated with opioid therapy, along with management of his anxiety. On 08/15/2016, the patient spouse notified staff of a change in condition. Mr. Cummins was found to be absent of vital signs including apical heart tones, respirations, pulse, blood pressure. Time of 0444. Dr. Hill was notified, and hospice was notified. - Additional Data Family: at bedside Attending/PCP notified?: Yes Attending physician: Silas Alexis MD Was code activated?: No Autopsy requested?: No methods examiner notified?: No Organ bank notified?: Yes Advance directives: Yes Hospice patient?: Yes Discharge Sum: Diag - PCOD Probable Cause of : Respiratory arrest Discharge Sum: Prov - Provider Primary care physician: Silas Shah MD Admitting clinician: Silas Alexis Attending physician on admission: Silas Alexis Consults: 08/13/16 09:42 Consult to Palliative Care [CONS] Routine Comment: Consulting Provider: Palliative [facility] [place] Pronouncing clinician: Bradley Hill
== END 2016-08-15 04:44 | disposition expired | DRG 189 ==
LOC: 2ANU 11:27
PROVIDERS: ADMIT Family Medicine Hospice and Palliative Medicine; ATTEND Family Medicine Hospice and Palliative Medicine